=== PATIENT | male | born 1950 | race Caucasian/White ===

== ENCOUNTER 2016-12-11 20:23 | Inpatient (IN) | payer MEDICARE, OTHER ==
[~2016-12-11] VITALS: Ht 167.6 cm; Wt 110.7 kg
[~2016-12-11 20:23] MED LIST: ALBU6.7H INH; ASPI325T PO; DIGO.25 PO; DILTCD300 PO; DUONI INH; FURO80TA3 PO; HYDRA25 PO; LORA-392 PO; LOSA25 PO; METO100T PO; NEBUMIS6 INH; OMEP20CA5 PO; OXYC1TAB13 PO; POTA-243 PO; PRAV20TA67 PO; PRED10 PO; SYMB160A INH; TIOT18I INH; Z.0.OXYGENDME NC
[2016-12-11] MEDS ORDERED: SODIUM CHLOR 0.9% 1000 ML INJ 1,000 ML IV ONE ×2 (20:26→20:45)
[2016-12-11 20:29] VITALS: BP 199/81; PULSE 136; RESP 33; TEMP 100.1; O2SAT 99
[2016-12-11] MEDS ORDERED: SODIUM CHLORIDE 0.9% FLUSH 10 ML FLUSH IVF PRN (20:30)
--- NOTE | 2016-12-11 20:36 | PD ---
HPI Chief Complaint: seizure Time Seen by Provider: 20:36 Travel History International Travel<30 days: No Contact w/Intl Traveler<30days: No Traveled to known affect area: No History of Present Illness HPI 66-year-old male with history of CAD, [place] 2, hypertension, COPD, A. fib on digoxin, alcoholism per record, presents to the emergency department for evaluation. Patient allegedly contacted a friend feeling is that he is having anxiety attack. Patient then had a witnessed seizure and another one in route witnessed by [facility]. Abrasion was given 4 mg of Ativan. While postictal, he was combative with [facility] staff. Patient is a poor historian, answers yes when asked if he drinks alcohol regularly and answered no when asked if he has been drinking today. Patient says no when asked if he is having any pain. Patient has obvious bite to the tongue. No apparent stool or bladder incontinence. PFSH Past Medical History Arthritis: Yes Asthma: Yes Blood Disorders: No Anxiety: Yes Depression: No Heart Rhythm Problems: Yes ( ) Cancer: No Cardiac Catheterization: Yes (X2) Cardiovascular Problems: Yes High Cholesterol: Yes Chemotherapy: No Chest Pain: Yes Congestive Heart Failure: Yes COPD: Yes Coronary Artery Disease: Yes (STATES PARTIAL BLOCKAGES) Diabetes: No Diminished Hearing: No Endocrine: No Gastrointestinal Disorders: Yes GERD: Yes Genitourinary: No Headaches: Yes Hypertension: Yes Immune Disorder: No Kidney Stones: Yes Musculoskeletal: Yes Neurologic: Yes Psychiatric: Yes Reproductive: No Respiratory: Yes (CHRONIC BRONCHITIS) Immunizations Current: Yes Myocardial Infarction: Yes (STATES SMALL ONES TIMES TWO) Radiation Therapy: No Ulcer: Yes Past Surgical History AICD: No Arteriovenous Shunt: No Body Medical Devices: IMPLANTED TITANIUM DEVICES [RODS & SCREWS] IN BACK Coronary Artery Bypass Graft: Yes Insulin Pump: No Joint Replacement: No Oral Surgery: Yes (CYST REMOVED THROAT 70'S) Pacemaker: No Other Surgery: Yes (CARPAL TUNNEL) Social History Alcohol Use: Yes (FEW/WEEK) Tobacco Use: Yes (QUIT 19 DAYS AGO) Substance Use: No Allergies-Medications (Allergen,Severity, Reaction): Coded Allergies: Lisinopril (Verified Allergy, Severe, Edema, 12/11/16) Simvastatin (Verified Allergy, Severe, 12/11/16) Reported Meds & Prescriptions Reported Meds & Active Scripts Active Review of Systems Except as stated in HPI: all other systems reviewed are Neg Physical Exam Narrative GENERAL: Well nourished male patient, obtunded; arousable with garbled speech and snoring respirations SKIN: Focused skin assessment warm/dry. 3cm, approximated Skin tear to left hand. multiple ecchymotic markings on Bilateral upper extremities. HEAD: Atraumatic. Normocephalic. EYES: Pupils equal and round. No scleral icterus. No injection or drainage. ENT: No nasal bleeding or discharge. Mucous membranes pink and moist. Poor dentition; bite to right side of tongue NECK: Trachea midline. No JVD. CARDIOVASCULAR: Tachycardic rate and irregular rhythm. No murmur appreciated. RESPIRATORY: No accessory muscle use. Clear to auscultation. Breath sounds equal bilaterally. GASTROINTESTINAL: Abdomen soft, rotund hepatic and splenic margins not palpable. MUSCULOSKELETAL: No obvious deformities. No clubbing. No cyanosis. No edema. NEUROLOGICAL: Obtunded.Unable to assess cranial nerves. Moves all extremities Garbled speech. Data Data Last Documented VS Vital Signs Date Time Temp Pulse Resp B/P Pulse Ox O2 Delivery O2 Flow Rate FiO2 12/11/16 21:15 114 25 145/80 99 Nasal Cannula 2 12/11/16 20:29 100.1 Orders Complete Blood Count With Diff (12/11/16 20:26) Alcohol (Ethanol) (12/11/16 20:26) Electrocardiogram (12/11/16 ) Ct Brain W/O Iv Contrast(Rout) (12/11/16 ) Blood Glucose (12/11/16 20:26) Ecg Monitoring (12/11/16 20:26) Iv Access Insert/Monitor (12/11/16 20:26) Oximetry (12/11/16 20:26) Comprehensive Metabolic Panel (12/11/16 20:26) Sodium Chlor 0.9% 1000 Ml Inj (Ns 1000 M (12/11/16 20:26) Sodium Chloride 0.9% Flush (Ns Flush) (12/11/16 20:30) Ua Includes Microscopic (12/11/16 20:26) Ct Facial Bones W/O Iv Cont (12/11/16 ) Magnesium (Mg) (12/11/16 20:26) Sodium Chlor 0.9% 1000 Ml Inj (Ns 1000 M (12/11/16 20:45) Lorazepam Inj (Ativan Inj) (12/11/16 20:45) Lactic Acid Sepsis Protocol (12/11/16 20:39) Blood Culture (12/11/16 20:39) Chest, Single Ap (12/11/16 20:39) Oxygen Administration (12/11/16 20:39) Vancomycin Inj (Vancomycin Inj) (12/11/16 20:39) Cefepime Inj (Maxipime Inj) (12/11/16 20:39) Digoxin (12/11/16 20:57) 3% Saline Inj (Sodium Chloride 3% Inj) (12/11/16 22:00) Admit Order (Ed Use Only) (12/11/16 21:49) Labs Laboratory Tests Test 12/11/16 20:30 White Blood Count 20.5 TH/MM3 Red Blood Count 3.84 MIL/MM3 Hemoglobin 11.5 GM/DL Hematocrit 33.4 % Mean Corpuscular Volume 87.0 FL Mean Corpuscular Hemoglobin 30.1 PG Mean Corpuscular Hemoglobin 34.5 % Concent Red Cell Distribution Width 14.4 % Platelet Count 324 TH/MM3 Mean Platelet Volume 8.7 FL Neutrophils (%) (Auto) 84.1 % Lymphocytes (%) (Auto) 7.0 % Monocytes (%) (Auto) 8.7 % Eosinophils (%) (Auto) 0.1 % Basophils (%) (Auto) 0.1 % Neutrophils # (Auto) 17.2 TH/MM3 Lymphocytes # (Auto) 1.4 TH/MM3 Monocytes # (Auto) 1.8 TH/MM3 Eosinophils # (Auto) 0.0 TH/MM3 Basophils # (Auto) 0.0 TH/MM3 CBC Comment AUTO DIFF Sodium Level 112 MEQ/L Potassium Level 4.5 MEQ/L Chloride Level 76 MEQ/L Carbon Dioxide Level 18.7 MEQ/L Anion Gap 17 MEQ/L Blood Urea Nitrogen 12 MG/DL Creatinine 1.06 MG/DL Estimat Glomerular Filtration 70 ML/MIN Rate Random Glucose 99 MG/DL Calcium Level 8.2 MG/DL Magnesium Level 1.9 MG/DL Total Bilirubin 1.4 MG/DL Aspartate Amino Transf 31 U/L (AST/SGOT) Alanine Aminotransferase 31 U/L (ALT/SGPT) Alkaline Phosphatase 179 U/L Total Protein 6.9 GM/DL Albumin 3.8 GM/DL Ethyl Alcohol Level LESS THAN 3 MG/DL MDM Medical Decision Making Medical Screen Exam Complete: Yes Emergency Medical Condition: Yes Medical Record Reviewed: Yes Differential Diagnosis Alcohol withdrawal seizure versus electrolyte abnormality versus abscess versus cardiac etiology versus ich Narrative Course 56-year-old male presents to the emergency department for evaluation following a seizure patient was given 4 mg of Ativan in route. He is assessed by myself and my attending physician Dr. Ring. Patient is given additional Ativan. No seizure activity here. Patient appears to be postictal, attentive, arousable. He is poor historian . He has obvious bite to his tongue. Poor dentition. Sepsis workup was initiated. Pt is given IV Cefepime and Vancomycin Laboratory Tests Test 12/11/16 20:30 White Blood Count 20.5 TH/MM3 Red Blood Count 3.84 MIL/MM3 Hemoglobin 11.5 GM/DL Hematocrit 33.4 % Mean Corpuscular Volume 87.0 FL Mean Corpuscular Hemoglobin 30.1 PG Mean Corpuscular Hemoglobin 34.5 % Concent Red Cell Distribution Width 14.4 % Platelet Count 324 TH/MM3 Mean Platelet Volume 8.7 FL Neutrophils (%) (Auto) 84.1 % Lymphocytes (%) (Auto) 7.0 % Monocytes (%) (Auto) 8.7 % Eosinophils (%) (Auto) 0.1 % Basophils (%) (Auto) 0.1 % Neutrophils # (Auto) 17.2 TH/MM3 Lymphocytes # (Auto) 1.4 TH/MM3 Monocytes # (Auto) 1.8 TH/MM3 Eosinophils # (Auto) 0.0 TH/MM3 Basophils # (Auto) 0.0 TH/MM3 CBC Comment AUTO DIFF Sodium Level 112 MEQ/L Potassium Level 4.5 MEQ/L Chloride Level 76 MEQ/L Carbon Dioxide Level 18.7 MEQ/L Anion Gap 17 MEQ/L Blood Urea Nitrogen 12 MG/DL Creatinine 1.06 MG/DL Estimat Glomerular Filtration 70 ML/MIN Rate Random Glucose 99 MG/DL Calcium Level 8.2 MG/DL Magnesium Level 1.9 MG/DL Total Bilirubin 1.4 MG/DL Aspartate Amino Transf 31 U/L (AST/SGOT) Alanine Aminotransferase 31 U/L (ALT/SGPT) Alkaline Phosphatase 179 U/L Total Protein 6.9 GM/DL Albumin 3.8 GM/DL Ethyl Alcohol Level LESS THAN 3 MG/DL Dr. Ring contacted Dr. De Dios, bender helper inspector structural bonding. Patient be admitted to the intensive care unit. He remains obtunded, arousable, with garbled speech, following simple commands. CT imaging has been ordered however this is Dr. completed due to patient's constant moving. CT has been contacted and to reattempt this. Diagnosis Primary Impression: Seizure Additional Impressions: Hyponatremia Alcoholism Admitting Information Admitting Physician Requests: Admit Condition: Stable Keisha Rodrigues Dec 11, 2016 20:36
[2016-12-11] MEDS ORDERED: CEFEPIME INJ 2,000 MG in SODIUM CHLORIDE 0.9% INJ 100 ML IV STA (20:39)
[2016-12-11] MEDS ORDERED: VANCOMYCIN INJ 1,000 MG in SODIUM CHLOR 0.9% 250 ML INJ 250 ML IV STA (20:39)
[2016-12-11 20:45] VITALS: BP 168/77; PULSE 120; RESP 25; O2SAT 99
[2016-12-11] MEDS ORDERED: LORazepam 2 MG/ML VIAL IV PUSH ONE (20:45)
[2016-12-11 21:08] LABS: AUTOMATED NEUTROPHIL # 17.2 TH/MM3 (1.8-7.7); BASOPHIL % 0.1 % (0.0-2.0); EOSINOPHIL % 0.1 % (0.0-4.0); HEMATOCRIT 33.4 % (39.0-51.0); LYMPHOCYTE # 1.4 TH/MM3 (1.0-4.8); MEAN CORPUSCULAR HEMOGLOBIN 30.1 PG (27.0-34.0); MEAN CORPUSCULAR HGB CONC 34.5 % (32.0-36.0); MONO % 8.7 % (0.0-8.0); NEUT % 84.1 % (16.0-70.0); PLATELET COUNT 324 TH/MM3 (150-450); RED BLOOD COUNT 3.84 MIL/MM3 (4.50-5.90); RED CELL DISTRIBUTION WIDTH 14.4 % (11.6-17.2); WHITE BLOOD COUNT 20.5 TH/MM3 (4.0-11.0)
[2016-12-11 21:15] VITALS: BP 145/80; PULSE 114; RESP 25; O2SAT 99
[2016-12-11 21:22] LABS: HEMO FLAGS AUTO DIFF
--- NOTE | 2016-12-11 21:33 | RADRPT ---
EXAM DATE/TIME: 12/11/2016 20:53 [facility] COMPARISON: CHEST PA & LAT, September 05, 2014, 9:43. CHEST SINGLE AP, August 24, 2014, 16:36. INDICATIONS : Sycopal episode. MEDICAL HISTORY : Unobtainable. SURGICAL HISTORY : Unobtainable. ENCOUNTER: Initial ACUITY: 1 day PAIN SCORE: Non-responsive. LOCATION: chest FINDINGS: Single AP view of the chest. Mild cardiac silhouette enlargement of central pulmonary vasculature pro minence and mild indistinctness. No evidence of pleural effusion or pneumothorax. CONCLUSION: Mild cardiac silhouette enlargement and mild pulmonary vascular congestion. Morteza Zamora MD on December 11, 2016 at 21:29 Board Certified Radiologist. This report was verified electronically.
[2016-12-11 21:39] LABS: ALKALINE PHOSPHATASE 179 U/L (45-117); ALT (GPT) 31 U/L (12-78); ANION GAP 17 MEQ/L (5-15); AST (GOT) 31 U/L (15-37); BICARBONATE 18.7 MEQ/L (21.0-32.0); BLOOD UREA NITROGEN 12 MG/DL (7-18); CHLORIDE 76 MEQ/L (98-107); GLOMERULAR FILTRATION RATE 70 ML/MIN (>89); MAGNESIUM 1.9 MG/DL (1.5-2.5); POTASSIUM 4.5 MEQ/L (3.5-5.1); TOTAL BILIRUBIN ADULT 1.4 MG/DL (0.2-1.0)
[2016-12-11 21:42] LABS: SODIUM (NA) 112 MEQ/L (136-145)
--- NOTE | 2016-12-11 21:58 | PD ---
Data Data Last Documented VS Vital Signs Date Time Temp Pulse Resp B/P Pulse Ox O2 Delivery O2 Flow Rate FiO2 12/11/16 21:15 114 25 145/80 99 Nasal Cannula 2 12/11/16 20:29 100.1 Orders Complete Blood Count With Diff (12/11/16 20:26) Alcohol (Ethanol) (12/11/16 20:26) Electrocardiogram (12/11/16 ) Ct Brain W/O Iv Contrast(Rout) (12/11/16 ) Blood Glucose (12/11/16 20:26) Ecg Monitoring (12/11/16 20:26) Iv Access Insert/Monitor (12/11/16 20:26) Oximetry (12/11/16 20:26) Comprehensive Metabolic Panel (12/11/16 20:26) Sodium Chlor 0.9% 1000 Ml Inj (Ns 1000 M (12/11/16 20:26) Sodium Chloride 0.9% Flush (Ns Flush) (12/11/16 20:30) Ua Includes Microscopic (12/11/16 20:26) Ct Facial Bones W/O Iv Cont (12/11/16 ) Magnesium (Mg) (12/11/16 20:26) Sodium Chlor 0.9% 1000 Ml Inj (Ns 1000 M (12/11/16 20:45) Lorazepam Inj (Ativan Inj) (12/11/16 20:45) Lactic Acid Sepsis Protocol (12/11/16 20:39) Blood Culture (12/11/16 20:39) Chest, Single Ap (12/11/16 20:39) Oxygen Administration (12/11/16 20:39) Vancomycin Inj (Vancomycin Inj) (12/11/16 20:39) Cefepime Inj (Maxipime Inj) (12/11/16 20:39) Digoxin (12/11/16 20:57) 3% Saline Inj (Sodium Chloride 3% Inj) (12/11/16 22:00) Admit Order (Ed Use Only) (12/11/16 21:49) Labs Laboratory Tests Test 12/11/16 20:30 White Blood Count 20.5 TH/MM3 Red Blood Count 3.84 MIL/MM3 Hemoglobin 11.5 GM/DL Hematocrit 33.4 % Mean Corpuscular Volume 87.0 FL Mean Corpuscular Hemoglobin 30.1 PG Mean Corpuscular Hemoglobin 34.5 % Concent Red Cell Distribution Width 14.4 % Platelet Count 324 TH/MM3 Mean Platelet Volume 8.7 FL Neutrophils (%) (Auto) 84.1 % Lymphocytes (%) (Auto) 7.0 % Monocytes (%) (Auto) 8.7 % Eosinophils (%) (Auto) 0.1 % Basophils (%) (Auto) 0.1 % Neutrophils # (Auto) 17.2 TH/MM3 Lymphocytes # (Auto) 1.4 TH/MM3 Monocytes # (Auto) 1.8 TH/MM3 Eosinophils # (Auto) 0.0 TH/MM3 Basophils # (Auto) 0.0 TH/MM3 CBC Comment AUTO DIFF Sodium Level 112 MEQ/L Potassium Level 4.5 MEQ/L Chloride Level 76 MEQ/L Carbon Dioxide Level 18.7 MEQ/L Anion Gap 17 MEQ/L Blood Urea Nitrogen 12 MG/DL Creatinine 1.06 MG/DL Estimat Glomerular Filtration 70 ML/MIN Rate Random Glucose 99 MG/DL Calcium Level 8.2 MG/DL Magnesium Level 1.9 MG/DL Total Bilirubin 1.4 MG/DL Aspartate Amino Transf 31 U/L (AST/SGOT) Alanine Aminotransferase 31 U/L (ALT/SGPT) Alkaline Phosphatase 179 U/L Total Protein 6.9 GM/DL Albumin 3.8 GM/DL Ethyl Alcohol Level LESS THAN 3 MG/DL MDM Supervised Visit with VERENA: Yes Narrative Course The history, exam, and medical decision-making in the associated mid-level provider note were completed with my assistance. I reviewed and agree with the findings presented. I attest that I had a [id number] encounter with the patient on the same day, and personally performed and documented my assessment and findings in the medical record. *My assessment and Findings: 66-year-old man with seizures, tachycardic and tremulous history of occult was him. Concern for alcohol withdrawal or sepsis. Sodium is at 112. Likely some component of chronic disease. Was given antibiotics, benzodiazepines, IV fluids. Patient was admitted to the ICU. We'll give hypertonic saline, and reassess. Condition: Stable Abdon Ring MD Dec 11, 2016 21:58
[2016-12-11] MEDS ORDERED: 3% SALINE INJ 250 ML IV ONE (22:00)
[2016-12-11 22:04] LABS: BLOOD, URINE NEG (NEG); GLUCOSE,URINE NEG (NEG); HYALINE CAST, URINE 3 /lpf (RARE); KETONE, URINE 10 mg/dL (NEG); NITRITE,URINE NEG (NEG); PH, URINE 6.5 (5.0-8.5); SQUAMOUS EPITHELIAL CELL URINE <1 /hpf (0-5); URINE COLOR YELLOW (YELLW/STRAW)
[2016-12-11] MEDS ORDERED: SODIUM CHLOR 0.9% 1000 ML INJ 1,000 ML IV SCH (22:04)
--- NOTE | 2016-12-11 22:12 | HHI.HP ---
[facility] Service Critical Care Medicine Primary Care Physician [facility] Admission Diagnosis SEIZURES; HYPONATREMIA; SUSPECTED ALCOHOL WITHDRAWAL Diagnosis: Travel History International Travel<30 Days: No Contact w/Intl Traveler <30 Da: No Traveled to Known Affected Are: No History of Present Illness 66-year-old male with history of CAD, [place] 2, hypertension, COPD, A. fib on digoxin, alcoholism per record, presents to the emergency department for evaluation. Patient allegedly contacted a friend feeling is that he is having anxiety attack. Patient then had a witnessed seizure and another one in route witnessed by [facility]. Abrasion was given 4 mg of Ativan. While postictal, he was combative with [facility] staff. Patient is a poor historian, answers yes when asked if he drinks alcohol regularly and answered no when asked if he has been drinking today. Patient says no when asked if he is having any pain. Patient has obvious bite to the tongue. No apparent stool or bladder incontinence. Review of Systems ROS Unable to obtain patient is too lethargic and confused Past Family Social History Allergies: Coded Allergies: Lisinopril (Verified Allergy, Severe, Edema, 12/11/16) Simvastatin (Verified Allergy, Severe, 12/11/16) Past Medical History COPD Chronic back pain Alcohol abuse Tobacco abuse Coronary artery disease CHF with EF 50-55% Atrial fibrillation Hypertension Past Surgical History Carpal tunnel surgery CABG Reported Medications Reported Meds & Active Scripts Active Active Prescriptions or Reported Medications Unobtainable Active Ordered Medications Current Medications Medications (Trade) Dose Ordered Sig/Theron Route PRN Reason Start Time Stop Time Status Last Admin Dose Admin Sodium Chloride 250 ml @ 10 mls/hr ONCE ONCE IV 12/11/16 22:00 12/12/16 22:59 12/11/16 22:43 Sodium Chloride (NS 1000 ml Inj) 1,000 ml @ 84 mls/hr [id number] IV 12/11/16 22:04 12/11/16 22:24 Sodium Chloride (NS Flush) 2 ml UNSCH PRN .XX FLUSH AFTER USING IV ACCESS 12/11/16 22:15 Sodium Chloride (NS Flush) 2 ml BID .XX 12/12/16 09:00 Acetaminophen (Tylenol) 650 mg Q6H PRN PO PAIN 1-10 AND/OR FEVER >101F 12/11/16 22:15 Morphine Sulfate (Morphine Inj) 2 mg Q2H PRN IV PAIN SCALE 6 TO 10 12/11/16 22:15 Pantoprazole Sodium (Protonix Inj) 40 mg DAILY IV 12/12/16 09:00 Ondansetron HCl (Zofran Inj) 4 mg Q6H PRN IV MILD NAUSEA OR VOMITING 12/11/16 22:15 Metoclopramide HCl (Reglan Inj) 10 mg Q6H PRN IV MODERATE NAUSEA OR VOMITING 12/11/16 22:15 Prochlorperazine (Compazine Supp) 25 mg Q12H PRN RECTAL NAUSEA OR VOMITING 12/11/16 22:15 Zolpidem Tartrate (Ambien) 5 mg HS PRN PO INSOMNIA 12/11/16 22:15 Miscellaneous Information 1 [id number] XX 12/11/16 22:15 12/12/16 00:30 Chlorhexidine Gluconate (Chlorhexidine 2% Cloth) 3 pack Taper DAILY@04 TOP 12/12/16 04:00 12/08/17 03:59 12/12/16 01:00 Chlorhexidine Gluconate (Chlorhexidine 2% Cloth) 3 pack UNSCH PRN TOP HYGIENIC CARE 12/11/16 22:15 Senna/Docusate Sodium (Lisa-Colace) 1 tab BID PO 12/12/16 09:00 Magnesium Hydroxide (Milk Of Magnesia Liq) 30 ml Q12H PRN PO MILD - MODERATE CONSTIPATION 12/11/16 22:15 Sennosides (Senokot) 17.2 mg Q12H PRN PO MODERATE - SEVERE CONSTIPATION 12/11/16 22:15 Bisacodyl (Dulcolax Supp) 10 mg DAILY PRN RECTAL SEVERE CONSITIPATION 12/11/16 22:15 Lactulose (Lactulose Liq) 30 ml DAILY PRN PO SEVERE CONSITIPATION 12/11/16 22:15 Flumazenil (Romazicon Inj) 0.2 mg Q1M PRN IV PUSH SEE LABEL COMMENTS 12/11/16 22:45 Lorazepam (Ativan) 1 mg Q4H PRN PO CIWA 8 - 10 12/11/16 22:45 Lorazepam (Ativan Inj) 1 mg Q4H PRN IV PUSH CIWA 8 - 10 12/11/16 22:45 Lorazepam (Ativan) 2 mg Q2H PRN PO CIWA 11-14 12/11/16 22:45 Lorazepam (Ativan Inj) 2 mg Q2H PRN IV PUSH CIWA 11-14 12/11/16 22:45 Lorazepam (Ativan Inj) 2 mg Q1H PRN IV PUSH CIWA 15-20 12/11/16 22:45 Lorazepam (Ativan Inj) 2 mg Q15M PRN IV PUSH CIWA > 20 12/11/16 22:45 Family History Noncontributory Social History Tobacco and alcohol abuse No illicit drug abuse Physical Exam Vital Signs Vital Signs Date Time Temp Pulse Resp B/P Pulse Ox O2 Delivery O2 Flow Rate FiO2 12/11/16 21:15 114 25 145/80 99 Nasal Cannula 2 12/11/16 20:45 99 Nasal Cannula 2 12/11/16 20:45 120 25 168/77 99 Nasal Cannula 2 12/11/16 20:29 100.1 136 33 199/81 99 Physical Exam GENERAL: Obese male confused and lethargic however in no acute distress SKIN: Warm and dry. HEAD: Normocephalic. EYES: No scleral icterus. No injection or drainage. NECK: Supple, trachea midline. No JVD or lymphadenopathy. CARDIOVASCULAR: Regular rate and rhythm without murmurs, gallops, or rubs. RESPIRATORY: Breath sounds equal bilaterally. No accessory muscle use. GASTROINTESTINAL: Abdomen soft, non-tender, nondistended. MUSCULOSKELETAL: No cyanosis, or edema. BACK: Nontender without obvious deformity. No CVA tenderness. EXTREMITIES: No clubbing cyanosis or edema Laboratory Laboratory Tests Test 12/11/16 12/11/16 20:30 21:30 White Blood Count 20.5 Red Blood Count 3.84 Hemoglobin 11.5 Hematocrit 33.4 Mean Corpuscular Volume 87.0 Mean Corpuscular Hemoglobin 30.1 Mean Corpuscular Hemoglobin 34.5 Concent Red Cell Distribution Width 14.4 Platelet Count 324 Mean Platelet Volume 8.7 Neutrophils (%) (Auto) 84.1 Lymphocytes (%) (Auto) 7.0 Monocytes (%) (Auto) 8.7 Eosinophils (%) (Auto) 0.1 Basophils (%) (Auto) 0.1 Neutrophils # (Auto) 17.2 Lymphocytes # (Auto) 1.4 Monocytes # (Auto) 1.8 Eosinophils # (Auto) 0.0 Basophils # (Auto) 0.0 CBC Comment AUTO DIFF Sodium Level 112 Potassium Level 4.5 Chloride Level 76 Carbon Dioxide Level 18.7 Anion Gap 17 Blood Urea Nitrogen 12 Creatinine 1.06 Estimat Glomerular Filtration 70 Rate Random Glucose 99 Calcium Level 8.2 Magnesium Level 1.9 Total Bilirubin 1.4 Aspartate Amino Transf 31 (AST/SGOT) Alanine Aminotransferase 31 (ALT/SGPT) Alkaline Phosphatase 179 Total Protein 6.9 Albumin 3.8 Ethyl Alcohol Level LESS THAN 3 Urine Color YELLOW Urine Turbidity CLEAR Urine pH 6.5 Urine Specific [place] 1.008 Urine Protein 30 Urine Glucose (UA) NEG Urine Ketones 10 Urine Occult Blood NEG Urine Nitrite NEG Urine Bilirubin NEG Urine Urobilinogen LESS THAN 2.0 Urine Leukocyte Esterase NEG Urine WBC LESS THAN 1 Urine Squamous Epithelial <1 Cells Urine Hyaline Casts 3 Microscopic Urinalysis Comment Date/Time Procedure Status Source Growth 12/11/16 20:45 Aerobic Blood Culture Received Blood Peripheral Pending 12/11/16 20:45 Anaerobic Blood Culture Received Blood Peripheral Pending Result Diagram: 12/11/16202912/11/162029 Imaging Last 24 hours Impressions Chest X-Ray 12/11/162038 Signed Impressions: Service Date/Time: Sunday, December 11, 2016 20:53 - CONCLUSION: Mild cardiac silhouette enlargement and mild pulmonary vascular congestion. Morteza Zamora MD Assessment and Plan Assessment and Plan Seizure - Underlying severe hyponatremia - Possible alcohol withdrawal - Ativan when necessary - Monitor for withdrawal - CIWA protocol Hyponatremia - Most likely chronic due to alcohol abuse - 3% sodium chloride initiated in the ED due to neurological symptomatology - Sodium level every 4 hours Alcohol abuse - Monitor for withdrawal - CIWA protocol and medications Lactic acidosis - Due to seizure - Aggressive IV fluid hydration - Monitor trend DVT GI prophylaxis - Teds SCDs subcutaneous heparin - IV Protonix Critical Care: The total critical care time was 35 minutes. Time to perform other separately billable procedures was not included in the critical care time. Raheem De Dios MD Dec 11, 2016 22:12
[2016-12-11] MEDS ORDERED: METOCLOPRAMIDE HCL 10 MG/2 ML VIAL IV PRN (22:15)
[2016-12-11] MEDS ORDERED: SENNOSIDES 8.6 MG TAB PO PRN (22:15)
[2016-12-11] MEDS ORDERED: BISACODYL 10 MG SUPP RECTAL PRN (22:15)
[2016-12-11] MEDS ORDERED: MORPHINE SULFATE 4 MG/ML INJ IV PRN (22:15)
[2016-12-11] MEDS ORDERED: MISCELLANEOUS NURSING INFORMATION XX SCH (22:15)
[2016-12-11] MEDS ORDERED: PROCHLORPERAZINE 25 MG SUPP RECTAL PRN (22:15)
[2016-12-11] MEDS ORDERED: SODIUM CHLORIDE 0.9% FLUSH 10 ML FLUSH PRN (22:15)
[2016-12-11] MEDS ORDERED: ONDANSETRON HCL 4 MG/2 ML VIAL IV PRN (22:15)
[2016-12-11] MEDS ORDERED: LACTULOSE SYRUP 20 GM/30 ML CUP PO PRN (22:15)
[2016-12-11] MEDS ORDERED: ZOLPIDEM TARTRATE 5 MG TAB PO PRN (22:15)
[2016-12-11] MEDS ORDERED: CHLORHEXIDINE GLUCONATE 2 % 1 PACK (2 CLOTHS) TOP PRN (22:15)
[2016-12-11] MEDS ORDERED: MAGNESIUM HYDROXIDE SUSP 30 ML CUP PO PRN (22:15)
[2016-12-11] MEDS ORDERED: ACETAMINOPHEN 325 MG TAB PO PRN (22:15)
[2016-12-11 22:23] VITALS: BP 174/67; PULSE 105; RESP 22; O2SAT 100
[2016-12-11] MEDS ORDERED: FLUMAZENIL 0.5 MG/5 ML VIAL IV PUSH PRN (22:45)
[2016-12-11] MEDS ORDERED: LORazepam 2 MG/ML VIAL IV PUSH PRN (22:45)
[2016-12-11] MEDS ORDERED: LORazepam 2 MG TAB PO PRN (22:45)
[2016-12-11] MEDS ORDERED: LORazepam 1 MG TAB PO PRN (22:45)
[2016-12-11 22:49] LABS: AMPHETAMINE, URINE NEG (NEG); BARBITURATES, URINE NEG (NEG); COCAINE, URINE NEG (NEG)
[2016-12-11 22:57] VITALS: BP 166/77; PULSE 98; RESP 23; TEMP 100.5; O2SAT 100
[2016-12-11 22:57] LABS: DIGOXIN LESS THAN 0.1 NG/ML (0.8-2.0)
[2016-12-11 22:58] LABS: LACTIC ACID GHOST NOT REPORTABLE
[2016-12-11 23:38] LABS: PLATELET ESTIMATE SMEAR NORMAL (NORMAL); PLATELET MORPHOLOGY NORMAL (NORMAL); SCAN/DIFF AUTO DIFF CONFIRMED
[2016-12-12] VITALS (15 sets, daily range): BP systolic 108–173; BP diastolic 61–104; PULSE 92–130; RESP 17–30; TEMP 97.2–98.9; O2SAT 92–97
--- NOTE | 2016-12-12 00:39 | RADRPT ---
EXAM DATE/TIME: 12/12/2016 00:11 [facility] COMPARISON: No previous studies available for comparison. INDICATIONS : Trauma, fall. Altered mental status. RADIATION DOSE: 56.35 CTDIvol (mGy) MEDICAL HISTORY : Non-responsive. SURGICAL HISTORY : Non-responsive. ENCOUNTER: Initial ACUITY: 1 day PAIN SCALE: Non-responsive LOCATION: cranial TECHNIQUE: Multiple contiguous axial images were obtained of the head. Using automated exposure control and adj ustment of the mA and/or kV according to patient size, radiation dose was kept as low as reasonably a chievable to obtain optimal diagnostic quality images. FINDINGS: CEREBRUM: The ventricles are normal for age. No evidence of midline shift, mass lesion, hemorrhage or acute in farction. No extra-axial fluid collections are seen. POSTERIOR FOSSA: The cerebellum and brainstem are intact. The 4th ventricle is midline. The cerebellopontine angle i s unremarkable. EXTRACRANIAL: The visualized portion of the orbits is intact. SKULL: The calvaria is intact. No evidence of skull fracture. CONCLUSION: Normal examination for a patient of this age. Robe Lester MD on December 12, 2016 at 0:35 Board Certified Radiologist. This report was verified electronically.
--- NOTE | 2016-12-12 00:43 | RADRPT ---
EXAM DATE/TIME: 12/12/2016 00:13 [facility] COMPARISON: No previous studies available for comparison. INDICATIONS : Trauma, fall. Altered mental status / sepsis. RADIATION DOSE: 21.96 CTDIvol (mGy) MEDICAL HISTORY : Non-responsive. SURGICAL HISTORY : Non-responsive. ENCOUNTER: Initial ACUITY: 1 day PAIN SCORE: Non-responsive LOCATION: facial TECHNIQUE: Volumetric scanning of the facial bones was performed. Using automated exposure control and adjustme nt of the mA and/or kV according to patient size, radiation dose was kept as low as reasonably achiev able to obtain optimal diagnostic quality images. FINDINGS: ORBITS: The orbital and infraorbital osseous structures are intact. The retroconal structures have a normal configuration. No radiopaque foreign bodies are seen. NASAL BONE: The nasal bone and maxillary spine are intact ZYGOMATIC ARCHES: Symmetric without evidence of fracture. SINUSES: The maxillary, ethmoid and frontal sinuses are intact. No air-fluid levels seen. NASAL CAVITY: The nasal septum is intact and midline. The lacrimal ducts are intact. SOFT TISSUES: No radiopaque foreign bodies seen. No soft-tissue swelling is seen. INTRACRANIAL: No intracranial air seen. CRIBIFORM PLATE: Grossly intact. CONCLUSION: 1. No acute findings. Exam degraded by some motion artifact. Robe Lester MD on December 12, 2016 at 0:38 Board Certified Radiologist. This report was verified electronically.
[2016-12-12] MEDS: CHLORHEXIDINE GLUCONATE 2 % 1 PACK (2 CLOTHS) TOP SCH (01:00)
[2016-12-12 03:47] LABS: BASOPHIL % 0.3 % (0.0-2.0); EOSINOPHIL % 0.3 % (0.0-4.0); HEMATOCRIT 29.9 % (39.0-51.0); HEMO FLAGS DIFF FINAL; LYMPH % 9.1 % (9.0-44.0); LYMPHOCYTE # 1.1 TH/MM3 (1.0-4.8); MEAN CELL VOLUME 87.5 FL (80.0-100.0); MEAN CORPUSCULAR HGB CONC 35.4 % (32.0-36.0); MONO % 10.4 % (0.0-8.0); NEUT % 79.9 % (16.0-70.0); PLATELET COUNT 164 TH/MM3 (150-450); RED BLOOD COUNT 3.42 MIL/MM3 (4.50-5.90); RED CELL DISTRIBUTION WIDTH 14.2 % (11.6-17.2); WHITE BLOOD COUNT 12.5 TH/MM3 (4.0-11.0)
[2016-12-12 04:10] LABS: PROTHROMBIN TIME - PATIENT 11.5 SEC (9.8-11.6)
[2016-12-12 04:21] LABS: ALT (GPT) 27 U/L (12-78); ANION GAP 11 MEQ/L (5-15); AST (GOT) 48 U/L (15-37); BICARBONATE 25.4 MEQ/L (21.0-32.0); BLOOD UREA NITROGEN 11 MG/DL (7-18); CHLORIDE 91 MEQ/L (98-107); GLOMERULAR FILTRATION RATE 107 ML/MIN (>89); MAGNESIUM 2.1 MG/DL (1.5-2.5); POTASSIUM 3.6 MEQ/L (3.5-5.1); SODIUM (NA) 127 MEQ/L (136-145)
[2016-12-12 04:25] LABS: ALKALINE PHOSPHATASE 139 U/L (45-117); CREATINE KINASE 1587 U/L (39-308); TOTAL BILIRUBIN ADULT 0.9 MG/DL (0.2-1.0)
[2016-12-12 04:49] LABS: CKMB 10.1 NG/ML (0.5-3.6)
[2016-12-12] MEDS: DEXT 5%-NACL 0.45% 1000 ML INJ 1,000 ML IV SCH ×2 (05:48→17:16)
[2016-12-12] MEDS: SODIUM CHLORIDE 0.9% FLUSH 10 ML FLUSH SCH ×2 (08:27→20:05)
[2016-12-12] MEDS: PANTOPRAZOLE SODIUM 40 MG VIAL IV SCH (08:27)
[2016-12-12] MEDS: DOCUSATE SODIUM 50 MG/SENNA 8.6 MG TAB PO SCH ×2 (08:27→20:05)
--- NOTE | 2016-12-12 12:01 | HHI.CCPN ---
Subjective Remarks/Hospital Course 66-year-old male with history of CAD, [place] 2, hypertension, COPD, A. fib on digoxin, alcoholism per record, presents to the emergency department for evaluation. Patient allegedly contacted a friend feeling is that he is having anxiety attack. Patient then had a witnessed seizure and another one in route witnessed by [facility]. Abrasion was given 4 mg of Ativan. While postictal, he was combative with [facility] staff. Patient is a poor historian, answers yes when asked if he drinks alcohol regularly and answered no when asked if he has been drinking today. Patient says no when asked if he is having any pain. Patient has obvious bite to the tongue. No apparent stool or bladder incontinence. Subjective: 12/12: Patient has been lethargic all morning, polyuria. Approximately 1 L/hour over the last 4 hours diuresis. Hyponatremia lab workup initiated. This likely due to 3% normal saline instillation in the ED, an osmotic diuresis. Neurological monitoring, hourly. Concern for cerebral edema secondary to rapid correction of sodium level. The patient received 3 L normal saline and 3% saline in the ED. Sodium level increased from 112 to 132 in less than 12 hours. Morphine, Ambien discontinued. The patient remains on CIWA protocol. Objective Vital Signs Date Time Temp Pulse Resp B/P Pulse Ox O2 Delivery O2 Flow Rate FiO2 12/12/16 10:00 100 12/12/16 08:00 98.9 22 149/74 96 12/12/16 00:16 Nasal Cannula 3.00 Result Diagram: 12/12/16 0336 12/12/16 1043 Imaging Last 24 hours Impressions Chest X-Ray 12/11/162038 Signed Impressions: Service Date/Time: Sunday, December 11, 2016 20:53 - CONCLUSION: Mild cardiac silhouette enlargement and mild pulmonary vascular congestion. Morteza Zamora MD Objective Remarks GENERAL: Obese male , lethargic responding appropriately to questions. SKIN: Warm and dry. Ecchymotic bruising bilateral forearms notice secondary to fall. HEAD: Normocephalic. EYES: No scleral icterus. No injection or drainage. NECK: Supple, trachea midline. No JVD or lymphadenopathy. CARDIOVASCULAR: Regular rate and rhythm without murmurs, gallops, or rubs. RESPIRATORY: Breath sounds equal bilaterally. No accessory muscle use. Nasal cannula 3 L/m GASTROINTESTINAL: Abdomen soft, protuberant non-tender, nondistended. MUSCULOSKELETAL: No cyanosis, or edema. BACK: Nontender without obvious deformity. No CVA tenderness. EXTREMITIES: No clubbing cyanosis or edema, multiple bruises. Urinary Catheter: Yes Castillo insert reason: Measure Accurate Output Date of Insertion: Dec 11, 2016 A/P Assessment and Plan Seizure - Underlying severe hyponatremia - Possible alcohol withdrawal - Ativan when necessary - Monitor for withdrawal - [facility] protocol - 12/11 CT brain normal exam, no skull fracture Hyponatremia - Most likely chronic due to alcohol abuse - 3% sodium chloride initiated in the ED due to neurological symptomatology -Rapid correction of sodium, currently 132. Change IV fluids LR - Sodium level every 4 hours -Monitor for change in neurological status, and for cerebral edema -discontinue morphine, and Ambien Polyuria -Currently 1 L/hour urinary output the last 4 hours, is likely secondary to osmotic diuretic, will closely monitor -Maintain urine sodium, urine osmole, TSH, ACTH, lipid panel and cortisol levels -Range IV fluids to LR 84 cc/hour Alcohol abuse Anxiety disorder - Monitor for withdrawal - CIWA protocol and medications - Seizure precautions Lactic acidosis - Due to seizure - Aggressive IV fluid hydration - Monitor trend Rhabdomyolysis -Secondary to seizure, creatinine kinase 1587 -Continue hydration with LR -Monitor serial creatinine kinase levels Tobacco abuse -Smoking cessation counseling -Nicotine patch 7 days DVT GI prophylaxis - Teds SCDs subcutaneous heparin - IV Protonix Discussed with patient and SWATCH CHECKER at bedside. Critical Care: Level 3 Physician Kelsie Mixon MD Dec 12, 2016 12:01
[2016-12-12] MEDS: LORazepam 2 MG/ML VIAL IV PUSH PRN ×3 (13:41→21:25)
[2016-12-12 14:15] LABS: HDL CHOLESTEROL 88.1 MG/DL (40.0-60.0)
[2016-12-12 14:28] LABS: CKMB 6.3 NG/ML (0.5-3.6)
[2016-12-12] MEDS: chlordiazePOXIDE 25 MG CAP PO SCH ×2 (15:22→17:16)
[2016-12-12] MEDS ORDERED: MIDAZOLAM HCL 2 MG/2 ML VIAL IV PUSH ONE (15:30)
--- NOTE | 2016-12-12 18:37 | MG ---
cc: AALIYAH LOUIS M.D. Lab No: [id number] Date: Age: 66 Sex: M Race: REFERRING PHYSICIAN: [place]. ROOM: [id number]. With photic stimulation. Awake, drowsy asleep study. CT is normal. He is a 66-year-old male with anxiety, had a witnessed seizure x2 and 4 mg of Ativan was given. Postictal combative. Also history of heart disease, COPD, atrial fibrillation, alcoholism, cardiac catheterization, anxiety. He has an implantable device in his back. He also has rods and screws. Bypass surgery. Medicines are Protonix. DESCRIPTION OF RECORD: Quite a bit of muscle movement artifact but overall the patient has 5 to 5.5 hertz with 20 to 40 microvolts. Background noted to be snoring. The patient continues to wake up, fall asleep, start snoring again. There is a lot of artifact. Photic stimulation - there is a posterior driving response. IMPRESSION: Mild distal background may be due to somnolence, medicine effect or encephalopathy but there is no evidence of epileptiform features. Clinical correlation. MD SPARKLE Ashby/KONRAD /3:58 PM /6:34 PM
[2016-12-12] MEDS ORDERED: PILL SPLITTER OTHER PRN (23:00)
[2016-12-12] MEDS: METOPROLOL TARTRATE 25 MG TAB PO SCH (23:13)
[2016-12-13] VITALS (12 sets, daily range): BP systolic 114–157; BP diastolic 66–94; PULSE 80–109; RESP 17–30; TEMP 98–98.7; O2SAT 88–97
[2016-12-13] MEDS: CHLORHEXIDINE GLUCONATE 2 % 1 PACK (2 CLOTHS) TOP SCH (04:00)
[2016-12-13] MEDS: DEXT 5%-NACL 0.45% 1000 ML INJ 1,000 ML IV SCH (05:20)
[2016-12-13 05:40] LABS: HEMATOCRIT 30.8 % (39.0-51.0); MEAN CELL VOLUME 89.6 FL (80.0-100.0); MEAN CORPUSCULAR HEMOGLOBIN 30.3 PG (27.0-34.0); MEAN CORPUSCULAR HGB CONC 33.8 % (32.0-36.0); PLATELET COUNT 160 TH/MM3 (150-450); RED BLOOD COUNT 3.44 MIL/MM3 (4.50-5.90); RED CELL DISTRIBUTION WIDTH 14.4 % (11.6-17.2); REVIEW FLAG FINAL; WHITE BLOOD COUNT 8.6 TH/MM3 (4.0-11.0)
[2016-12-13 06:21] LABS: MAGNESIUM 2.3 MG/DL (1.5-2.5); POTASSIUM 3.5 MEQ/L (3.5-5.1)
[2016-12-13] MEDS: PANTOPRAZOLE SODIUM 40 MG VIAL IV SCH (07:44)
[2016-12-13] MEDS: METOPROLOL TARTRATE 25 MG TAB PO SCH ×2 (07:45→20:58)
[2016-12-13] MEDS: SODIUM CHLORIDE 0.9% FLUSH 10 ML FLUSH SCH ×2 (07:45→20:58)
[2016-12-13] MEDS: DILTIAZEM HCL 30 MG TAB PO SCH ×4 (07:46→20:58)
[2016-12-13] MEDS: DOCUSATE SODIUM 50 MG/SENNA 8.6 MG TAB PO SCH ×2 (07:46→20:58)
[2016-12-13] MEDS: chlordiazePOXIDE 25 MG CAP PO SCH ×3 (07:46→17:04)
[2016-12-13] MEDS: LORazepam 2 MG/ML VIAL IV PUSH PRN ×7 (07:59→22:50)
--- NOTE | 2016-12-13 09:38 | HHI.CCPN ---
Subjective Remarks/Hospital Course 66-year-old male with history of CAD, [place] 2, hypertension, COPD, A. fib on digoxin, alcoholism per record, presents to the emergency department for evaluation. Patient allegedly contacted a friend feeling is that he is having anxiety attack. Patient then had a witnessed seizure and another one in route witnessed by [facility]. Abrasion was given 4 mg of Ativan. While postictal, he was combative with [facility] staff. Patient is a poor historian, answers yes when asked if he drinks alcohol regularly and answered no when asked if he has been drinking today. Patient says no when asked if he is having any pain. Patient has obvious bite to the tongue. No apparent stool or bladder incontinence. Subjective: 12/12: Patient has been lethargic all morning, polyuria. Approximately 1 L/hour over the last 4 hours diuresis. Hyponatremia lab workup initiated. This likely due to 3% normal saline instillation in the ED, an osmotic diuresis. Neurological monitoring, hourly. Concern for cerebral edema secondary to rapid correction of sodium level. The patient received 3 L normal saline and 3% saline in the ED. Sodium level increased from 112 to 132 in less than 12 hours. Morphine, Ambien discontinued. The patient remains on CIWA protocol. 12/13: Mobilization of fluid urine output decrease to 50-60 cc/hour. Patient with repeated episodes of agitation, Librium was added scheduled dosing TID. Overnight the patient continued to have elevation in heart rate continues to be in A. fib, Cardizem and metoprolol was added. 12-lead EKG to be obtained today. The patient is alert and oriented appropriately responsive required 2 mg of Ativan over the last 12 hours. EEG revealed no seizure activity. Objective Vital Signs Date Time Temp Pulse Resp B/P Pulse Ox O2 Delivery O2 Flow Rate FiO2 12/13/16 06:00 92 12/13/16 04:00 98.6 30 157/91 97 12/12/16 00:16 Nasal Cannula 3.00 Intake and Output 12/12/16 12/12/16 12/13/16 08:00 16:00 00:00 Intake Total 2582 ml 1016 ml 1191 ml Output Total 3750 ml 2650 ml 1150 ml Balance -1168 ml -1634 ml 41 ml Result Diagram: 12/13/16 0457 12/13/16 0457 Imaging Last 24 hours Impressions Chest X-Ray 12/11/162038 Signed Impressions: Service Date/Time: Sunday, December 11, 2016 20:53 - CONCLUSION: Mild cardiac silhouette enlargement and mild pulmonary vascular congestion. Morteza Zamora MD Objective Remarks GENERAL: Obese male , awake, alert and responsive SKIN: Warm and dry. Ecchymotic bruising bilateral forearms notice secondary to fall. HEAD: Normocephalic. EYES: No scleral icterus. No injection or drainage. NECK: Supple, trachea midline. No JVD or lymphadenopathy. CARDIOVASCULAR: Regular rate and irregular rhythm without murmurs, gallops, or rubs. RESPIRATORY: Breath sounds equal bilaterally. No accessory muscle use. Nasal cannula 3 L/m GASTROINTESTINAL: Abdomen soft, protuberant non-tender, nondistended. MUSCULOSKELETAL: No cyanosis, or edema. BACK: Nontender without obvious deformity. No CVA tenderness. EXTREMITIES: No clubbing cyanosis or edema, multiple bruises. Date of Insertion: Dec 11, 2016 A/P Assessment and Plan Seizure - Underlying severe hyponatremia - Possible alcohol withdrawal - Ativan when necessary - Monitor for withdrawal - [facility] protocol - 12/11 CT brain normal exam, no skull fracture Hyponatremia-resolved - Most likely chronic due to alcohol abuse - 3% sodium chloride initiated in the ED due to neurological symptomatology -Rapid correction of sodium, currently 132. Continue IV fluids LR at 84 cc an hour - Sodium level every 4 hours-this a.m. 136 -Monitor for change in neurological status, and for cerebral edema -discontinue morphine, and Ambien Polyuria -Currently 1 L/hour urinary output the last 4 hours, is likely secondary to osmotic diuretic, will closely monitor -Random cortisol within normal limits 7.4 -Continue IV fluids to LR 84 cc/hour Alcohol abuse Anxiety disorder - Monitor for withdrawal -Librium 25 mg 3 times a day - [facility] protocol and medications - Seizure precautions Lactic acidosis-resolved - Due to seizure - Monitor trend Rhabdomyolysis -Secondary to seizure, creatinine kinase 1587 -Continue hydration with LR -Monitor serial creatinine kinase levels Tobacco abuse -Smoking cessation counseling -Nicotine patch 7 days DVT GI prophylaxis - Teds SCDs subcutaneous heparin - IV Protonix Discussed with patient and SOFTWARE BUILD ENGINEER at bedside. Critical Care: Level 2. And [address] [facility] in a.m. Physician Kelsie Mixon MD Dec 13, 2016 09:38
[2016-12-13] MEDS: NICOTINE 7 MG/24 HR PATCH T-DERMAL SCH (10:14)
[2016-12-13] MEDS: LACTATED RINGER'S 1000 ML INJ 1,000 ML IV SCH ×2 (11:08→20:58)
--- NOTE | 2016-12-13 12:07 | EKG ---
Date Performed: 12/13/2016 Time Performed: 10:23:14 PTAGE: 66 years EKG: ATRIAL FIBRILLATION ABNORMAL RHYTHM ECG PREVIOUS TRACING : 08/25/2014 19.51 Compared to the previous EKG T-wave abnormalities are less prominent DOCTOR: Jose G Jensen Interpretating Date/Time 12/13/2016 12:06:11
[2016-12-14] VITALS (14 sets, daily range): BP systolic 131–185; BP diastolic 71–100; PULSE 83–103; RESP 18–27; TEMP 98.4–99.1; O2SAT 93–96
[2016-12-14] MEDS: LORazepam 2 MG/ML VIAL IV PUSH PRN ×4 (02:11→23:20)
[2016-12-14] MEDS: CHLORHEXIDINE GLUCONATE 2 % 1 PACK (2 CLOTHS) TOP SCH (04:00)
[2016-12-14] MEDS ORDERED: LABETALOL HCL 100 MG/20 ML VIAL IV PUSH PRN (04:15)
[2016-12-14] MEDS: hydrALAZINE HCL 20 MG/ML VIAL IV PUSH PRN ×3 (04:26→17:33)
[2016-12-14 06:25] LABS: HEMATOCRIT 31.5 % (39.0-51.0); MEAN CELL VOLUME 91.4 FL (80.0-100.0); MEAN CORPUSCULAR HEMOGLOBIN 29.5 PG (27.0-34.0); MEAN CORPUSCULAR HGB CONC 32.3 % (32.0-36.0); PLATELET COUNT 156 TH/MM3 (150-450); RED BLOOD COUNT 3.44 MIL/MM3 (4.50-5.90); RED CELL DISTRIBUTION WIDTH 14.7 % (11.6-17.2); REVIEW FLAG FINAL; WHITE BLOOD COUNT 9.2 TH/MM3 (4.0-11.0)
[2016-12-14 06:54] LABS: BICARBONATE 27.7 MEQ/L (21.0-32.0); POTASSIUM 3.7 MEQ/L (3.5-5.1)
[2016-12-14] MEDS: PANTOPRAZOLE SODIUM 40 MG VIAL IV SCH (07:30)
[2016-12-14] MEDS: METOPROLOL TARTRATE 25 MG TAB PO SCH ×2 (07:30→20:26)
[2016-12-14] MEDS: chlordiazePOXIDE 25 MG CAP PO SCH ×3 (07:31→17:30)
[2016-12-14] MEDS: DOCUSATE SODIUM 50 MG/SENNA 8.6 MG TAB PO SCH ×2 (07:31→20:26)
[2016-12-14] MEDS: DILTIAZEM HCL 30 MG TAB PO SCH ×4 (07:35→20:26)
[2016-12-14] MEDS: NICOTINE 7 MG/24 HR PATCH T-DERMAL SCH (07:35)
[2016-12-14] MEDS: SODIUM CHLORIDE 0.9% FLUSH 10 ML FLUSH SCH ×2 (07:36→21:06)
[2016-12-14] MEDS: REMOVE OLD PATCH T-DERMAL SCH (07:46)
[2016-12-14] MEDS: LACTATED RINGER'S 1000 ML INJ 1,000 ML IV SCH (07:47)
[2016-12-14] MEDS: RESP: ALBUTEROL 2.5 MG/IPRATROPIUM 0.5 MG NEB (PRN) INH ×2 (08:44→20:38)
--- NOTE | 2016-12-14 13:50 | HHI.PR ---
Subjective Remarks Consulted by critical care medicine for transfer care and medical management. Chart reviewed. Discussed with RN. Patient lethargic easily arousable. Patient received a total of 20 mg of Ativan yesterday secondary to agitation currently on soft restraints of the upper extremities. Objective Vitals Vital Signs Date Time Temp Pulse Resp B/P Pulse Ox O2 Delivery O2 Flow Rate FiO2 12/14/16 12:00 100 12/14/16 12:00 98.6 100 22 160/93 93 12/14/16 10:00 91 12/14/16 08:45 93 Nasal Cannula 4.00 12/14/16 08:00 83 12/14/16 08:00 98.8 83 22 151/78 95 12/14/16 06:00 103 12/14/16 04:00 89 12/14/16 04:00 98.4 89 26 185/100 96 12/14/16 02:00 83 12/14/16 00:00 98.5 83 20 131/72 94 12/14/16 00:00 83 12/13/16 22:00 80 12/13/16 20:00 86 12/13/16 20:00 98.7 86 20 114/68 88 12/13/16 18:00 86 12/13/16 16:00 87 12/13/16 16:00 98.6 87 17 133/69 97 12/13/16 14:00 91 I/O 12/13/16 12/13/16 12/13/16 12/14/16 12/14/16 12/14/16 07:00 15:00 23:00 07:00 15:00 23:00 Intake Total 612 ml 1094 ml 480 ml 1369 ml Output Total 675 ml 500 ml 150 ml 600 ml Balance -63 ml 594 ml 330 ml 769 ml Intake Oral 480 ml 480 ml IV Total 612 ml 614 ml 1369 ml Output Urine Total 675 ml 500 ml 150 ml 600 ml # Bowel Movements 0 0 Result Diagram: 12/14/1652912/14/16529 Imaging Last Impressions Chest X-Ray 12/11/162038 Signed Impressions: Service Date/Time: Sunday, December 11, 2016 20:53 - CONCLUSION: Mild cardiac silhouette enlargement and mild pulmonary vascular congestion. Morteza Zamora MD Maxillofacial CT 12/11/16 0000 Signed Impressions: Service Date/Time: Monday, December 12, 2016 00:13 - CONCLUSION: 1. No acute findings. Exam degraded by some motion artifact. Robe Lester MD Head CT 12/11/16 0000 Signed Impressions: Service Date/Time: Monday, December 12, 2016 00:11 - CONCLUSION: Normal examination for a patient of this age. Robe Lester MD Objective Remarks GENERAL: Obese male , well-nourished in no distress. SKIN: Warm and dry. Ecchymotic bruising bilateral forearms secondary to fall. HEAD: Normocephalic. EYES: No scleral icterus. No injection or drainage. NECK: Supple, trachea midline. No JVD or lymphadenopathy. CARDIOVASCULAR: Regular rate and irregular rhythm without murmurs, gallops, or rubs. RESPIRATORY: Breath sounds equal bilaterally. No accessory muscle use. Nasal cannula 3 L/m GASTROINTESTINAL: Abdomen soft, protuberant non-tender, nondistended. MUSCULOSKELETAL: No cyanosis, or edema. BACK: Nontender without obvious deformity. No CVA tenderness. EXTREMITIES: No clubbing cyanosis or edema, multiple bruises. Neuro: Lethargic but easily arousable. Moving all extremities Procedures none Date of Insertion: Dec 11, 2016 A/P Problem List: (1) Alcoholism ICD Code: F10.20 Status: Acute Assessment and Plan Seizure. No recurrence - Underlying severe hyponatremia - Possible alcohol withdrawal - Ativan when necessary - Monitor for withdrawal - [facility] protocol - 12/11 CT brain normal exam, no skull fracture Hyponatremia-resolved - Most likely chronic due to alcohol abuse - 3% sodium chloride initiated in the ED due to neurological symptomatology - Rapid correction of sodium, currently 138. Continue IV fluids LR at 84 cc an hour - Monitor for change in neurological status, and for cerebral edema - discontinue morphine, and Ambien Polyuria -likely secondary to osmotic diuretic. Improved will closely monitor -Random cortisol within normal limits 7.4 -Continue IV fluids to LR 84 cc/hour Alcohol abuse Anxiety disorder - Monitor for withdrawal - Librium 25 mg 3 times a day old for sedation - CIKY protocol and medications - Seizure precautions Lactic acidosis-resolved - Due to seizure - Monitor trend Rhabdomyolysis -Secondary to seizure, creatinine kinase 177 -Continue hydration with LR Tobacco abuse -Smoking cessation counseling -Nicotine patch 7 days Gram-positive cocci in 1 out of 4 bottles likely contamination. Repeat blood cultures in the morning. Monitor Chronic medical conditions coronary artery disease, hypertension, COPD, A. fib and congestive heart failure. Continue outpatient medications as appropriate. DVT GI prophylaxis - Teds SCDs subcutaneous heparin - Protonix Discontinue Castillo catheter. Condom catheter as needed Discharge Planning Keep patient in the ICU for close monitoring Martin Davis MD Dec 14, 2016 13:50
[2016-12-15] VITALS (20 sets, daily range): BP systolic 119–173; BP diastolic 59–95; PULSE 80–109; RESP 0–30; TEMP 98.6–99.1; O2SAT 82–97
[2016-12-15] MEDS: LACTATED RINGER'S 1000 ML INJ 1,000 ML IV SCH (02:10)
[2016-12-15] MEDS: LORazepam 2 MG/ML VIAL IV PUSH PRN ×3 (02:32→21:19)
[2016-12-15] MEDS: CHLORHEXIDINE GLUCONATE 2 % 1 PACK (2 CLOTHS) TOP SCH (04:00)
[2016-12-15 04:31] LABS: MAGNESIUM 1.9 MG/DL (1.5-2.5); POTASSIUM 4.1 MEQ/L (3.5-5.1)
[2016-12-15] MEDS: REMOVE OLD PATCH T-DERMAL SCH (08:13)
[2016-12-15] MEDS: DOCUSATE SODIUM 50 MG/SENNA 8.6 MG TAB PO SCH ×2 (08:13→20:45)
[2016-12-15] MEDS: chlordiazePOXIDE 25 MG CAP PO SCH (08:13)
[2016-12-15] MEDS: PANTOPRAZOLE SOD 40 MG DELAYED RELEASE TAB PO SCH (08:13)
[2016-12-15] MEDS: SODIUM CHLORIDE 0.9% FLUSH 10 ML FLUSH SCH ×2 (08:13→20:45)
[2016-12-15] MEDS: NICOTINE 7 MG/24 HR PATCH T-DERMAL SCH (08:13)
[2016-12-15] MEDS: DILTIAZEM HCL 30 MG TAB PO SCH ×4 (08:13→20:45)
[2016-12-15] MEDS: METOPROLOL TARTRATE 25 MG TAB PO SCH ×2 (08:13→20:45)
--- NOTE | 2016-12-15 12:50 | MB ---
cc: SALLY NAGEL MD DATE OF CONSULTATION 12/15/[address] Davis REASON FOR CONSULTATION Positive blood cultures, Strep viridans bacteremia. HISTORY OF PRESENT ILLNESS This is a 66-year-old white male who presented to the emergency department with seizures. The patient was brought to the emergency department by [facility]. He was noted to be a heavy user of alcohol and seizures were felt to be alcohol-related. In the emergency department, his heart rate was 101.4 and temperature was 100.1 and the white count was 20.5. The patient was admitted to the hospital and managed in the intensive care unit. He no longer has seizure activity. The white blood cell count improved to 12.5 the day after admission on 12/12. The patient had temperature of 100.1 degrees in the emergency department and after admission his temperature improved. Blood cultures were taken on admission on 12/11 and one sets of the blood culture has two different bacteria in the anaerobic bottle including viridans Strep group and Staph species coagulase negative. The other three bottles have no growth. The white blood cell count normalized on 12/13 and remained normal. The patient is in restraints. He has been noted to be agitated. He was somewhat lethargic this morning and remains lethargic. When asked questions, he answers in a whisper and I am unable to get any meaningful information from him. He asked the questions why he is in the hospital. Urinalysis on admission was unremarkable. Chest x-ray showed mild cardiac silhouette enlargement and mild pulmonary vascular congestion. The patient also had markedly elevated CPK on admission. PAST MEDICAL HISTORY 1. COPD 2. Alcohol abuse 3. Coronary artery disease 4. History of congestive heart failure 5. Atrial fibrillation 6. Hypertension 7. History of coronary bypass graft surgery 8. Carpal tunnel surgery ALLERGIES LISINOPRIL, SIMVASTATIN MEDICATIONS 1. Librium 2. Lopressor 3. Cardizem 4. Nicotine patch 5. Protonix 6. Ativan p.r.n. SOCIAL HISTORY Tobacco use in the past, patient uses a nicotine patch. Daily alcohol use. No illicit drugs. FAMILY HISTORY Unable to obtain. REVIEW OF SYSTEMS Unable to obtain because of the patient's lethargy and difficulty responding to questions. PHYSICAL EXAMINATION This is a well-developed male who is lethargic. He is in no acute distress. VITAL SIGNS: Include temperature 98.7, blood pressure 160/82, heart rate 85. HEENT: The head is atraumatic. Extraocular movements appear grossly intact. No icterus. Oropharynx, dry oral mucosa. No thrush. NECK: Supple without adenopathy. LUNGS: Decreased breath sounds throughout. The patient is using accessory muscles for breathing. HEART: Irregular rate and rhythm. Distant S1 and S2. ABDOMEN: Diminished bowel sounds, distended, soft, no tenderness appreciated. RECTAL: Not performed. EXTREMITIES: No clubbing or cyanosis. The patient has ecchymosis below the left knee and on the left calf. He has no edema. SKIN: No diffuse rash. NEUROLOGIC: Unable to fully assess. The patient is lethargic. PSYCH: Unable to assess. LABORATORY DATA WBC 9.2, platelet count 156, hemoglobin 10.2. Creatinine 0.61, BUN 8, sodium 137. IMPRESSION Bacteremia due to Strep viridans and Staph coag negative in 1/4 bottles of blood cultures from 12/11/2016. The patient at the time of the blood draw had a low grade fever and the white count was elevated. However, temperature quickly responded and the white blood cell count normalized and he has not been on any antibiotics since 12/12/2015. I think the positive blood culture is very likely pseudo-bacteriemia. The patient does not appear to be septic. I recommend that we continue to monitor the new blood cultures which have been obtained today and not treat the patient with antibiotics, but monitor clinical status and lab data and follow the blood cultures to determine if he has persistence of strep viridans that would necessitate antibiotic treatment. Thank you for this consultation. I will follow the patient's progress and cultures and make further recommendations on followup if necessary. Sally Nagel MD FD/JESIKA /12:15 PM /12:40 PM GINA
[2016-12-15] MEDS ORDERED: RESP: ALBUTEROL 2.5 MG/3 ML NEB (PRN) NEB (13:00)
--- NOTE | 2016-12-15 13:08 | HHI.PR ---
Subjective Remarks Follow-up alcohol withdrawal. He required Ativan overnight and this morning in addition to Librium. He is still lethargic speech clear. Breathing seems to be slightly labored tachypneic on nasal cannula. Discussed with RN Objective Vitals Vital Signs Date Time Temp Pulse Resp B/P Pulse Ox O2 Delivery O2 Flow Rate FiO2 12/15/16 12:00 98.7 90 29 160/82 95 12/15/16 12:00 90 12/15/16 11:00 81 21 148/69 95 12/15/16 10:45 95 Nasal Cannula 3.00 12/15/16 10:00 80 20 146/76 95 12/15/16 10:00 80 12/15/16 09:00 87 26 147/88 86 12/15/16 08:00 86 12/15/16 08:00 99.0 94 30 173/95 94 12/15/16 07:00 90 21 127/78 97 12/15/16 06:00 109 12/15/16 04:00 99.1 97 23 127/78 92 12/15/16 04:00 97 12/15/16 02:00 80 12/15/16 00:00 98.6 90 29 150/72 94 12/15/16 00:00 90 12/14/16 22:00 84 12/14/16 20:41 96 Nasal Cannula 4.00 12/14/16 20:00 100 12/14/16 20:00 99.1 96 27 151/71 94 12/14/16 18:00 98 12/14/16 16:00 98.4 102 18 155/74 94 12/14/16 16:00 102 12/14/16 14:00 98 I/O 12/14/16 12/14/16 12/14/16 12/15/16 12/15/16 12/15/16 07:00 15:00 23:00 07:00 15:00 23:00 Intake Total 1369 ml 917 ml 480 ml 580 ml Output Total 600 ml 550 ml 230 ml 200 ml Balance 769 ml 367 ml 250 ml 380 ml Intake Oral 240 ml IV Total 1369 ml 677 ml 480 ml 580 ml Output Urine Total 600 ml 550 ml 230 ml 200 ml # Voids 2 # Bowel Movements 0 1 0 0 Result Diagram: 12/14/16 0530 12/15/16 0330 Imaging Last Impressions Chest X-Ray 12/11/162038 Signed Impressions: Service Date/Time: Sunday, December 11, 2016 20:53 - CONCLUSION: Mild cardiac silhouette enlargement and mild pulmonary vascular congestion. Morteza Zamora MD Maxillofacial CT 12/11/16 0000 Signed Impressions: Service Date/Time: Monday, December 12, 2016 00:13 - CONCLUSION: 1. No acute findings. Exam degraded by some motion artifact. Robe Lester MD Head CT 12/11/16 0000 Signed Impressions: Service Date/Time: Monday, December 12, 2016 00:11 - CONCLUSION: Normal examination for a patient of this age. Robe Lester MD Objective Remarks GENERAL: Obese male , well-nourished in mild respiratory distress. SKIN: Warm and dry. Ecchymotic bruising bilateral forearms secondary to fall. HEAD: Normocephalic. EYES: No scleral icterus. No injection or drainage. NECK: Supple, trachea midline. No JVD or lymphadenopathy. CARDIOVASCULAR: Regular rate and irregular rhythm without murmurs, gallops, or rubs. RESPIRATORY: Breath sounds equal bilaterally. No accessory muscle use. Nasal cannula 3 L/m. Tachypneic with expiratory wheezes and rhonchi GASTROINTESTINAL: Abdomen soft, protuberant non-tender, nondistended. MUSCULOSKELETAL: No cyanosis, or edema. BACK: Nontender without obvious deformity. No CVA tenderness. EXTREMITIES: No clubbing cyanosis or edema, multiple bruises. Neuro: Lethargic but easily arousable. Moving all extremities Procedures none Date of Insertion: Dec 11, 2016 A/P Problem List: (1) Alcoholism ICD Code: F10.20 Status: Acute Assessment and Plan Seizure. No recurrence - Underlying severe hyponatremia - Possible alcohol withdrawal - Ativan when necessary - Monitor for withdrawal - [facility] protocol - 12/11 CT brain normal exam, no skull fracture Hyponatremia-resolved - Most likely chronic due to alcohol abuse - 3% sodium chloride initiated in the ED due to neurological symptomatology - Rapid correction of sodium, currently 138. Continue IV fluids LR at 60 cc an hour - Monitor for change in neurological status, and for cerebral edema - discontinue morphine, and Ambien Polyuria -likely secondary to osmotic diuretic. Resolved -Random cortisol within normal limits 7.4 -Continue IV fluids to LR 60 cc/hour Alcohol abuse Anxiety disorder - Monitor for withdrawal - Discontinue Librium 25 mg secondary to sedation - CIWA protocol and medications - Seizure precautions Lactic acidosis-resolved - Due to seizure - Monitor trend Rhabdomyolysis -Secondary to seizure, creatinine kinase 177 -Continue hydration with LR Tobacco abuse -Smoking cessation counseling -Nicotine patch 7 days Viridans and coag-negative in 1 out of 4 bottles likely contamination. Repeat blood cultures drawn this morning. Monitor COPD exacerbation suspect aspiration. Follow-up speech therapy. Aspiration precautions. Start scheduled nebulizations and IV steroids. Obtain repeat chest x-ray Chronic medical conditions coronary artery disease, hypertension, A. fib and congestive heart failure. Continue outpatient medications as appropriate. DVT GI prophylaxis - Teds SCDs subcutaneous heparin - Protonix Discontinue Castillo catheter. Condom catheter as needed Discharge Planning Keep patient in the ICU for close monitoring high likelihood of respiratory failure Martin Davis MD Dec 15, 2016 13:08
[2016-12-15] MEDS: RESP: ALBUTEROL 2.5 MG/IPRATROPIUM 0.5 MG NEB (PRN) INH ×2 (13:37→21:34)
[2016-12-15] MEDS: methylPREDNISolone SOD SUCC 40 MG/1 ML VIAL IV PUSH SCH ×3 (13:39→23:07)
--- NOTE | 2016-12-15 14:03 | RADRPT ---
EXAM DATE/TIME: 12/15/2016 13:18 [place] COMPARISON: CHEST SINGLE AP, December 11, 2016, 20:53. INDICATIONS : Cough and short of breath. MEDICAL HISTORY : Myocardial infarction. Cardiovascular disease. Chronic obstructive pulmonary disease. SURGICAL HISTORY : CABG. ENCOUNTER: Subsequent ACUITY: 2 days PAIN SCORE: Non-responsive. LOCATION: Bilateral chest FINDINGS: The cardiac silhouette is enlarged with indistinct central pulmonary vessels. Continued interstitial prominence bilaterally with subtle patchy airspace disease in the lower lobes bilaterally. Mild eleva tion of the left hemidiaphragm, unchanged from prior. Remainder of the exam is unchanged. CONCLUSION: 1. Cardiomegaly with mild pulmonary vascular congestion. Rudi Boyce MD on December 15, 2016 at 13:59 Board Certified Radiologist. This report was verified electronically.
[2016-12-15] MEDS ORDERED: FUROSEMIDE 20 MG/2 ML VIAL IV PUSH ONE (16:45)
[2016-12-15] MEDS ORDERED: LACTATED RINGER'S 1000 ML INJ 1,000 ML IV SCH (17:00)
[2016-12-16] VITALS (21 sets, daily range): BP systolic 109–185; BP diastolic 60–93; PULSE 82–143; RESP 20–33; TEMP 97.9–98.7; O2SAT 91–96
[2016-12-16] MEDS: CHLORHEXIDINE GLUCONATE 2 % 1 PACK (2 CLOTHS) TOP SCH (04:19)
[2016-12-16] MEDS: methylPREDNISolone SOD SUCC 40 MG/1 ML VIAL IV PUSH SCH ×2 (04:19→13:24)
[2016-12-16] MEDS: LORazepam 2 MG/ML VIAL IV PUSH PRN ×2 (04:20→06:21)
[2016-12-16 04:28] LABS: BICARBONATE 32.3 MEQ/L (21.0-32.0); POTASSIUM 3.7 MEQ/L (3.5-5.1)
--- NOTE | 2016-12-16 08:16 | HHI.PR ---
Subjective Remarks Follow-up COPD exacerbation and fluid overload. Today he is awake and oriented 3. Complaining of chronic lower back pain states she is on narcotics. Discussed with RN to UPDATE medication reconciliation form. He denies shortness of breath but has positive fluid balance. Tolerating by mouth. Objective Vitals Vital Signs Date Time Temp Pulse Resp B/P Pulse Ox O2 Delivery O2 Flow Rate FiO2 12/16/16 06:00 92 12/16/16 04:00 97.9 91 25 168/93 93 12/16/16 04:00 91 12/16/16 02:00 93 12/16/16 00:00 82 12/16/16 00:00 98.7 82 20 128/68 91 12/15/16 22:00 88 12/15/16 21:03 96 Nasal Cannula 4.00 12/15/16 20:00 98.9 92 21 144/66 90 12/15/16 20:00 92 12/15/16 19:00 97 Nasal Cannula 4.00 12/15/16 18:00 83 0 141/75 93 12/15/16 18:00 83 12/15/16 17:00 84 21 143/74 93 12/15/16 16:00 82 12/15/16 16:00 98.8 82 21 142/72 93 12/15/16 15:24 90 Nasal Cannula 4.00 12/15/16 15:00 84 22 119/59 90 12/15/16 14:00 88 26 145/85 82 12/15/16 14:00 88 12/15/16 13:00 90 28 157/73 95 12/15/16 12:00 98.7 90 29 160/82 95 12/15/16 12:00 90 12/15/16 11:00 81 21 148/69 95 12/15/16 10:45 95 Nasal Cannula 3.00 12/15/16 10:00 80 20 146/76 95 12/15/16 10:00 80 12/15/16 09:00 87 26 147/88 86 I/O 12/15/16 12/15/16 12/15/16 12/16/16 12/16/16 12/16/16 07:00 15:00 23:00 07:00 15:00 23:00 Intake Total 580 ml 548 ml 829 ml 618 ml Output Total 200 ml 30 ml 375 ml 500 ml Balance 380 ml 518 ml 454 ml 118 ml Intake Oral 50 ml 480 ml 240 ml IV Total 580 ml 498 ml 349 ml 378 ml Output Urine Total 200 ml 30 ml 375 ml 500 ml Stool Total 0 ml # Voids 2 # Bowel Movements 0 0 0 0 Result Diagram: 12/14/16 0530 12/16/16 0346 Imaging Last Impressions Chest X-Ray 12/15/16 0000 Signed Impressions: Service Date/Time: Thursday, December 15, 2016 13:18 - CONCLUSION: 1. Cardiomegaly with mild pulmonary vascular congestion. Rudi Boyce MD Maxillofacial CT 12/11/16 0000 Signed Impressions: Service Date/Time: Monday, December 12, 2016 00:13 - CONCLUSION: 1. No acute findings. Exam degraded by some motion artifact. Robe Lester MD Head CT 12/11/16 0000 Signed Impressions: Service Date/Time: Monday, December 12, 2016 00:11 - CONCLUSION: Normal examination for a patient of this age. Robe Lester MD Objective Remarks GENERAL: Obese male , well-nourished in no distress SKIN: Warm and dry. Ecchymotic bruising bilateral forearms secondary to fall. HEAD: Normocephalic. EYES: No scleral icterus. No injection or drainage. NECK: Supple, trachea midline. No JVD or lymphadenopathy. CARDIOVASCULAR: Regular rate and irregular rhythm without murmurs, gallops, or rubs. RESPIRATORY: Decreased Breath sounds equal bilaterally. No accessory muscle use. Nasal cannula 3 L/m. GASTROINTESTINAL: Abdomen soft, protuberant non-tender, nondistended. MUSCULOSKELETAL: No cyanosis, or edema. BACK: Nontender without obvious deformity. No CVA tenderness. EXTREMITIES: No clubbing cyanosis or edema, multiple bruises. Neuro: Alert and oriented 3. Moving all extremities Procedures none Date of Insertion: Dec 11, 2016 A/P Problem List: (1) Alcoholism ICD Code: F10.20 Status: Acute Assessment and Plan Seizure. No recurrence - Underlying severe hyponatremia - Possible alcohol withdrawal - Ativan when necessary - Monitor for withdrawal - [facility] protocol - 12/11 CT brain normal exam, no skull fracture Hyponatremia-resolved - Most likely chronic due to alcohol abuse - 3% sodium chloride initiated in the ED due to neurological symptomatology - Discontinue LR - Monitor for change in neurological status, and for cerebral edema - discontinue morphine, and Ambien Polyuria -likely secondary to osmotic diuretic. Resolved -Random cortisol within normal limits 7.4 Alcohol abuse Anxiety disorder - Monitor for withdrawal - Discontinue Librium 25 mg secondary to sedation - CIWA protocol and medications - Seizure precautions Lactic acidosis-resolved - Due to seizure - Monitor trend Rhabdomyolysis -Secondary to seizure, creatinine kinase 177 -Continue hydration with LR Tobacco abuse -Smoking cessation counseling -Nicotine patch 7 days Viridans and coag-negative in 1 out of 4 bottles likely contamination. Repeat blood cultures negative to date. Monitor COPD exacerbation suspect aspiration. Improved speech therapy recommended mechanical soft with honey thickened liquid. Aspiration precautions. Continue nebulizations and switch IV steroids to by mouth. Chest x-ray shows edema Acute on chronic heart failure with preserved systolic function. Positive fluid balance. Discontinue IV fluid with improved oral intake. We will give another dose of IV Lasix 20 mg with potassium supplementation. Repeat BMP and magnesium in the morning. CHF education, I/O and monitor weight. Chronic medical conditions coronary artery disease, hypertension and A. fib Continue outpatient medications as appropriate, RN to update. DVT GI prophylaxis - Teds SCDs subcutaneous heparin - Protonix Discontinue Castillo catheter. Condom catheter as needed Discharge Planning May transfer to floor Martin Davis MD Dec 16, 2016 08:16
[2016-12-16] MEDS: RESP: ALBUTEROL 2.5 MG/IPRATROPIUM 0.5 MG NEB (SCH) INH ×4 (08:41→20:08)
[2016-12-16] MEDS: REMOVE OLD PATCH T-DERMAL SCH (09:00)
[2016-12-16] MEDS: DILTIAZEM HCL 30 MG TAB PO SCH ×4 (09:51→20:25)
[2016-12-16] MEDS: DOCUSATE SODIUM 50 MG/SENNA 8.6 MG TAB PO SCH ×2 (09:51→20:25)
[2016-12-16] MEDS: METOPROLOL TARTRATE 25 MG TAB PO SCH ×2 (09:51→20:24)
[2016-12-16] MEDS: PANTOPRAZOLE SOD 40 MG DELAYED RELEASE TAB PO SCH (09:51)
[2016-12-16] MEDS: NICOTINE 7 MG/24 HR PATCH T-DERMAL SCH (09:51)
[2016-12-16] MEDS: SODIUM CHLORIDE 0.9% FLUSH 10 ML FLUSH SCH ×2 (09:52→20:28)
--- NOTE | 2016-12-16 12:03 | HHI.IDPN ---
Note Infectious Disease Note Patient is more awake and lucid. Feels extremely weak. Afebrile. Presented to the emergency department with seizures. PAST MEDICAL HISTORY 1. COPD 2. Alcohol abuse 3. Coronary artery disease 4. History of congestive heart failure 5. Atrial fibrillation 6. Hypertension 7. History of coronary bypass graft surgery 8. Carpal tunnel surgery ALLERGIES LISINOPRIL, SIMVASTATIN MEDICATIONS Current Medications Medications (Trade) Dose Ordered Sig/Theron Route PRN Reason Start Time Stop Time Status Last Admin Dose Admin Sodium Chloride (NS Flush) 2 ml UNSCH PRN .XX FLUSH AFTER USING IV ACCESS 12/11/16 22:15 Sodium Chloride (NS Flush) 2 ml BID .XX 12/12/16 09:00 12/16/16 09:52 Acetaminophen (Tylenol) 650 mg Q6H PRN PO PAIN 1-10 AND/OR FEVER >101F 12/11/16 22:15 Ondansetron HCl (Zofran Inj) 4 mg Q6H PRN IV MILD NAUSEA OR VOMITING 12/11/16 22:15 Metoclopramide HCl (Reglan Inj) 10 mg Q6H PRN IV MODERATE NAUSEA OR VOMITING 12/11/16 22:15 Prochlorperazine (Compazine Supp) 25 mg Q12H PRN RECTAL NAUSEA OR VOMITING 12/11/16 22:15 Miscellaneous Information 1 Q361D XX 12/11/16 22:15 12/12/16 00:30 Chlorhexidine Gluconate (Chlorhexidine 2% Cloth) 3 pack Taper DAILY@04 TOP 12/12/16 04:00 12/08/17 03:59 12/16/16 04:19 Chlorhexidine Gluconate (Chlorhexidine 2% Cloth) 3 pack UNSCH PRN [facility] 12/11/16 22:15 Senna/Docusate Sodium (Lisa-Colace) 1 tab BID PO 12/12/16 09:00 12/16/16 09:51 Magnesium Hydroxide (Milk Of Magnesia Liq) 30 ml Q12H PRN PO MILD - MODERATE CONSTIPATION 12/11/16 22:15 Sennosides (Senokot) 17.2 mg Q12H PRN PO MODERATE - SEVERE CONSTIPATION 12/11/16 22:15 Bisacodyl (Dulcolax Supp) 10 mg DAILY PRN RECTAL SEVERE CONSITIPATION 12/11/16 22:15 Lactulose (Lactulose Liq) 30 ml DAILY PRN PO SEVERE CONSITIPATION 12/11/16 22:15 Flumazenil (Romazicon Inj) 0.2 mg Q1M PRN IV PUSH SEE LABEL COMMENTS 12/11/16 22:45 Lorazepam (Ativan) 1 mg Q4H PRN PO CIWA 8 - 10 12/11/16 22:45 Lorazepam (Ativan Inj) 1 mg Q4H PRN IV PUSH CIWA 8 - 10 12/11/16 22:45 12/14/16 21:07 Lorazepam (Ativan) 2 mg Q2H PRN PO CIWA 11-14 12/11/16 22:45 Lorazepam (Ativan Inj) 2 mg Q2H PRN IV PUSH CIWA 11-14 12/11/16 22:45 12/16/16 04:20 Lorazepam (Ativan Inj) 2 mg Q1H PRN IV PUSH CIWA 15-20 12/11/16 22:45 12/16/16 06:21 Lorazepam (Ativan Inj) 2 mg Q15M PRN IV PUSH CIWA > 20 12/11/16 22:45 Metoprolol Tartrate (Lopressor) 12.5 mg Q12HR PO 12/12/16 23:00 12/16/16 09:51 Diltiazem HCl (Cardizem) 30 mg QID PO 12/13/16 09:00 12/16/16 09:51 Miscellaneous (Pill Splitter) 1 ea UNSCH PRN OTHER SEE LABEL COMMENTS 12/12/16 23:00 Nicotine (Habitrol 7 Mg Patch.24 Hr) 1 patch DAILY T-DERMAL 12/13/16 09:45 12/21/16 09:00 12/16/16 09:51 Miscellaneous Information 1 DAILY T-DERMAL 12/14/16 09:00 12/16/16 09:00 Labetalol HCl (Trandate Inj) 10 mg Q4H PRN IV PUSH SBP>160, DBP>90 12/14/16 04:15 12/16/16 05:27 Hydralazine HCl (Apresoline Inj) 20 mg Q4H PRN IV PUSH SBP>160, DBP>90 12/14/16 04:15 12/14/16 17:33 Pantoprazole Sodium (Protonix) 40 mg DAILY PO 12/15/16 09:00 12/16/16 09:51 Methylprednisolone Sodium Succinate 40 mg 40 mg Q6HR IV PUSH 12/15/16 13:00 12/16/16 04:19 Lactated Ringer's (Lr 1000 ml Inj) 1,000 ml @ 42 mls/hr [id number] IV 12/15/16 17:00 12/15/16 16:59 IMAGING: Chest X-Ray 12/15/16 0000 Signed Impressions: Service Date/Time: Thursday, December 15, 2016 13:18 - CONCLUSION: 1. Cardiomegaly with mild pulmonary vascular congestion. Rudi Boyce MD Maxillofacial CT 12/11/16 0000 Signed Impressions: Service Date/Time: Monday, December 12, 2016 00:13 - CONCLUSION: 1. No acute findings. Exam degraded by some motion artifact. Robe Lester MD Head CT 12/11/16 0000 Signed Impressions: Service Date/Time: Monday, December 12, 2016 00:11 - CONCLUSION: Normal examination for a patient of this age. Robe Lester MD SOCIAL HISTORY Tobacco use in the past, patient uses a nicotine patch. Daily alcohol use. No illicit drugs. PHYSICAL EXAMINATION GENERAL: No acute distress. HEENT: The head is atraumatic. Extraocular movements appear grossly intact. No icterus. Oropharynx, dry oral mucosa. No thrush. NECK: Supple without adenopathy. LUNGS: She Decreased breath sounds throughout. The patient is using accessory muscles for breathing. HEART: Irregular rate and rhythm. Distant S1 and S2. ABDOMEN: Diminished bowel sounds, distended, soft, no tenderness appreciated. EXTREMITIES: No clubbing or cyanosis. No edema. SKIN: No diffuse rash. NEUROLOGIC: Non focal. PSYCH: Calm. Cooperative. IMPRESSION Bacteremia due to Strep viridans and Staph coag negative in 1/4 bottles of blood cultures from 12/11/2016. Suspect Contamination. RECOMMEND: Follow the repeat blood cultures until completion. No antibiotic treatment for previous blood culture. Patient is stable. I will sign off now. Please call if blood culture is positive. Juaquin Matson MD Dec 16, 2016 12:02
[2016-12-16] MEDS ORDERED: POTASSIUM CHLORIDE 20 MEQ CONTROLLED RELEASE TAB PO ONE (14:15)
[2016-12-16] MEDS ORDERED: FUROSEMIDE 20 MG/2 ML VIAL IV PUSH ONE (14:15)
[2016-12-16] MEDS ORDERED: GLUCAGON 1 MG/ML VIAL OTHER PRN (15:30)
[2016-12-16] MEDS ORDERED: DEXTROSE 50% IN WATER 50 ML VIAL(D50) IV PRN (15:30)
[2016-12-16] MEDS: INSULIN ASPART SUPPLEMENTAL SCALE SQ SCH ×2 (17:05→20:32)
[2016-12-16] MEDS: HEPARIN SODIUM - SQ 10,000 UNITS/ML VIAL SQ SCH (20:25)
[2016-12-16] MEDS: predniSONE 20 MG TAB PO SCH (20:27)
[2016-12-17] VITALS (9 sets, daily range): BP systolic 141–177; BP diastolic 67–84; PULSE 82–100; RESP 20–24; TEMP 98.4–98.9; O2SAT 91–95
[2016-12-17] MEDS: CHLORHEXIDINE GLUCONATE 2 % 1 PACK (2 CLOTHS) TOP SCH (03:11)
[2016-12-17] MEDS: INSULIN ASPART SUPPLEMENTAL SCALE SQ SCH ×2 (06:22→11:53)
[2016-12-17] MEDS: hydrALAZINE HCL 20 MG/ML VIAL IV PUSH PRN (06:22)
[2016-12-17] MEDS: DILTIAZEM HCL 30 MG TAB PO SCH ×2 (08:00→11:50)
[2016-12-17] MEDS: METOPROLOL TARTRATE 25 MG TAB PO SCH (08:00)
[2016-12-17] MEDS: predniSONE 20 MG TAB PO SCH (08:00)
[2016-12-17] MEDS: PANTOPRAZOLE SOD 40 MG DELAYED RELEASE TAB PO SCH (08:00)
[2016-12-17] MEDS: HEPARIN SODIUM - SQ 10,000 UNITS/ML VIAL SQ SCH (08:01)
[2016-12-17] MEDS: REMOVE OLD PATCH T-DERMAL SCH (08:01)
[2016-12-17] MEDS: NICOTINE 7 MG/24 HR PATCH T-DERMAL SCH (08:01)
--- NOTE | 2016-12-17 08:01 | HHI.DCPOC ---
Discharge Care Plan Diagnosis: (1) Alcoholism Your Health Problems Are: Difficulty with ADL Exercise Tolerance Goals to Promote Your Health * To prevent worsening of your condition and complications * To maintain your health at the optimal level Directions to Meet Your Goals Take your medications as prescribed Follow your dietary instruction Follow activity as directed Keep your appointments as scheduled Take your immunizations and boosters as scheduled If your symptoms worsen call your PCP, if no PCP go to Urgent Care Center or Emergency Room Smoking is Dangerous to Your Health. Avoid second hand smoke Call the 24-hour hour crisis hotline for domestic abuse at Martin Davis MD Dec 17, 2016 08:01
[2016-12-17] MEDS: SODIUM CHLORIDE 0.9% FLUSH 10 ML FLUSH SCH (08:02)
[2016-12-17] MEDS: DOCUSATE SODIUM 50 MG/SENNA 8.6 MG TAB PO SCH (08:02)
[2016-12-17] MEDS: RESP: ALBUTEROL 2.5 MG/IPRATROPIUM 0.5 MG NEB (SCH) INH ×2 (08:03→11:27)
--- NOTE | 2016-12-17 08:03 | HHI.PR ---
Subjective Remarks Follow-up hypoxia. Has chronic dyspnea oxygen down to 2.5 L negative fluid balance of 1300 mL. States he has quit drinking years ago but takes Ativan though UDS is negative. I think patient went into benzo withdrawal. Discussed with product management analyst Objective Vitals Vital Signs Date Time Temp Pulse Resp B/P Pulse Ox O2 Delivery O2 Flow Rate FiO2 12/17/16 06:00 84 12/17/16 04:00 98.6 84 22 177/84 95 12/17/16 04:00 95 Nasal Cannula 2.50 12/17/16 04:00 84 12/17/16 02:00 82 12/17/16 00:00 91 Nasal Cannula 2.50 12/17/16 00:00 94 12/17/16 00:00 98.5 94 23 141/67 91 12/16/16 22:00 93 12/16/16 20:08 93 Nasal Cannula 3.00 12/16/16 20:00 98.3 86 27 134/68 91 12/16/16 20:00 91 Nasal Cannula 2.50 12/16/16 20:00 86 12/16/16 18:00 91 12/16/16 16:00 94 12/16/16 16:00 98.6 98 30 109/64 92 12/16/16 16:00 92 Nasal Cannula 3.00 12/16/16 15:00 94 25 129/60 92 12/16/16 14:00 98 12/16/16 14:00 99 26 157/90 95 12/16/16 13:01 90 24 146/68 93 12/16/16 12:00 93 12/16/16 12:00 95 Nasal Cannula 3.00 12/16/16 12:00 98.7 93 27 138/86 95 12/16/16 11:01 94 32 135/75 94 12/16/16 10:04 105 30 149/74 95 12/16/16 10:00 110 12/16/16 10:00 143 33 91 12/16/16 09:00 86 24 185/87 94 12/16/16 08:43 96 Nasal Cannula 4.00 12/16/16 08:37 96 29 181/86 96 12/16/16 08:20 89 27 184/86 94 I/O 12/16/16 12/16/16 12/16/16 12/17/16 12/17/16 6/22/17 07:00 15:00 23:00 07:00 15:00 23:00 Intake Total 618 ml 737 ml 100 ml 50 ml Output Total 500 ml 325 ml 1150 ml 725 ml Balance 118 ml 412 ml -1050 ml -675 ml Intake Oral 240 ml 600 ml 100 ml 50 ml IV Total 378 ml 137 ml Output Urine Total 500 ml 325 ml 1150 ml 725 ml # Bowel Movements 0 1 Result Diagram: 12/14/16 0530 12/16/16 0346 Objective Remarks GENERAL: Obese male , well-nourished in no distress SKIN: Warm and dry. Ecchymotic bruising bilateral forearms secondary to fall. HEAD: Normocephalic. EYES: No scleral icterus. No injection or drainage. NECK: Supple, trachea midline. No JVD or lymphadenopathy. CARDIOVASCULAR: Regular rate and irregular rhythm without murmurs, gallops, or rubs. RESPIRATORY: Decreased Breath sounds equal bilaterally. No accessory muscle use. Nasal cannula 2.5 L/m. GASTROINTESTINAL: Abdomen soft, protuberant non-tender, nondistended. MUSCULOSKELETAL: No cyanosis, or edema. BACK: Nontender without obvious deformity. No CVA tenderness. EXTREMITIES: No clubbing cyanosis or edema, multiple bruises. Neuro: Alert and oriented 3. Moving all extremities Procedures none Date of Insertion: Dec 11, 2016 A/P Problem List: (1) Alcoholism ICD Code: F10.20 Status: Acute Assessment and Plan Seizure. No recurrence - Underlying severe hyponatremia - Possible benzo withdrawal - Ativan when necessary - Monitor for withdrawal - Status post CIWA protocol - 12/11 CT brain normal exam, no skull fracture Hyponatremia-resolved - Most likely chronic due to alcohol abuse - 3% sodium chloride initiated in the ED due to neurological symptomatology - Discontinue LR - Monitor for change in neurological status, and for cerebral edema - discontinue morphine, and Ambien Polyuria -likely secondary to osmotic diuretic. Resolved -Random cortisol within normal limits 7.4 Alcohol abuse. Patient states he has not had alcohol for years Anxiety disorder - Monitor for withdrawal - Discontinue Librium 25 mg secondary to sedation - CIWA protocol and medications - Seizure precautions Lactic acidosis-resolved - Due to seizure - Monitor trend Rhabdomyolysis -Secondary to seizure, creatinine kinase 177 -Continue hydration with LR Tobacco abuse -Smoking cessation counseling -Nicotine patch 7 days Viridans and coag-negative in 1 out of 4 bottles likely contamination. Repeat blood cultures negative to date. Monitor COPD exacerbation suspect aspiration. Improved speech therapy recommended mechanical soft with honey thickened liquid. Aspiration precautions. Continue nebulizations and switch IV steroids to by mouth. Chest x-ray shows edema Acute on chronic heart failure with preserved systolic function. Improved status post pulse doses of Lasix. IV fluid discontinued. CHF education, I/O and monitor weight. Hyperglycemia. Monitor fingersticks. Follow-up A1c Chronic medical conditions coronary artery disease, hypertension and A. fib. Continue outpatient medications as appropriate including aspirin. Consider anticoagulation DVT GI prophylaxis - Teds SCDs subcutaneous heparin - Protonix Discontinue Castillo catheter. Condom catheter as needed Discharge Planning Stable for discharge Martin Davis MD Dec 17, 2016 08:03
[2016-12-17] MEDS ORDERED: METO100T PO (09:59)
[2016-12-17 11:32] LABS: ANION GAP 7 MEQ/L (5-15); BICARBONATE 30.6 MEQ/L (21.0-32.0); BLOOD UREA NITROGEN 18 MG/DL (7-18); CHLORIDE 103 MEQ/L (98-107); GLOMERULAR FILTRATION RATE 80 ML/MIN (>89); POTASSIUM 3.5 MEQ/L (3.5-5.1); SODIUM (NA) 141 MEQ/L (136-145)
[2016-12-17] MEDS ORDERED: ATOR40TA16 PO (12:46)
[2016-12-17] MEDS ORDERED: HYDR-3801 PO (12:46)
[2016-12-17] MEDS ORDERED: LORA-373 PO (12:46)
[2016-12-17] MEDS ORDERED: POTA-243 PO (12:46)
[2016-12-17] MEDS ORDERED: FLUT1INH INH (12:46)
[2016-12-17] MEDS ORDERED: DILT-47 PO (12:46)
[2016-12-17] MEDS ORDERED: FURO1TAB62 PO (12:46)
[2016-12-17] MEDS ORDERED: ISOS20TA PO (12:46)
[2016-12-17] MEDS ORDERED: LOSA25TA PO (12:46)
[2016-12-17] MEDS ORDERED: TEMA15CA PO (12:46)
[2016-12-17] MEDS ORDERED: IPRA0.02 NEB (12:46)
[2016-12-17] MEDS ORDERED: NORC5TAB PO (12:46)
[2016-12-17] MEDS ORDERED: BUSP1TAB PO (12:46)
[2016-12-17] MEDS ORDERED: METO25TA3 PO ×2 (12:46→13:33)
[2016-12-17] MEDS ORDERED: ASPI-110 PO (12:46)
[2016-12-17] MEDS ORDERED: GABA300C5 PO (12:46)
[2016-12-17] MEDS ORDERED: NOVOLOGSS SQ (13:33)
[2016-12-17] MEDS ORDERED: ALBU0.08 NEB (13:33)
[2016-12-17] MEDS ORDERED: PRED20 PO (13:33)
[2016-12-17] MEDS ORDERED: DILT31TA PO (13:33)
[2016-12-17] MEDS ORDERED: HEPA10003 SQ (13:33)
--- NOTE | 2016-12-17 13:35 | HHI.DS ---
Discharge Summary Admission Date Dec 11, 2016 at 21:51 Discharge Date: Dec 17, 2016 Admitting Diagnosis SEIZURES; HYPONATREMIA; SUSPECTED ALCOHOL WITHDRAWAL (1) Alcoholism ICD Code: F10.20 Diagnosis: Principal Procedures none Brief History - From Admission 66-year-old male with history of CAD, VT 2, hypertension, COPD, A. fib on digoxin, alcoholism per record, presents to the emergency department for evaluation. Patient allegedly contacted a friend feeling is that he is having anxiety attack. Patient then had a witnessed seizure and another one in route witnessed by [facility]. Abrasion was given 4 mg of Ativan. While postictal, he was combative with [facility] staff. Patient is a poor historian, answers yes when asked if he drinks alcohol regularly and answered no when asked if he has been drinking today. Patient says no when asked if he is having any pain. Patient has obvious bite to the tongue. No apparent stool or bladder incontinence. CBC/BMP: 12/14/16 0530 12/17/16 1016 Significant Findings Laboratory Tests Test 12/15/16 12/16/16 12/17/16 20:35 03:46 10:16 B-Type Natriuretic Peptide 216 PG/ML (0-100) Carbon Dioxide Level 32.3 MEQ/L (21.0-32.0) Random Glucose 157 MG/DL 206 MG/DL (74-106) (74-106) Estimat Glomerular Filtration 80 ML/MIN (>89) Rate Imaging Last Impressions Chest X-Ray 12/15/16 0000 Signed Impressions: Service Date/Time: Thursday, December 15, 2016 13:18 - CONCLUSION: 1. Cardiomegaly with mild pulmonary vascular congestion. Rudi Boyce MD Maxillofacial CT 12/11/16 0000 Signed Impressions: Service Date/Time: Monday, December 12, 2016 00:13 - CONCLUSION: 1. No acute findings. Exam degraded by some motion artifact. Robe Lester MD Head CT 12/11/16 0000 Signed Impressions: Service Date/Time: Monday, December 12, 2016 00:11 - CONCLUSION: Normal examination for a patient of this age. Robe Lester MD PE at Discharge GENERAL: Obese male , well-nourished in no distress SKIN: Warm and dry. Ecchymotic bruising bilateral forearms secondary to fall. HEAD: Normocephalic. EYES: No scleral icterus. No injection or drainage. NECK: Supple, trachea midline. No JVD or lymphadenopathy. CARDIOVASCULAR: Regular rate and irregular rhythm without murmurs, gallops, or rubs. RESPIRATORY: Decreased Breath sounds equal bilaterally. No accessory muscle use. Nasal cannula 2.5 L/m. GASTROINTESTINAL: Abdomen soft, protuberant non-tender, nondistended. MUSCULOSKELETAL: No cyanosis, or edema. BACK: Nontender without obvious deformity. No CVA tenderness. EXTREMITIES: No clubbing cyanosis or edema, multiple bruises. Neuro: Alert and oriented 3. Moving all extremities Hospital Course Seizure. No recurrence - Underlying severe hyponatremia - Possible benzo withdrawal - Ativan when necessary - Monitor for withdrawal - Status post [facility] protocol - 12/11 CT brain normal exam, no skull fracture Hyponatremia-resolved - Most likely chronic due to alcohol abuse - 3% sodium chloride initiated in the ED due to neurological symptomatology - Discontinue LR - Monitor for change in neurological status, and for cerebral edema - discontinue morphine, and Ambien Polyuria -likely secondary to osmotic diuretic. Resolved -Random cortisol within normal limits 7.4 Alcohol abuse. Patient states he has not had alcohol for years Anxiety disorder - Monitor for withdrawal - Discontinue Librium 25 mg secondary to sedation - CIWA protocol and medications - Seizure precautions Lactic acidosis-resolved - Due to seizure - Monitor trend Rhabdomyolysis -Secondary to seizure, creatinine kinase 177 -Continue hydration with LR Tobacco abuse -Smoking cessation counseling -Nicotine patch 7 days Viridans and coag-negative in 1 out of 4 bottles likely contamination. Repeat blood cultures negative to date. Monitor COPD exacerbation suspect aspiration. Improved speech therapy recommended mechanical soft with honey thickened liquid. Aspiration precautions. Continue nebulizations and switch IV steroids to by mouth. Chest x-ray shows edema Acute on chronic heart failure with preserved systolic function. Improved status post pulse doses of Lasix. IV fluid discontinued. CHF education, I/O and monitor weight. Hyperglycemia. Monitor fingersticks. Follow-up A1c Chronic medical conditions coronary artery disease, hypertension and A. fib. Continue outpatient medications as appropriate including aspirin. Consider anticoagulation outpatient when he is more steady with his gait decrease risk of falls DVT GI prophylaxis - Teds SCDs subcutaneous heparin - Protonix Discontinue Castillo catheter. Condom catheter as needed Pt Condition on Discharge: Stable Discharge Disposition: Discharge to SNF Discharge Time: > 30 minutes Discharge Instructions DIET: Follow Instructions for: Heart Healthy Diet, Diabetic Diet Speech Therapy-Diet Recommends: Mechanical Soft, [place] Thickened Liquids Activities you can perform: Regular-No Restrictions Activities to Avoid: Driving Follow up Referrals: PCP Follow-up - 1 Week New Medications: Albuterol Neb (Albuterol Neb) 2.5 Mg/3 Ml Neb 2.5 MG NEB Q2HR NEB PRN sob #30 NEBULE Diltiazem (Cardizem) 30 Mg Tab 30 MG PO QID Regulate Heart Beat #120 TAB Heparin Sodium (Porcine) (Heparin Sodium) 10,000 Unit/Ml Inj 5000 UNITS SQ Q12HR Prevent Blood Clot #30 INJECTION Insulin Aspart Inj (Novolog Inj) 100 Unit/Ml Inj 1 UNITS SQ ACHS SLIDING SCALE Blood Sugar Management #30 INJECTION Metoprolol Tartrate (Metoprolol Tartrate) 25 Mg Tab 12.5 MG PO Q12HR Regulate Heart Beat #60 TAB Prednisone (Prednisone) 20 Mg Tab 40 MG PO DAILY Control Inflammation #6 TAB Continued Medications: Aspirin DR (Aspirin 81) 81 Mg Tabdr 81 MG PO DAILY Ref 0 TAB Atorvastatin (Atorvastatin) 40 Mg Tab 40 MG PO QID Cholesterol Management #30 Ref 0 TAB Fluticasone-Vilanterol Inh (Breo Ellipta Inh) 100-25 Mcg/Act Inh 1 PUFF INH DAILY Use daily at the same time. #1 Ref 0 INHALER Furosemide (Lasix) 20 Mg Tab 20 MG PO BID #60 Ref 0 TAB Gabapentin (Gabapentin) 300 Mg Cap 300 MG PO HS #30 Ref 0 CAP Ipratropium Neb (Ipratropium Neb) 0.5 Mg/2.5 Ml Amp 0.5 MG NEB Q4HR NEB Ref 0 NEBULE Isosorbide Mononitrate (Isosorbide Mononitrate) 20 Mg Tab 60 MG PO DAILY Take 2 doses 7 hours apart. Prevent Chest Pain #60 Ref 0 TAB Potassium Chloride ER (Klor-Con 10) 10 Meq Tab 10 MEQ PO BID Electrolyte Replacement #60 Ref 0 TAB Additional Information I spent 35 minutes [id number] with the patient or on the diaz discussing the patient's disposition, prognosis, and plan of care with patient's caregivers. Over half the time spent was devoted to counseling the patient regarding placement in coordinating care with caregivers and case management. Martin Davis MD Dec 17, 2016 13:35
[2016-12-17 16:23] LABS: HEMOGLOBIN A1a 0.8 %; HEMOGLOBIN Ao 83.2 %; HEMOGLOBIN LA1C 2.7 %; HEMOGLOBIN P3 4.3 %
== END 2016-12-17 15:30 | DRG 100 ==
LOC: NEPC 20:23 → NEDA 21:51 → HIME 12-12 00:20
PROVIDERS: ADMIT Internal Medicine; ATTEND Internal Medicine
DX: G40.89 Other seizures (principal); I50.33 Acute on chronic diastolic (congestive) heart failure; E87.2 Acidosis; M62.82 Rhabdomyolysis; E87.1 Hypo-osmolality and hyponatremia; J44.1 Chronic obstructive pulmonary disease with (acute) exacerbation; F10.230 Alcohol dependence with withdrawal, uncomplicated; F13.239 Sedative, hypnotic or anxiolytic dependence with withdrawal, unspecified; I11.0 Hypertensive heart disease with heart failure; I48.91 Unspecified atrial fibrillation; F41.9 Anxiety disorder, unspecified; G89.29 Other chronic pain; I25.10 Atherosclerotic heart disease of native coronary artery without angina pectoris; R73.9 Hyperglycemia, unspecified; E87.70 Fluid overload, unspecified; M54.5 Low back pain; M19.90 Unspecified osteoarthritis, unspecified site; R09.02 Hypoxemia; J45.909 Unspecified asthma, uncomplicated; K21.9 Gastro-esophageal reflux disease without esophagitis; I25.2 Old myocardial infarction; Z95.1 Presence of aortocoronary bypass graft; Z87.891 Personal history of nicotine dependence; Z78.1 Physical restraint status; R35.8 Other polyuria
CPT/HCPCS: 70450; 70486; 71010; 80048; 80053; 80061; 80162; 80307; 81001; 82024; 82533; 82550; 82552; 82948; 83036; 83605; 83735; 83880; 83935; 84100; 84295; 84300; 84443; 85025; 85027; 85610; 87040; 87186; 87205; 87641; 93005; 94640; 94664; 95819; 96361; 96365; 96375; C9113; J0360; J0692; J1644; J1815; J1940; J2060; J2250; J2270; J2920; J3370; J7030; J7050; J7120; J7512

== ENCOUNTER 2017-01-18 12:01 | Inpatient (IN) | payer OTHER, MEDICARE ==
[~2017-01-18] VITALS: Ht 167.6 cm; Wt 111.5 kg
[2017-01-18] VITALS (13 sets, daily range): BP systolic 143–173; BP diastolic 83–102; PULSE 82–115; RESP 13–28; TEMP 97.5–97.7; O2SAT 92–97
[~2017-01-18 12:01] MED LIST changes: +ALBU0.08 NEB; -ALBU6.7H INH; +ASPI-110 PO; -ASPI325T PO; +ATOR40TA16 PO; +BUSP1TAB PO; -DIGO.25 PO; +DILT-47 PO; +DILT31TA PO; -DILTCD300 PO; -DUONI INH; +FLUT1INH INH; +FURO1TAB62 PO; -FURO80TA3 PO; +GABA300C5 PO; +HEPA10003 SQ; +HYDR-3801 PO; -HYDRA25 PO; +IPRA0.02 NEB; +ISOS20TA PO; +LORA-373 PO; -LORA-392 PO; -LOSA25 PO; +LOSA25TA PO; +METO25TA3 PO; -NEBUMIS6 INH; +NORC5TAB PO; +NOVOLOGSS SQ; -OMEP20CA5 PO; -OXYC1TAB13 PO; -PRAV20TA67 PO; -PRED10 PO; +PRED20 PO; -SYMB160A INH; +TEMA15CA PO; -TIOT18I INH; -Z.0.OXYGENDME NC
--- NOTE | 2017-01-18 12:10 | PD ---
HPI Chief Complaint: shortness of breath Time Seen by Provider: 12:08 Travel History International Travel<30 days: No Contact w/Intl Traveler<30days: No History of Present Illness HPI 66-year-old male arrives to the ER with shortness of breath. This was called by the patient's home health special education educational assistant. He was struggling to breathe at home. On their arrival his oxygen saturation was in the low 80s. He is on oxygen 24 7 due to COPD and CHF. EMS gave the patient 100 mg Lasix and started CPAP. O2 sat is prior to ER arrival 94%. In the ER the patient is complaining of low back pain thereby limiting the initial historical data. Upon reassessing the patient he denies the presence of chest pain. 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 PFSH Past Medical History Arthritis: Yes Asthma: Yes Blood Disorders: No Anxiety: Yes Depression: No Heart Rhythm Problems: Yes ( ) Cancer: No Cardiac Catheterization: Yes (X2) Cardiovascular Problems: Yes High Cholesterol: Yes Chemotherapy: No Chest Pain: Yes Congestive Heart Failure: Yes COPD: Yes Coronary Artery Disease: Yes (STATES PARTIAL BLOCKAGES) Diabetes: No Diminished Hearing: No Endocrine: No Gastrointestinal Disorders: Yes GERD: Yes Genitourinary: No Headaches: Yes Hypertension: Yes Immune Disorder: No Kidney Stones: Yes Musculoskeletal: Yes Neurologic: Yes Psychiatric: Yes Reproductive: No Respiratory: Yes (CHRONIC BRONCHITIS) Immunizations Current: Yes Myocardial Infarction: Yes (STATES SMALL ONES TIMES TWO) Radiation Therapy: No Ulcer: Yes Past Surgical History AICD: No Arteriovenous Shunt: No Body Medical Devices: IMPLANTED TITANIUM DEVICES [RODS & SCREWS] IN BACK Coronary Artery Bypass Graft: Yes Insulin Pump: No Joint Replacement: No Oral Surgery: Yes (CYST REMOVED THROAT 'S) Pacemaker: No Other Surgery: Yes (CARPAL TUNNEL) Social History Alcohol Use: Yes (DAILY) Tobacco Use: Yes (USES NICOTINE PATCH) Substance Use: No Allergies-Medications (Allergen,Severity, Reaction): Coded Allergies: Lisinopril (Verified Allergy, Severe, Edema, 01/18/17) Simvastatin (Verified Allergy, Unknown, Unknown, 01/18/17) Reported Meds & Prescriptions Reported Meds & Active Scripts Active Cardizem (Diltiazem HCl) 30 Mg Tab 30 Mg PO QID Albuterol Neb (Albuterol Sulfate) 2.5 Mg/3 Ml Neb 2.5 Mg NEB Q2HR NEB PRN Reported Lasix (Furosemide) 20 Mg Tab 20 Mg PO BID Prednisone 10 Mg Tab 10 Mg PO DAILY Lidocaine Patch 12 HR (Lidocaine) 5 % Patch 1 Patch TOPICAL DAILY Remove patch after 12 hours Flexeril (Cyclobenzaprine HCl) 5 Mg Tab 5 Mg PO TID PRN Humalog Cartridge Inj (Insulin Lispro (Human) Inj) 300 Unit/3 Ml Soln 2-10 Units SQ TIDAC PRN Symbicort Inh (Budesonide/Formoterol Fumarate) 160-4.5 Mcg/Act Aero 2 Puff INH Q12HR Duoneb (Ipratropium-Albuterol Neb) 0.5-2.5 Mg/3 Ml Neb 1 Nebule INH TID Ferrous Sulfate 325 Mg (65 Mg Iron) Tablet 325 Mg PO TIDPC Daily [place] (Multiple Vitamin) 1 Tab Tab 1 Tab PO DAILY Guaifenesin ER (Guaifenesin) 600 Mg Tab.er.12h 1 Tab PO BID Metoprolol Tartrate 25 Mg Tab 12.5 Mg PO BID [place] (Hydrocodone-Acetaminophen) 5-325 mg Tab 1 Tab PO Q6HR PRN Aspirin 81 (Aspirin) 81 Mg Tabdr 81 Mg PO DAILY Atorvastatin (Atorvastatin Calcium) 40 Mg Tab 40 Mg PO HS Isosorbide Mononitrate 20 Mg Tab 60 Mg PO DAILY Take 2 doses 7 hours apart. Klor-Con 10 (Potassium Chloride) 10 Meq Tab 10 Meq PO BID Gabapentin 300 Mg Cap 300 Mg PO HS Temazepam 15 Mg Cap 15 Mg PO HS Physical Exam Narrative GENERAL: 66 yo, WNWD, moderate distress 2/2 dyspnea and back pain SKIN: Warm and dry. HEAD: Atraumatic. Normocephalic. EYES: Pupils equal and round. No scleral icterus. No injection or drainage. ENT: No nasal bleeding or discharge. Mucous membranes pink and moist. NECK: Trachea midline. No JVD. CARDIOVASCULAR: Irregular rhythm. Tachycardia to about 100. RESPIRATORY: Rales are present at both bases. Tachypnea present. The patient has BiPAP applied. GASTROINTESTINAL: Abdomen soft, non-tender, nondistended. Hepatic and splenic margins not palpable. MUSCULOSKELETAL: Extremities without clubbing, cyanosis, or edema. No obvious deformities. NEUROLOGICAL: Awake and alert. No obvious cranial nerve deficits. Motor grossly within normal limits. Five out of 5 muscle strength in the arms and legs. Normal speech. PSYCHIATRIC: Appropriate mood and affect; insight and judgment normal. Data Data Last Documented VS Vital Signs Date Time Temp Pulse Resp B/P Pulse Ox O2 Delivery O2 Flow Rate FiO2 01/18/17 13:00 97.7 105 16 143/85 95 BiPAP 40 Orders Complete Blood Count With Diff (01/18/17 12:04) Basic Metabolic Panel (Bmp) (01/18/17 12:04) B-Type Natriuretic Peptide (01/18/17 12:04) Ckmb (Isoenzyme) Profile (01/18/17 12:04) Troponin I (01/18/17 12:04) Iv Access Insert/Monitor (01/18/17 12:04) Electrocardiogram (01/18/17 12:04) Ecg Monitoring (01/18/17 12:04) Oximetry (01/18/17 12:04) Oxygen Administration (01/18/17 12:04) Chest, Single Ap (01/18/17 12:04) Sodium Chloride 0.9% Flush (Ns Flush) (01/18/17 12:15) Methylprednisolone So Succ Inj (Solumedr (01/18/17 12:15) Albuterol-Ipratropium Neb (Duoneb Neb) (01/18/17 12:15) Resp Bipap / Cpap Non Invas Vt (01/18/17 12:04) Morphine Inj (Morphine Inj) (01/18/17 12:15) Blood Culture (01/18/17 12:54) Ceftriaxone Inj (Rocephin Inj) (01/18/17 13:00) Azithromycin Inj (Zithromax Inj) (01/18/17 13:00) Arterial Blood Gas (Abg) (01/18/17 13:10) Admit Order (Ed Use Only) (01/18/17 13:50) Labs Laboratory Tests Test 01/18/17 01/18/17 12:20 13:10 White Blood Count 21.4 TH/MM3 Red Blood Count 4.01 MIL/MM3 Hemoglobin 11.6 GM/DL Hematocrit 35.6 % Mean Corpuscular Volume 88.6 FL Mean Corpuscular Hemoglobin 29.0 PG Mean Corpuscular Hemoglobin 32.8 % Concent Red Cell Distribution Width 16.1 % Platelet Count 245 TH/MM3 Mean Platelet Volume 8.1 FL Neutrophils (%) (Auto) 72.8 % Lymphocytes (%) (Auto) 12.2 % Monocytes (%) (Auto) 9.6 % Eosinophils (%) (Auto) 0.6 % Basophils (%) (Auto) 4.8 % Neutrophils # (Auto) 15.6 TH/MM3 Lymphocytes # (Auto) 2.6 TH/MM3 Monocytes # (Auto) 2.1 TH/MM3 Eosinophils # (Auto) 0.1 TH/MM3 Basophils # (Auto) 1.0 TH/MM3 CBC Comment AUTO DIFF Differential Comment AUTO DIFF CONFIRMED Sodium Level 142 MEQ/L Potassium Level 4.7 MEQ/L Chloride Level 102 MEQ/L Carbon Dioxide Level 31.4 MEQ/L Anion Gap 9 MEQ/L Blood Urea Nitrogen 41 MG/DL Creatinine 1.70 MG/DL Estimat Glomerular Filtration 41 ML/MIN Rate Random Glucose 105 MG/DL Calcium Level 9.4 MG/DL Total Creatine Kinase 34 U/L Troponin I 0.07 NG/ML B-Type Natriuretic Peptide 253 PG/ML Blood Gas Puncture Site LT RADIAL Blood Gas Patient Temperature 98.6 Blood Gas HCO3 33 mmol/L Blood Gas Base Excess 7.2 mmol/L Blood Gas Oxygen Saturation 90 % Arterial Blood pH 7.32 Arterial Blood Partial 67 mmHG Pressure CO2 Arterial Blood Partial 88 mmHG Pressure O2 Arterial Blood Oxygen Content 14.7 Vol % Arterial Blood 4.7 % Carboxyhemoglobin Arterial Blood Methemoglobin 1.1 % Blood Gas Hemoglobin 11.6 G/DL Oxygen Delivery Device BIPAP Blood Gas Ventilator Setting IPAP15/ EPAP5 Blood Gas Inspired Oxygen 40 % [facility] Medical Decision Making Medical Screen Exam Complete: Yes Emergency Medical Condition: Yes Medical Record Reviewed: Yes Differential Diagnosis CHF exacerbation, COPD exacerbation, renal failure, pneumonia, sepsis, arrhythmia Narrative Course CBC & BMP Diagram 01/18/17 12:20 Tn 0.07 BNP 253 AB.32/67/33 pO2 87 on BIPAP 15/5/40% EKG reveals A. fib with a rate of 105 similar to priors Chest x-ray shows CHF with possible right basal pneumonia EMS gave 100 mg of Lasix. Here the patient received 2 nebs and Solu-Medrol. Rocephin and azithromycin started. The patient produced about 500 cc of urine. The case was discussed with cardiology, Dr. Wakefield, who agrees that admission to the [facility] is not required. Case discussed with Dr. Barnes for [facility] service. Diagnosis Primary Impression: CHF (congestive heart failure) Qualified Code: I50.9 - Congestive heart failure, unspecified congestive heart failure chronicity, unspecified congestive heart failure type Additional Impressions: COPD (chronic obstructive pulmonary disease) Qualified Code: J44.9 - Chronic obstructive pulmonary disease, unspecified COPD type A-fib Qualified Code: I48.2 - Chronic atrial fibrillation Admitting Information Admitting Physician Requests: Observation Chalino Leggett MD Jan 18, 2017 12:10
[2017-01-18] MEDS ORDERED: MORPHINE SULFATE 8 MG/ML INJ IV PUSH ONE (12:15)
[2017-01-18] MEDS: RESP: ALBUTEROL 2.5 MG/IPRATROPIUM 0.5 MG NEB (SCH) INH ×2 (12:15→12:16)
[2017-01-18] MEDS ORDERED: SODIUM CHLORIDE 0.9% FLUSH 10 ML FLUSH IVF PRN (12:15)
[2017-01-18] MEDS ORDERED: methylPREDNISolone SOD SUCC 125 MG/2 ML VIAL IVP ONE (12:15)
[2017-01-18 12:33] LABS: AUTOMATED NEUTROPHIL # 15.6 TH/MM3 (1.8-7.7); BASOPHIL % 4.8 % (0.0-2.0); EOSINOPHIL # 0.1 TH/MM3 (0-0.4); EOSINOPHIL % 0.6 % (0.0-4.0); HEMATOCRIT 35.6 % (39.0-51.0); LYMPH % 12.2 % (9.0-44.0); LYMPHOCYTE # 2.6 TH/MM3 (1.0-4.8); MEAN CELL VOLUME 88.6 FL (80.0-100.0); MEAN CORPUSCULAR HGB CONC 32.8 % (32.0-36.0); MONO % 9.6 % (0.0-8.0); NEUT % 72.8 % (16.0-70.0); PLATELET COUNT 245 TH/MM3 (150-450); RED BLOOD COUNT 4.01 MIL/MM3 (4.50-5.90); RED CELL DISTRIBUTION WIDTH 16.1 % (11.6-17.2); WHITE BLOOD COUNT 21.4 TH/MM3 (4.0-11.0)
[2017-01-18 12:39] LABS: HEMO FLAGS AUTO DIFF
[2017-01-18 12:43] LABS: POTASSIUM 4.7 MEQ/L (3.5-5.1)
[2017-01-18] MEDS ORDERED: SYMB160A INH (12:45)
[2017-01-18] MEDS ORDERED: FURO1TAB62 PO (12:45)
[2017-01-18] MEDS ORDERED: HUMA100I2 SQ (12:45)
[2017-01-18] MEDS ORDERED: GUAI600T34 PO (12:45)
[2017-01-18] MEDS ORDERED: PRED10 PO (12:45)
[2017-01-18] MEDS ORDERED: IPRASOL INH (12:45)
[2017-01-18] MEDS ORDERED: FERR325T8 PO (12:45)
[2017-01-18] MEDS ORDERED: CYCL5TAB PO (12:45)
[2017-01-18] MEDS ORDERED: LIDO1PAD52 TOPICAL (12:45)
[2017-01-18] MEDS ORDERED: DAILTAB39 PO (12:45)
[2017-01-18 12:49] LABS: BICARBONATE 31.4 MEQ/L (21.0-32.0)
--- NOTE | 2017-01-18 12:58 | RADRPT ---
EXAM DATE/TIME: 01/18/2017 12:33 [place] COMPARISON: CHEST SINGLE AP, December 15, 2016, 13:18. INDICATIONS : Short of breath MEDICAL HISTORY : Myocardial infarction. Hypercholesterolemia. Hypertension. CHF,A Fib, Asthma SURGICAL HISTORY : Cardiac catherization ENCOUNTER: Initial ACUITY: 1 day PAIN SCORE: 1/10 LOCATION: Bilateral chest FINDINGS: There is cardiomegaly with moderate congestive failure without pneumothorax or pleural effusion. CONCLUSION: Moderate congestive failure. Elvin Ba MD FACR on January 18, 2017 at 12:56 Board Certified Radiologist. This report was verified electronically.
[2017-01-18] MEDS ORDERED: AZITHROMYCIN INJ 500 MG in SODIUM CHLOR 0.9% 250 ML INJ 250 ML IV ONE (13:00)
[2017-01-18] MEDS ORDERED: cefTRIAXone INJ 1,000 MG in SODIUM CHLORIDE 0.9% INJ 100 ML IV ONE (13:00)
[2017-01-18 13:09] LABS: SCAN/DIFF AUTO DIFF CONFIRMED
[2017-01-18 13:18] LABS: BLOOD GAS BASE EXCESS 7.2 mmol/L (-2-2); BLOOD GAS CARBOXYHEMOGLOBIN 4.7 % (0-4); BLOOD GAS HCO3 33 mmol/L (22-26); BLOOD GAS METHEMOGLOBIN 1.1 % (0-2); BLOOD GAS O2 HGB SATURATION 90 % (90-100); BLOOD GAS OXYGEN CONTENT 14.7 Vol % (12.0-20.0); BLOOD GAS PCO2 67 mmHG (38-42); BLOOD GAS PO2 88 mmHG (61-120); BLOOD GAS TOTAL HGB 11.6 G/DL (12.0-16.0); CRITICAL VALUE YES; DRAW SITE LT RADIAL; FIO2 40 %; NUMBER OF ARTERIAL PUNCTURES 1; OXYGEN DEVICE BIPAP; TEMP CORR TO 98.6; ULNAR PULSE PRESENT; VENT SETTINGS IPAP15/ EPAP5
[2017-01-18 13:19] LABS: STAT NO
[2017-01-18] MEDS ORDERED: VANCOMYCIN INJ 1,000 MG in SODIUM CHLOR 0.9% 250 ML INJ 250 ML IV SCH (14:15)
[2017-01-18] MEDS ORDERED: DEXTROSE 50% IN WATER 50 ML VIAL(D50) IV PRN (14:15)
[2017-01-18] MEDS ORDERED: RESP: ALBUTEROL 1.25 MG/3 ML NEB (PRN) NEB (14:15)
[2017-01-18] MEDS ORDERED: GLUCAGON 1 MG/ML VIAL OTHER PRN (14:15)
[2017-01-18] MEDS ORDERED: Vancomycin Consult Pharmacy 1 EA OTHER SCH (14:15)
--- NOTE | 2017-01-18 14:33 | HHI.HP ---
[facility] Service [facility] Primary Care Physician [facility] Admission Diagnosis CHF Exacerbation; Poss PNA Diagnoses: (1) CHF (congestive heart failure) Diagnosis: Principal (2) COPD (chronic obstructive pulmonary disease) Diagnosis: Principal (3) Hypercapnic respiratory failure Diagnosis: Principal Chief Complaint: shortness of breath Travel History International Travel<30 Days: No Contact w/Intl Traveler <30 Da: No Traveled to Known Affected Are: No History of Present Illness patient is a 66 y/o male with history of CAD, CHF,hypertension and COPD- on home oxygen, chronic smoker, who presented to ER with worsening shortness of breath. he says that his sob started yesterday and gradually got worse. he denies any fever, chills, or productive cough. but he mentions that his legs are more swollen despite taking his lasix. he was placed on BiPaP at the time of arrival to ER. at the time of my evaluation, he was still on BiPaP with some sob. he denies any chest pain. he says that he stopped smoking but he started again. he was discharged from the rehab about three weeks ago. Review of Systems Constitutional: DENIES: Fever, Weight loss, Chills, Night Sweats Eyes: DENIES: Blurred vision, Diplopia, Vision loss, Double Vision Ears, nose, mouth, throat: DENIES: Tinnitus, Vertigo, Throat pain, Epistaxis Respiratory: COMPLAINS OF: Shortness of breath, DENIES: Apneas, Cough, Snoring , Wheezing, Hemoptysis, Sputum production Cardiovascular: COMPLAINS OF: Lower Extremity Edema, DENIES: Chest pain, Palpitations, Syncope, Dyspnea on Exertion, PND, Orthopnea, Claudication Gastrointestinal: DENIES: Abdominal pain, Black stools, Bloody stools, Constipation, Diarrhea, Nausea, Vomiting, Difficulty Swallowing, Anorexia Genitourinary: DENIES: Urinary frequency, Urgency, Hematuria, Dysuria Musculoskeletal: DENIES: Joint pain, Muscle aches, Stiffness, Joint Swelling Integumentary: DENIES: Rash Neurologic: DENIES: Abnormal gait, Headache, Localized weakness, Paresthesias, Seizures, Speech Problems, Tremor, Poor Balance Psychiatric: DENIES: Anxiety, Confusion, Mood changes, Depression, Hallucinations, Agitation, Suicidal Ideation, Homicidal Ideation, Delusions Past Family Social History Past Medical History CAD hypertension COPD dyslipidemia Past Surgical History CABG Reported Medications Prednisone 20 Mg Tab 40 Mg PO DAILY Metoprolol Tartrate 25 Mg Tab 12.5 Mg PO Q12HR Novolog Inj (Insulin Aspart) 100 Unit/Ml Inj 1 Units SQ ACHS SLIDING SCALE Heparin Sodium (Heparin Sodium (Porcine)) 10,000 Unit/Ml Inj 5,000 Units SQ Q12HR Cardizem (Diltiazem HCl) 30 Mg Tab 30 Mg PO QID Albuterol Neb (Albuterol Sulfate) 2.5 Mg/3 Ml Neb 2.5 Mg NEB Q2HR NEB PRN Breo Ellipta Inh (Fluticasone/Vilanterol) 100-25 Mcg/Act Inh 1 Puff INH DAILY Use daily at the same time. Hydralazine (Hydralazine HCl) 100 Mg Tab 100 Mg PO TID Take with meals Buspirone (Buspirone HCl) 7.5 Mg Tab 7.5 Mg PO BID Metoprolol Tartrate 25 Mg Tab 25 Mg PO BID [place] (Hydrocodone-Acetaminophen) 5-325 mg Tab 1 Tab PO DAILY PRN Aspirin 81 (Aspirin) 81 Mg Tabdr 81 Mg PO DAILY Atorvastatin (Atorvastatin Calcium) 40 Mg Tab 40 Mg PO QID Isosorbide Mononitrate 20 Mg Tab 60 Mg PO DAILY Take 2 doses 7 hours apart. Losartan (Losartan Potassium) 25 Mg Tab 25 Mg PO DAILY Diltiazem ER 24 HR 300 Mg Caper 300 Mg PO QID Lasix (Furosemide) 20 Mg Tab 20 Mg PO BID Ipratropium Neb (Ipratropium [place]) 0.5 Mg/2.5 Ml Amp 0.5 Mg NEB Q4HR NEB Klor-Con 10 (Potassium Chloride) 10 Meq Tab 10 Meq PO BID Gabapentin 300 Mg Cap 300 Mg PO HS Lorazepam 0.5 Mg Tab 0.5 Mg PO TID PRN Temazepam 15 Mg Cap 15 Mg PO HS Metoprolol Tartrate 100 mg (Metoprolol Tartrate) 100 Mg Tab 50 Mg PO BID Allergies: Coded Allergies: Lisinopril (Verified Allergy, Severe, Edema, 01/18/17) Simvastatin (Verified Allergy, Unknown, Unknown, 01/18/17) Active Ordered Medications Current Medications Sodium Chloride (NS Flush) 2 ml UNSCH PRN IVF FLUSH AFTER USING IV ACCESS; Start 01/18/17 at 12:15 Methylprednisolone Sodium Succinate (SoluMEDROL INJ) 125 mg ONCE ONCE IVP Last administered on 01/18/17 12:11; Start 01/18/17 at 12:15; Stop 01/18/17 at 12:16; Status DC Albuterol/ Ipratropium (Duoneb Neb) 1 ampule Q15M INH Last administered on 01/18 12:16; Start 01/18/17 at 12:15; Stop 01/18/17 at 12:46; Status DC Morphine Sulfate 5 mg 5 mg ONCE ONCE IV PUSH Last administered on 01/18/17 12 :11; Start 01/18/17 at 12:15; Stop 01/18/17 at 12:16; Status DC Ceftriaxone Sodium 1000 mg/ Sodium Chloride 100 ml @ 200 mls/hr ONCE ONCE IV Last administered on 01/18/17 13:32; Start 01/18/17 at 13:00; Stop 01/18/17 at 13:29; Status DC Azithromycin/ Sodium Chloride (Zithromax Inj/ NS 250 ml Inj) 250 ml @ 250 mls/ hr ONCE ONCE IV ; Start 01/18/17 at 13:00; Stop 01/18/17 at 13:59; Status DC Family History not significant. Social History smokes two packs a day- doesn't drink. Physical Exam Vital Signs Vital Signs Date Time Temp Pulse Resp B/P Pulse Ox O2 Delivery O2 Flow Rate FiO2 01/18/17 13:00 97.7 105 16 143/85 95 BiPAP 40 01/18/17 12:20 14 01/18/17 12:05 115 28 97 BiPAP 40 01/18/17 12:05 97 BiPAP 40 01/18/17 12:05 97.6 115 28 173/98 97 01/18/17 12:05 BiPAP 40 01/18/17 12:00 97 40 Physical Exam GENERAL: obese with some sob-on BiPaP SKIN: No rashes, ecchymoses or lesions. Cool and dry. HEAD: Atraumatic. Normocephalic. No temporal or scalp tenderness. EYES: Pupils equal round and reactive. Extraocular motions intact. No scleral icterus. No injection or drainage. ENT: Nose without bleeding, purulent drainage or septal hematoma. Throat without erythema, tonsillar hypertrophy or exudate. Uvula midline. Airway patent. NECK: Trachea midline. No JVD or lymphadenopathy. Supple, nontender, no meningeal signs. CARDIOVASCULAR: Regular rate and rhythm without murmurs, gallops, or rubs. RESPIRATORY: Clear to auscultation. Breath sounds equal bilaterally. No wheezes , rales, or rhonchi. GASTROINTESTINAL: Abdomen soft, non-tender, nondistended. No hepato-splenomegaly , or palpable masses. No guarding. MUSCULOSKELETAL: Extremities with bilateral pedal edema. NEUROLOGICAL: Awake and alert. Cranial nerves II through XII intact. Motor and sensory grossly within normal limits. Five out of 5 muscle strength in all muscle groups. Normal speech. Laboratory Laboratory Tests Test 01/18/17 01/18/17 12:20 13:10 White Blood Count 21.4 Red Blood Count 4.01 Hemoglobin 11.6 Hematocrit 35.6 Mean Corpuscular Volume 88.6 Mean Corpuscular Hemoglobin 29.0 Mean Corpuscular Hemoglobin 32.8 Concent Red Cell Distribution Width 16.1 Platelet Count 245 Mean Platelet Volume 8.1 Neutrophils (%) (Auto) 72.8 Lymphocytes (%) (Auto) 12.2 Monocytes (%) (Auto) 9.6 Eosinophils (%) (Auto) 0.6 Basophils (%) (Auto) 4.8 Neutrophils # (Auto) 15.6 Lymphocytes # (Auto) 2.6 Monocytes # (Auto) 2.1 Eosinophils # (Auto) 0.1 Basophils # (Auto) 1.0 CBC Comment AUTO DIFF Differential Comment AUTO DIFF CONFIRMED Sodium Level 142 Potassium Level 4.7 Chloride Level 102 Carbon Dioxide Level 31.4 Anion Gap 9 Blood Urea Nitrogen 41 Creatinine 1.70 Estimat Glomerular Filtration 41 Rate Random Glucose 105 Calcium Level 9.4 Total Creatine Kinase 34 Troponin I 0.07 B-Type Natriuretic Peptide 253 Blood Gas Puncture Site LT RADIAL Blood Gas Patient Temperature 98.6 Blood Gas HCO3 33 Blood Gas Base Excess 7.2 Blood Gas Oxygen Saturation 90 Arterial Blood pH 7.32 Arterial Blood Partial 67 Pressure CO2 Arterial Blood Partial 88 Pressure O2 Arterial Blood Oxygen Content 14.7 Arterial Blood 4.7 Carboxyhemoglobin Arterial Blood Methemoglobin 1.1 Blood Gas Hemoglobin 11.6 Oxygen Delivery Device BIPAP Blood Gas Ventilator Setting IPAP15/ EPAP5 Blood Gas Inspired Oxygen 40 Date/Time Procedure Status Source Growth 01/18/17 13:25 Aerobic Blood Culture Received Blood Peripheral Pending 01/18/17 13:25 Anaerobic Blood Culture Received Blood Peripheral Pending Result Diagram: 01/18/17 1220 01/18/17 1220 Imaging Last Impressions Chest X-Ray 01/18/17 1204 Signed Impressions: Service Date/Time: Wednesday, January 18, 2017 12:33 - CONCLUSION: Moderate congestive failure. Elvin Ba MD FACR EKG; atrial fibrillation with rapid ventricular rate. Assessment and Plan Assessment and Plan A/P - acute on chronic hypercapnic respiratory failure due to COPD exacerbation and acute on chronic diastolic CHF will repeat the ABG on BiPaP and will try to switch to oxygen via N/C as he tolerates. continue with scheduled and PRN neb treatment. continue with IV steroid and IV diuretic. will check echo- will consult cardiology and pulmonary -sepsis due to possible pneumonia start broad spectrum IV antibiotics and follow the cultures- pulmonary consult as noted above. -atrial fibrillation with rapid ventricular response resume metoprolol and cardizem- continue to monitor- will consider cardizem drip if HR not controlled on PO meds. -acute kidney injury will monitor renal function closely while on IV diuretic- will consider nephrology evaluation if renal function gets worse. -CAD- s/p CABG with mild elevation of troponin continue aspirin, metoprolol,imdur and statin- repeat the cardiac enzymes- cardiology evaluation as noted above. -hypertension; resume home meds- will monitor and adjust the regimen as needed. -DVT prophylaxis with subq Lovenox. will monitor in ICU closely. critical care time 40 min. Discussed Condition With ER physician and the patient. Physician Certification 2 Midnight Certification Type: Admission for Inpatient Services Order for Inpatient Services The services are ordered in accordance with Medicare regulations or non- Medicare payer requirements, as applicable. In the case of services not specified as inpatient-only, they are appropriately provided as inpatient services in accordance with the 2-midnight benchmark. Estimated LOS (days): 3 days is the estimated time the patient will need to remain in the hospital, assuming treatment plan goals are met and no additional complications. Post-Hospital Plan: Not yet determined Problem Qualifiers (1) CHF (congestive heart failure): Qualified Code: I50.9 - Congestive heart failure, unspecified congestive heart failure chronicity, unspecified congestive heart failure type (2) COPD (chronic obstructive pulmonary disease): Qualified Code: J44.9 - Chronic obstructive pulmonary disease, unspecified COPD type (3) Hypercapnic respiratory failure: Qualified Code: J96.22 - Acute on chronic respiratory failure with hypercapnia Tez Barnes MD Jan 18, 2017 14:33
[2017-01-18] MEDS: RESP: ALBUTEROL 2.5 MG/IPRATROPIUM 0.5 MG NEB (SCH) NEB ×2 (15:10→20:00)
[2017-01-18] MEDS: ENOXAPARIN SODIUM 40 MG/0.4 ML SYRINGE SQ SCH (15:35)
[2017-01-18] MEDS: CEFEPIME INJ 2,000 MG in SODIUM CHLORIDE 0.9% INJ 100 ML IV SCH ×2 (15:35→23:32)
[2017-01-18] MEDS: FUROSEMIDE 40 MG/4 ML VIAL IV PUSH SCH (15:35)
[2017-01-18] MEDS: INSULIN ASPART SUPPLEMENTAL SCALE SQ SCH ×2 (16:00→20:17)
[2017-01-18 16:03] LABS: BLOOD GAS BASE EXCESS 10.5 mmol/L (-2-2); BLOOD GAS CARBOXYHEMOGLOBIN 3.5 % (0-4); BLOOD GAS HCO3 37 mmol/L (22-26); BLOOD GAS METHEMOGLOBIN 1.2 % (0-2); BLOOD GAS O2 HGB SATURATION 92 % (90-100); BLOOD GAS OXYGEN CONTENT 15.3 Vol % (12.0-20.0); BLOOD GAS PCO2 77 mmHg (38-42); BLOOD GAS PO2 96 mmHg (61-120); BLOOD GAS TOTAL HGB 11.7 G/DL (12.0-16.0); CRITICAL VALUE YES; DRAW SITE RT RADIAL; FIO2 40 %; NUMBER OF ARTERIAL PUNCTURES 1; OXYGEN DEVICE BIPAP; STAT NO; ULNAR PULSE PRESENT; VENT SETTINGS EPAP 5/IPAP 15
[2017-01-18] MEDS: VANCOMYCIN INJ 1,900 MG in SODIUM CHLORID 0.9% 500 ML INJ 500 ML IV SCH (17:00)
[2017-01-18] MEDS: DILTIAZEM HCL 30 MG TAB PO SCH ×3 (17:17→20:10)
[2017-01-18] MEDS: POTASSIUM CHLORIDE 10 MEQ CONTROLLED RELEASE TAB PO SCH (20:10)
[2017-01-18] MEDS: METOPROLOL TARTRATE 25 MG TAB PO SCH (20:10)
[2017-01-18] MEDS: BUDESONIDE-FORMOTEROL 160/4.5 MCG INHALER INH SCH (20:10)
[2017-01-18] MEDS: GABAPENTIN 300 MG CAP PO SCH (20:10)
[2017-01-18] MEDS: ATORVASTATIN 40 MG TAB PO SCH (20:10)
[2017-01-18] MEDS: methylPREDNISolone SOD SUCC 40 MG/1 ML VIAL IV PUSH SCH (20:11)
[2017-01-18] MEDS ORDERED: ACETAMINOPHEN/HYDROcodone 325 MG/5 MG TAB PO ONE (22:15)
[2017-01-19] VITALS (33 sets, daily range): BP systolic 137–174; BP diastolic 70–92; PULSE 86–154; RESP 11–32; TEMP 97.8–99.1; O2SAT 85–95
[2017-01-19] MEDS: RESP: ALBUTEROL 2.5 MG/IPRATROPIUM 0.5 MG NEB (SCH) NEB ×8 (00:30→23:45)
[2017-01-19] MEDS: methylPREDNISolone SOD SUCC 40 MG/1 ML VIAL IV PUSH SCH ×3 (03:51→20:23)
[2017-01-19 04:31] LABS: AUTOMATED NEUTROPHIL # 7.5 TH/MM3 (1.8-7.7); BASOPHIL # 0.1 TH/MM3 (0-0.2); BASOPHIL % 1.5 % (0.0-2.0); EOSINOPHIL # 0.1 TH/MM3 (0-0.4); EOSINOPHIL % 0.6 % (0.0-4.0); HEMATOCRIT 36.3 % (39.0-51.0); LYMPH % 8.4 % (9.0-44.0); LYMPHOCYTE # 0.7 TH/MM3 (1.0-4.8); MEAN CELL VOLUME 90.1 FL (80.0-100.0); MEAN CORPUSCULAR HEMOGLOBIN 28.9 PG (27.0-34.0); MONO % 2.1 % (0.0-8.0); NEUT % 87.4 % (16.0-70.0); PLATELET COUNT 191 TH/MM3 (150-450); RED BLOOD COUNT 4.03 MIL/MM3 (4.50-5.90); RED CELL DISTRIBUTION WIDTH 16.9 % (11.6-17.2); WHITE BLOOD COUNT 8.6 TH/MM3 (4.0-11.0)
[2017-01-19 04:42] LABS: HEMO FLAGS DIFF FINAL; POTASSIUM 4.5 MEQ/L (3.5-5.1)
[2017-01-19 04:45] LABS: BICARBONATE 37.4 MEQ/L (21.0-32.0)
[2017-01-19] MEDS: ISOSORBIDE MONONITRATE 60 MG TAB PO SCH (06:26)
[2017-01-19] MEDS: INSULIN ASPART SUPPLEMENTAL SCALE SQ SCH ×4 (06:31→20:36)
--- NOTE | 2017-01-19 08:14 | HHI.PR ---
Subjective Remarks looks somewhat better today. now on oxygen via N/C. afebrile. denies any chest pain. d/w the RN. Objective Vitals Vital Signs Date Time Temp Pulse Resp B/P Pulse Ox O2 Delivery O2 Flow Rate FiO2 01/19/17 06:00 123 01/19/17 05:00 90 01/19/17 04:00 87 01/19/17 04:00 98.4 93 11 148/86 94 01/19/17 03:00 86 01/19/17 02:00 96 01/19/17 01:00 96 01/19/17 00:00 97.9 87 28 174/92 95 01/19/17 00:00 87 01/18/17 23:00 99 01/18/17 22:00 95 01/18/17 21:00 92 Nasal Cannula 4.00 01/18/17 21:00 99 01/18/17 20:30 94 Nasal Cannula 4.00 01/18/17 20:00 110 01/18/17 20:00 97.5 110 18 163/102 95 01/18/17 19:00 92 Bi-Pap 30 01/18/17 18:17 115 01/18/17 17:01 112 01/18/17 16:11 90 Bi-Pap 30 01/18/17 15:35 96 Bi-Pap 40 01/18/17 15:01 94 13 166/83 94 01/18/17 14:48 95 40 01/18/17 14:30 108 01/18/17 13:25 82 16 161/90 95 BiPAP 40 01/18/17 13:00 97.7 105 16 143/85 95 BiPAP 40 01/18/17 12:20 14 01/18/17 12:05 115 28 97 BiPAP 40 01/18/17 12:05 97 BiPAP 40 01/18/17 12:05 97.6 115 28 173/98 97 01/18/17 12:05 BiPAP 40 01/18/17 12:00 97 40 I/O 01/18/17 01/18/17 01/18/17 01/19/17 01/19/17 01/19/17 07:00 15:00 23:00 07:00 15:00 23:00 Intake Total 100 ml 1230 ml 580 ml Output Total 1500 ml 3075 ml 450 ml Balance -1400 ml -1845 ml 130 ml Intake Oral 360 ml 480 ml IV Total 100 ml 870 ml 100 ml Output Urine Total 1500 ml 3075 ml 450 ml # Bowel Movements 0 0 Result Diagram: 01/19/17 0359 01/19/17 0359 Imaging Last Impressions Chest X-Ray 01/18/17 1204 Signed Impressions: Service Date/Time: Wednesday, January 18, 2017 12:33 - CONCLUSION: Moderate congestive failure. Elvin Ba MD FACR Objective Remarks GENERAL: This is a well-nourished, well-developed patient, in no apparent distress. CARDIOVASCULAR: Regular rate and regular rhythm without murmurs, gallops, or rubs. RESPIRATORY: diminished air entry in bases GASTROINTESTINAL: Abdomen soft, non-tender, nondistended. Normal, active bowel sounds MUSCULOSKELETAL: Extremities without clubbing, cyanosis, or edema. NEURO: Alert & Oriented x4 to person, place, time, situation. Moves all ext x4 Medications and IVs Current Medications Sodium Chloride (NS Flush) 2 ml UNSCH PRN IVF FLUSH AFTER USING IV ACCESS; Start 01/18/17 at 12:15 Methylprednisolone Sodium Succinate (SoluMEDROL INJ) 125 mg ONCE ONCE IVP Last administered on 01/18/17 12:11; Start 01/18/17 at 12:15; Stop 01/18/17 at 12:16; Status DC Albuterol/ Ipratropium (Duoneb Neb) 1 ampule Q15M INH Last administered on 01/18 12:16; Start 01/18/17 at 12:15; Stop 01/18/17 at 12:46; Status DC Morphine Sulfate 5 mg 5 mg ONCE ONCE IV PUSH Last administered on 01/18/17 12 :11; Start 01/18/17 at 12:15; Stop 01/18/17 at 12:16; Status DC Ceftriaxone Sodium 1000 mg/ Sodium Chloride 100 ml @ 200 mls/hr ONCE ONCE IV Last administered on 01/18/17 13:32; Start 01/18/17 at 13:00; Stop 01/18/17 at 13:29; Status DC Azithromycin 500 mg/Sodium Chloride 250 ml @ 250 mls/hr ONCE ONCE IV Last administered on 01/18/17 14:19; Start 01/18/17 at 13:00; Stop 01/18/17 at 13:59 ; Status DC Vancomycin HCl 1000 mg/Sodium Chloride 250 ml @ 250 mls/hr Q24H IV ; Start at 14:15; Status UNV Pharmacy Profile Note 0 ml @ 0 mls/hr UNSCH OTHER ; Start 01/18/17 at 14:15 Cefepime HCl/ Sodium Chloride (Maxipime Inj/NS Inj) 100 ml @ 200 mls/hr Q8H IV Last administered on 01/18/17 23:32; Start 01/18/17 at 16:00 Albuterol/ Ipratropium (Duoneb Neb) 1 ampule Q4HR NEB NEB Last administered on 01/19/17 04:31; Start 01/18/17 at 16:00 Albuterol Sulfate (Albuterol Neb) 1.25 mg Q2HR NEB PRN NEB SHORTNESS OF BREATH ; Start 01/18/17 at 14:15 Furosemide (Lasix Inj) 40 mg DAILY IV PUSH Last administered on 01/18/17 15:35 ; Start 01/18/17 at 14:15 Methylprednisolone Sodium Succinate (SoluMEDROL INJ) 60 mg Q8H IV PUSH Last administered on 01/19/17 03:51; Start 01/18/17 at 20:00 Aspirin (Ecotrin Ec) 81 mg DAILY PO ; Start 01/19/17 at 09:00 Atorvastatin Calcium (Lipitor) 40 mg HS PO Last administered on 01/18/17 20:10 ; Start 01/18/17 at 21:00 Budesonide/ Formoterol Fumarate (Symbicort 160-4.5 Inh) 2 puff Q12HR INH Last administered on 01/18/17 20:10; Start 01/18/17 at 21:00 Diltiazem HCl (Cardizem) 30 mg QID PO Last administered on 01/18/17 20:10; Start 01/18/17 at 18:00 Gabapentin (Neurontin) 300 mg HS PO Last administered on 01/18/17 20:10; Start 01/18/17 at 21:00 Isosorbide Mononitrate (Imdur) 60 mg DAILY@07 PO Last administered on 06:26; Start 01/19/17 at 07:00 Metoprolol Tartrate (Lopressor) 12.5 mg BID PO Last administered on 01/18/17 20:10; Start 01/18/17 at 21:00 Potassium Chloride (KCl) 10 meq BID PO Last administered on 01/18/17 20:10; Start 01/18/17 at 21:00 Dextrose (D50w (Vial) Inj) 50 ml UNSCH PRN IV HYPOGLYCEMIA-SEE COMMENTS; Start 01/18/17 at 14:15 Glucagon (Glucagon Inj) 1 mg UNSCH PRN OTHER HYPOGLYCEMIA-SEE COMMENTS; Start 01/18/17 at 14:15 Insulin Aspart (NovoLOG SUPPLEMENTAL SCALE) 1 ACHS SLIDING SCALE SQ Last administered on 01/19/17 06:31; Start 01/18/17 at 16:00 Enoxaparin Sodium (Lovenox Inj) 40 mg Q24H SQ Last administered on 01/18/17 15 :35; Start 01/18/17 at 15:00 Pantoprazole Sodium 40 mg 40 mg DAILY PO ; Start 01/19/17 at 09:00 Vancomycin HCl/ Sodium Chloride (Vancomycin Inj/ NS 500 ml Inj) 519 ml @ 250 mls/hr DAILY@17 IV Last administered on 01/18/17 17:00; Start 01/18/17 at 17: 00 Miscellaneous Information SPECIFIC LAB TO BE DRAWN:VANCO TROUGH DATE TO... ONCE ONCE .XX ; Start 01/21/17 at 16:45; Stop 01/21/17 at 16:46 Acetaminophen/ Hydrocodone Bitart (Virgie 5-325 Mg) 1 tab ONCE ONCE PO Last administered on 01/18/17 23:33; Start 01/18/17 at 22:15; Stop 01/18/17 at 22:16 ; Status DC A/P Assessment and Plan A/P - acute on chronic hypercapnic respiratory failure due to COPD exacerbation and acute on chronic diastolic CHF keep on oxygen to keep O2 sat >90%.. continue with scheduled and PRN neb treatment. continue with IV steroid and IV diuretic. will check echo- consulted pulmonary and cardiology patient is oxygen-dependent. -sepsis due to possible pneumonia continue broad spectrum IV antibiotics and follow the cultures- pulmonary consult as noted above. -atrial fibrillation with rapid ventricular response resumed metoprolol and cardizem- continue to monitor- will consider cardizem drip if HR not controlled on PO meds. -acute kidney injury- improved will monitor renal function closely while on IV diuretic- -CAD- with mild elevation of troponin continue aspirin, metoprolol,imdur and statin- cardiac enzymes trend stable- cardiology evaluation as noted above. -hypertension; resumed home meds- will monitor and adjust the regimen as needed. -DVT prophylaxis with subq Lovenox. -DNR status per my d/w the patient. Tez Barnes MD Jan 19, 2017 08:14
[2017-01-19] MEDS: PANTOPRAZOLE SOD 40 MG DELAYED RELEASE TAB PO SCH (08:15)
[2017-01-19] MEDS: CEFEPIME INJ 2,000 MG in SODIUM CHLORIDE 0.9% INJ 100 ML IV SCH ×2 (08:15→15:19)
[2017-01-19] MEDS: DILTIAZEM HCL 30 MG TAB PO SCH (08:16)
[2017-01-19] MEDS: ASPIRIN EC 81 MG TABEC PO SCH (08:16)
[2017-01-19] MEDS: POTASSIUM CHLORIDE 10 MEQ CONTROLLED RELEASE TAB PO SCH ×2 (08:16→20:23)
[2017-01-19] MEDS: METOPROLOL TARTRATE 25 MG TAB PO SCH (08:16)
[2017-01-19] MEDS: FUROSEMIDE 40 MG/4 ML VIAL IV PUSH SCH (08:17)
[2017-01-19] MEDS: BUDESONIDE-FORMOTEROL 160/4.5 MCG INHALER INH SCH ×2 (08:18→20:23)
--- NOTE | 2017-01-19 08:32 | PD.CONS ---
HPI Service cv Consult Requested By Reason for Consult CHF Primary Care Physician [facility] History of Present Illness Here with CAD s/p IL X 2 (2001) coronary angiogram at that time did not show any stenosis amendable to intervention, atrial fibrillation, HTN and hyperlipidemia admitted for shortness of breath. He states yesterday he had increased shortnes of breath and orthopnea. He also complains of insomnia. He denies chest pain or palpitations. He is trying to quit smoking and says he smoked one pack over the last 3 months. He states he had a stress test 2 years ago. (Nilesh Main) Review of Systems Consitutional: DENIES: Fatigue, Fever, Chills, Weight gain, Weight loss Eyes: DENIES: Amaurosis Fugax, Change in vision HEENT: DENIES: Lightheadedness, Change in hearing Respiratory: COMPLAINS OF: Shortness of breath, DENIES: See HPI, Cough, Snoring, Wheezing, Sputum production Cardiovascular: COMPLAINS OF: See HPI Gastrointestinal: DENIES: Nausea, Vomiting, Change in bowel habits, Reflux, Bloody stools, Melena Genitourinary: DENIES: Urinary incontinence, Difficulty voiding Integumentary: DENIES: Rash Neurologic: DENIES: Tingling or numbness, Memory problems, Poor Balance, Stroke symptoms Musculoskeletal: COMPLAINS OF: Back pain, DENIES: Joint pain, Muscle pain, Limited range of motion Psychiatric: DENIES: Anxiety, Depression, Sleep disturbances Hematologic: DENIES: Bruising tendencies, Bleeding tendencies Endocrine: DENIES: Weight gain, Weight loss, Thyroid disease (Nilesh Main ) Past Family Social History Allergies: Coded Allergies: Lisinopril (Verified Allergy, Severe, Edema, 01/18/17) Simvastatin (Verified Allergy, Unknown, Unknown, 01/18/17) Past Medical History see HPI COPD Past Surgical History back surgery Reported Medications Reported Meds & Active Scripts Active Cardizem (Diltiazem HCl) 30 Mg Tab 30 Mg PO QID Albuterol Neb (Albuterol Sulfate) 2.5 Mg/3 Ml Neb 2.5 Mg NEB Q2HR NEB PRN Reported Lasix (Furosemide) 20 Mg Tab 20 Mg PO BID Prednisone 10 Mg Tab 10 Mg PO DAILY Lidocaine Patch 12 HR (Lidocaine) 5 % Patch 1 Patch TOPICAL DAILY Remove patch after 12 hours Flexeril (Cyclobenzaprine HCl) 5 Mg Tab 5 Mg PO TID PRN Humalog Cartridge Inj (Insulin Lispro (Human) Inj) 300 Unit/3 Ml Soln 2-10 Units SQ TIDAC PRN Symbicort Inh (Budesonide/Formoterol Fumarate) 160-4.5 Mcg/Act Aero 2 Puff INH Q12HR Duoneb (Ipratropium-Albuterol Neb) 0.5-2.5 Mg/3 Ml Neb 1 Nebule INH TID Ferrous Sulfate 325 Mg (65 Mg Iron) Tablet 325 Mg PO TIDPC Daily [place] (Multiple Vitamin) 1 Tab Tab 1 Tab PO DAILY Guaifenesin ER (Guaifenesin) 600 Mg Tab.er.12h 1 Tab PO BID Metoprolol Tartrate 25 Mg Tab 12.5 Mg PO BID [place] (Hydrocodone-Acetaminophen) 5-325 mg Tab 1 Tab PO Q6HR PRN Aspirin 81 (Aspirin) 81 Mg Tabdr 81 Mg PO DAILY Atorvastatin (Atorvastatin Calcium) 40 Mg Tab 40 Mg PO HS Isosorbide Mononitrate 20 Mg Tab 60 Mg PO DAILY Take 2 doses 7 hours apart. Klor-Con 10 (Potassium Chloride) 10 Meq Tab 10 Meq PO BID Gabapentin 300 Mg Cap 300 Mg PO HS Temazepam 15 Mg Cap 15 Mg PO HS Active Ordered Medications Current Medications Medications (Trade) Dose Ordered Sig/Theron Route Start Time Stop Time Status Last Admin Sodium Chloride 2 ml 2 ml UNSCH PRN IVF 01/18/17 12:15 Pharmacy Profile Note 0 ml @ 0 mls/hr UNSCH OTHER 01/18/17 14:15 (Maxipime Inj/NS Inj) 100 ml @ 200 mls/hr Q8H IV 01/18/17 16:00 01/18/17 23:32 (Lasix Inj) 40 mg DAILY IV PUSH 01/18/17 14:15 01/18/17 15:35 (SoluMEDROL INJ) 60 mg Q8H IV PUSH 01/18/17 20:00 01/19/17 03:51 (Ecotrin Ec) 81 mg DAILY PO 01/19/17 09:00 (Lipitor) 40 mg HS PO 01/18/17 21:00 01/18/17 20:10 (Symbicort 160-4.5 Inh) 2 puff Q12HR INH 01/18/17 21:00 01/18/17 20:10 (Cardizem) 30 mg QID PO 01/18/17 18:00 01/18/17 20:10 (Neurontin) 300 mg HS PO 01/18/17 21:00 01/18/17 20:10 (Imdur) 60 mg DAILY@07 PO 01/19/17 07:00 01/19/17 06:26 (Lopressor) 12.5 mg BID PO 01/18/17 21:00 01/18/17 20:10 (KCl) 10 meq BID PO 01/18/17 21:00 01/18/17 20:10 (D50w (Vial) Inj) 50 ml UNSCH PRN IV 01/18/17 14:15 (Glucagon Inj) 1 mg UNSCH PRN OTHER 01/18/17 14:15 (Lovenox Inj) 40 mg Q24H SQ 01/18/17 15:00 01/18/17 15:35 Pantoprazole Sodium 40 mg 40 mg DAILY PO 01/19/17 09:00 (Vancomycin Inj/ NS 500 ml Inj) 519 ml @ 250 mls/hr DAILY@17 IV 01/18/17 17:00 01/18/17 17:00 Miscellaneous Information SPECIFIC LAB TO BE DRAWN:VANCO TROUGH DATE TO... ONCE ONCE .XX 01/21/17 16:45 01/21/17 16:46 (Tylenol) 650 mg Q4H PRN PO 01/19/17 08:15 UNV ([place] 5-325 Mg) 1 tab Q4H PRN PO 01/19/17 08:15 UNV (Xanax) 0.25 mg Q8HR PRN PO 01/19/17 08:15 UNV Family History noncontributory Social History see HPI, denies EtOH or substance abuse (Nilesh Main) Physical Exam Vital Signs Vital Signs Date Time Temp Pulse Resp B/P Pulse Ox O2 Delivery O2 Flow Rate FiO2 01/19/17 06:00 123 01/19/17 05:00 90 01/19/17 04:00 87 01/19/17 04:00 98.4 93 11 148/86 94 01/19/17 03:00 86 01/19/17 02:00 96 01/19/17 01:00 96 01/19/17 00:00 97.9 87 28 174/92 95 01/19/17 00:00 87 01/18/17 23:00 99 01/18/17 22:00 95 01/18/17 21:00 92 Nasal Cannula 4.00 01/18/17 21:00 99 01/18/17 20:30 94 Nasal Cannula 4.00 01/18/17 20:00 110 01/18/17 20:00 97.5 110 18 163/102 95 01/18/17 19:00 92 Bi-Pap 30 01/18/17 18:17 115 01/18/17 17:01 112 01/18/17 16:11 90 Bi-Pap 30 01/18/17 15:35 96 Bi-Pap 40 01/18/17 15:01 94 13 166/83 94 01/18/17 14:48 95 40 01/18/17 14:30 108 01/18/17 13:25 82 16 161/90 95 BiPAP 40 01/18/17 13:00 97.7 105 16 143/85 95 BiPAP 40 01/18/17 12:20 14 01/18/17 12:05 115 28 97 BiPAP 40 01/18/17 12:05 97 BiPAP 40 01/18/17 12:05 97.6 115 28 173/98 97 01/18/17 12:05 BiPAP 40 01/18/17 12:00 97 40 Physical Exam GENERAL: Well-nourished, well-developed patient in no apparent distress. NECK: No JVD. No carotid bruit. CARDIOVASCULAR: IR IR S1/S2 no murmur, rub, or gallop. RESPIRATORY: No accessory muscle use. diminished to auscultation. Breath sounds equal bilaterally. GASTROINTESTINAL: Abdomen soft, non-tender, nondistended. MUSCULOSKELETAL: Extremities without clubbing, cyanosis, or edema. Laboratory Laboratory Tests Test 01/18/17 01/18/17 01/18/17 01/18/17 12:20 13:10 15:52 17:58 White Blood Count 21.4 Red Blood Count 4.01 Hemoglobin 11.6 Hematocrit 35.6 Mean Corpuscular Volume 88.6 Mean Corpuscular Hemoglobin 29.0 Mean Corpuscular Hemoglobin 32.8 Concent Red Cell Distribution Width 16.1 Platelet Count 245 Mean Platelet Volume 8.1 Neutrophils (%) (Auto) 72.8 Lymphocytes (%) (Auto) 12.2 Monocytes (%) (Auto) 9.6 Eosinophils (%) (Auto) 0.6 Basophils (%) (Auto) 4.8 Neutrophils # (Auto) 15.6 Lymphocytes # (Auto) 2.6 Monocytes # (Auto) 2.1 Eosinophils # (Auto) 0.1 Basophils # (Auto) 1.0 CBC Comment AUTO DIFF Differential Comment AUTO DIFF CONFIRMED Sodium Level 142 Potassium Level 4.7 Chloride Level 102 Carbon Dioxide Level 31.4 Anion Gap 9 Blood Urea Nitrogen 41 Creatinine 1.70 Estimat Glomerular Filtration 41 Rate Random Glucose 105 Calcium Level 9.4 Total Creatine Kinase 34 Troponin I 0.07 0.04 B-Type Natriuretic Peptide 253 Blood Gas Puncture Site LT RADIAL RT RADIAL Blood Gas Patient Temperature 98.6 37.0 Blood Gas HCO3 33 37 Blood Gas Base Excess 7.2 10.5 Blood Gas Oxygen Saturation 90 92 Arterial Blood pH 7.32 7.30 Arterial Blood Partial 67 77 Pressure CO2 Arterial Blood Partial 88 96 Pressure O2 Arterial Blood Oxygen Content 14.7 15.3 Arterial Blood 4.7 3.5 Carboxyhemoglobin Arterial Blood Methemoglobin 1.1 1.2 Blood Gas Hemoglobin 11.6 11.7 Oxygen Delivery Device BIPAP BIPAP Blood Gas Ventilator Setting IPAP15/ EPAP5 EPAP 5/IPAP 15 Blood Gas Inspired Oxygen 40 40 Test 01/19/17 01/19/17 00:00 03:59 Troponin I 0.04 White Blood Count 8.6 Red Blood Count 4.03 Hemoglobin 11.6 Hematocrit 36.3 Mean Corpuscular Volume 90.1 Mean Corpuscular Hemoglobin 28.9 Mean Corpuscular Hemoglobin 32.0 Concent Red Cell Distribution Width 16.9 Platelet Count 191 Mean Platelet Volume 8.8 Neutrophils (%) (Auto) 87.4 Lymphocytes (%) (Auto) 8.4 Monocytes (%) (Auto) 2.1 Eosinophils (%) (Auto) 0.6 Basophils (%) (Auto) 1.5 Neutrophils # (Auto) 7.5 Lymphocytes # (Auto) 0.7 Monocytes # (Auto) 0.2 Eosinophils # (Auto) 0.1 Basophils # (Auto) 0.1 CBC Comment DIFF FINAL Differential Comment Sodium Level 144 Potassium Level 4.5 Chloride Level 102 Carbon Dioxide Level 37.4 Anion Gap 5 Blood Urea Nitrogen 34 Creatinine 1.10 Estimat Glomerular Filtration 67 Rate Random Glucose 156 Calcium Level 9.1 Date/Time Procedure Status Source Growth 01/18/17 13:25 Aerobic Blood Culture Received Blood Peripheral Pending 01/18/17 13:25 Anaerobic Blood Culture Received Blood Peripheral Pending (Nilesh Main) Result Diagram: 01/19/1735801/19/17358 Assessment and Plan Problem List: (1) Chronic diastolic CHF (congestive heart failure) (2) HTN (hypertension) (3) A-fib Assessment and Plan Cardiac work up here shows CHF, troponin elevation x 1, we will get a Lexiscan SPECT and 2D echo and go from there. A-fib - rate control strategy. Increase metoprolol to 25 mg BID and monitor for wheezing CHF - continue Lasix IV daily (Nilesh Main) Assessment and Plan afib RVR - h/o COPD. DC BB. titrate CCB further. [id number] = 4. should be on anticoagulation. consider digoxin if SBP won't tolerate further titration of BB. SPECT today. if negative, consider starting anticoagulation with newer agent. CHF- multifactorial SOB. convert to PO diuretic tomorrow. await 2d echo. (Abdon Wakefield MD) Problem Qualifiers (1) A-fib: Qualified Code: I48.2 - Chronic atrial fibrillation Nilesh Main Jan 19, 2017 08:32 Abdon Wakefield MD Jan 19, 2017 08:47
[2017-01-19] MEDS ORDERED: ALPRAZolam 0.25 MG TAB PO PRN (09:00)
[2017-01-19] MEDS ORDERED: ACETAMINOPHEN 325 MG TAB PO PRN (09:00)
--- NOTE | 2017-01-19 09:01 | MB ---
cc: CHANTAL NEGRETE MOHAMMADREZA MD DATE OF CONSULTATION: 01/18/[address] Barnes REASON FOR CONSULTATION COPD exacerbation. HISTORY OF PRESENT ILLNESS Mr. Torre is a 66-year-old male with a longstanding history of COPD and chronic respiratory insufficiency. He uses oxygen at 2.5 liters nasal cannula. He has a history of COPD, congestive heart failure and coronary artery disease. He came to the hospital with worsening of his shortness of breath. He can walk a short distance but after that his back starts hurting and he has to stop. He did not have any cough or sputum production. No fever or chills. No night sweats. The patient was evaluated in the hospital. His blood gas shows pH 7.30, PCO2 77, PO2 96, bicarb 37. He used BiPAP briefly but is refusing BiPAP now. He is on nasal cannula maintaining oxygen saturation but sometimes he desaturates. His CBC showed WBC count 21.4, hemoglobin 11.6, hematocrit 35.6, MCV 88, platelet count 245. Sodium 142, potassium 4.7, chloride 102, CO2 31, BUN 41, creatinine 1.70. Troponin 0.07. His chest x-ray shows he has moderate congestive heart failure. PAST MEDICAL HISTORY 1. Congestive heart failure. 2. Coronary artery disease; had two heart attacks. 3. COPD. 4. Chronic back pain. MEDICATIONS He is currently takin. Aspirin 81 mg a day. 2. Protonix 40 mg a day. 3. Imdur 60 mg a day. 4. Lipitor 40 mg a day. 5. Symbicort 160-4.5, two puffs twice a day. 6. Neurontin 300 mg at nighttime. 7. Metoprolol 12.5 mg twice a day. 8. Potassium 10 mEq twice a day. 9. Solu-Medrol 60 mg q.8h. 10.Diltiazem 30 mg q.i.d. 11.Solu-Medrol 60 mg q.8h. 12.Vancomycin IV. 13.Cefepime IV q.8h. 14.Albuterol/Atrovent nebulizer treatment. 15.Lovenox 40 mg q.8h. 16.Lasix 40 mg a day. ALLERGIES 1. LISINOPRIL. 2. SIMVASTATIN. SOCIAL HISTORY He is a . He used to work in [id number]. He has a long history of smoking two packs a day, which he quit 3 months ago. No alcohol abuse. FAMILY HISTORY He is single, is a , lives alone. He has no children. REVIEW OF SYSTEMS He walks only a short distance. No headache or dizziness. No nausea or vomiting. No malignancy. PHYSICAL EXAMINATION GENERAL: A well-built, well-nourished elderly male mildly short of breath. VITAL SIGNS: Blood pressure 166/83, heart rate 112, respirations 18, temperature 98. HEENT: Pupils are equal and reactive. Oral mucosal and nasal mucosa normal. NECK: Supple. JVP not raised. CHEST: He has basilar rales. CV: S1, S2 normal. ABDOMEN: Benign. EXTREMITIES: 1+ pedal edema. IMPRESSION 1. Hypercapnic respiratory insufficiency. 2. COPD with exacerbation. 3. Congestive heart failure. 4. Bronchitis. 5. Chronic back pain. PLAN I discussed with the patient he has not been using CPAP machine and refuses CPAP machine. I advised him that CPAP will prevent him from requiring ventilator He refuses to use CPAP and does not want any intubation. he states "send me home and let me at home." Will supplement his oxygen, continue aerosol treatment, continue antibiotics and Lovenox. Further treatment will depend on the course in the hospital. Thank you Dr. Barnes for this consult. MD RENÉ Pool/NICA /8:00 PM /8:38 AM [facility] CENTERStephon
[2017-01-19] MEDS: ACETAMINOPHEN/HYDROcodone 325 MG/5 MG TAB PO PRN ×2 (09:04→18:35)
[2017-01-19] MEDS: DILTIAZEM HCL 60 MG TAB PO SCH ×3 (12:00→18:35)
--- NOTE | 2017-01-19 12:25 | EKG ---
Date Performed: 01/18/2017 Time Performed: 12:09:18 PTAGE: 66 years EKG: ATRIAL FIBRILLATION WITH increase VENTRICULAR rate Baseline artifact noted making it substa ndard for interpretation Compared to prior tracing no significant change ABNORMAL ECG PREVIOUS TRACING : 12/13/2016 10.23 DOCTOR: Akira Power Interpretating Date/Time 01/19/2017 12:24:12
--- NOTE | 2017-01-19 12:26 | EKG ---
Date Performed: 01/18/2017 Time Performed: 13:34:09 PTAGE: 66 years EKG: ATRIAL FIBRILLATION WITH RAPID VENTRICULAR RESPONSE NONSPECIFIC T-WAVE ABNORMALITY Compared to prior tracing no significant change ABNORMAL RHYTHM ECG PREVIOUS TRACING : 01/18/2017 12.09 DOCTOR: Akira Power Interpretating Date/Time 01/19/2017 12:24:54
--- NOTE | 2017-01-19 13:13 | ECHRPT ---
Indication: HEART FAILURE CONCLUSIONS Normal left ventricular size. Mild concentric left ventricular hypertrophy. The left ventricular systolic function is moderately reduced with an estimated ejection fraction in the range of 40-45%. The left atrial size is moderate dilated. The right atrial size is mildly dilated. BP: / HR: Rhythm: MEASUREMENTS (Male / Female) Normal Values Technical Quality: 2D ECHO LVOT Diameter 2.2 cm Aortic Root Diameter 2.9 cm DOPPLER AV Peak Velocity 125.0 cm/s AV Peak Gradient 6.3 mmHg AV Mean Gradient 4.0 mmHg AV Velocity Time Integral 23.3 cm LVOT Peak Velocity 59.2 cm/s LVOT Peak Gradient 1.4 mmHg LVOT Velocity Time Integral 11.1 cm AV Area Cont Eq vti 1.8 cm AV Area Cont Eq pk 1.8 cm Mitral E Point Velocity 114.5 cm/s LV E' Lateral Velocity 9.1 cm/s Mitral E to LV E' Lateral Ratio 12.6 LV E' Septal Velocity 10.4 cm/s Mitral E to LV E' Septal Ratio 11.0 FINDINGS LEFT VENTRICLE Normal left ventricular size. Mild concentric left ventricular hypertrophy. The left ventricular systolic function is moderately reduced with an estimated ejection fraction in the range of 40-45%. RIGHT VENTRICLE Normal right ventricular size and systolic function. LEFT ATRIUM The left atrial size is moderate dilated. RIGHT ATRIUM The right atrial size is mildly dilated. ATRIAL SEPTUM Normal atrial septal thickness without atrial level shunting by limited color doppler interrogation. AORTA The aortic root and proximal ascending aorta are normal in size on limited imaging. MITRAL VALVE Structurally normal mitral valve. No mitral valve stenosis or regurgitation. AORTIC VALVE Trileaflet aortic valve. No aortic valve stenosis or regurgitation. TRICUSPID VALVE Structurally normal tricuspid valve. No tricuspid valve stenosis or regurgitation. PULMONARY VALVE The pulmonary valve is not well visualized. VESSELS The inferior vena cava is normal in size. There is greater than 50% respiratory change in dimension of the inferior vena cava (normal). PERICARDIUM No pericardial effusion. Abdon Wakefield MD, FACC (Electronically Signed) Final Date:19 January 2017 13:12
[2017-01-19 14:20] LABS: BLOOD GAS BASE EXCESS 13.2 mmol/L (-2-2); BLOOD GAS CARBOXYHEMOGLOBIN 1.8 % (0-4); BLOOD GAS HCO3 38 mmol/L (22-26); BLOOD GAS METHEMOGLOBIN 1.2 % (0-2); BLOOD GAS O2 HGB SATURATION 90 % (90-100); BLOOD GAS OXYGEN CONTENT 13.9 Vol % (12.0-20.0); BLOOD GAS PCO2 51 mmHg (38-42); BLOOD GAS PO2 65 mmHg (61-120)
[2017-01-19 14:22] LABS: CRITICAL VALUE YES; DRAW SITE LT RADIAL; LITER FLOW 3 L/M; NUMBER OF ARTERIAL PUNCTURES 1; OXYGEN DEVICE NASAL CANNULA; STAT NO; ULNAR PULSE PRESENT
[2017-01-19] MEDS: ENOXAPARIN SODIUM 40 MG/0.4 ML SYRINGE SQ SCH (15:19)
[2017-01-19] MEDS: ALPRAZolam 0.5 MG TAB PO PRN ×2 (15:19→20:23)
[2017-01-19] MEDS: VANCOMYCIN INJ 1,900 MG in SODIUM CHLORID 0.9% 500 ML INJ 500 ML IV SCH (18:36)
--- NOTE | 2017-01-19 19:38 | HHI.PR ---
Subjective Remarks 66 YOWM with COPD exac, Hypercapnoic Resp insuff Refuses to Use CPAP On NC Denies CP Objective Vital Signs Vital Signs Date Time Temp Pulse Resp B/P Pulse Ox O2 Delivery O2 Flow Rate FiO2 01/19/17 18:00 117 01/19/17 17:00 104 01/19/17 17:00 104 20 93 01/19/17 16:00 116 26 137/86 92 01/19/17 16:00 108 01/19/17 15:45 100 01/19/17 15:24 116 01/19/17 15:00 96 15 91 01/19/17 14:45 106 01/19/17 14:00 114 32 92 01/19/17 13:45 110 01/19/17 13:15 92 Nasal Cannula 3.00 01/19/17 13:00 108 20 91 01/19/17 12:45 124 01/19/17 12:00 154 26 85 01/19/17 12:00 116 01/19/17 11:44 98.8 110 29 143/82 92 01/19/17 11:00 91 01/19/17 11:00 112 91 01/19/17 11:00 112 01/19/17 10:00 140 88 01/19/17 10:00 140 01/19/17 10:00 88 01/19/17 09:29 93 Nasal Cannula 4.00 01/19/17 09:00 95 01/19/17 09:00 95 01/19/17 08:00 95 01/19/17 08:00 96 16 95 01/19/17 08:00 96 16 95 01/19/17 08:00 96 01/19/17 07:15 95 01/19/17 07:15 102 01/19/17 07:15 98.4 102 20 152/70 95 01/19/17 06:00 123 01/19/17 05:00 90 01/19/17 04:00 87 01/19/17 04:00 98.4 93 11 148/86 94 01/19/17 03:00 86 01/19/17 02:00 96 01/19/17 01:00 96 01/19/17 00:00 97.9 87 28 174/92 95 01/19/17 00:00 87 01/18/17 23:00 99 01/18/17 22:00 95 01/18/17 21:00 92 Nasal Cannula 4.00 01/18/17 21:00 99 01/18/17 20:30 94 Nasal Cannula 4.00 01/18/17 20:00 110 01/18/17 20:00 97.5 110 18 163/102 95 I/O 01/18/17 01/18/17 01/18/17 01/19/17 01/19/17 01/19/17 07:00 15:00 23:00 07:00 15:00 23:00 Intake Total 100 ml 1230 ml 580 ml 1550 ml Output Total 1500 ml 3075 ml 450 ml 1256 ml Balance -1400 ml -1845 ml 130 ml 294 ml Intake Oral 360 ml 480 ml 1440 ml IV Total 100 ml 870 ml 100 ml 110 ml Output Urine Total 1500 ml 3075 ml 450 ml 1256 ml # Bowel Movements 0 0 Result Diagram: 01/19/17 0359 01/19/17 0359 Objective Remarks GENERAL: WBWN WM, mild sob SKIN: Warm and dry. HEAD: Normocephalic. EYES: No scleral icterus. No injection or drainage. NECK: Supple, trachea midline. No JVD or lymphadenopathy. CARDIOVASCULAR: Regular rate and rhythm without murmurs, gallops, or rubs. RESPIRATORY: Breath sounds equal bilaterally. No accessory muscle use. GASTROINTESTINAL: Abdomen soft, non-tender, nondistended. MUSCULOSKELETAL: No cyanosis, or edema. BACK: Nontender without obvious deformity. No CVA tenderness. A/P Assessment and Plan Hypercapnoic Resp insuff COPD exac AF CHF HTN PLAN: IV Solumedrol Aerosol nebs Cont Abx SQ Lovenox Isosorbide Cardiac clement underway. Mariano Cheema MD Jan 19, 2017 19:38
[2017-01-19] MEDS: ATORVASTATIN 40 MG TAB PO SCH (20:23)
[2017-01-19] MEDS: GABAPENTIN 300 MG CAP PO SCH (20:23)
[2017-01-20] VITALS (18 sets, daily range): BP systolic 144–166; BP diastolic 72–98; PULSE 83–126; RESP 12–22; TEMP 97.5–98.2; O2SAT 91–94
[2017-01-20] MEDS: DILTIAZEM HCL 60 MG TAB PO SCH ×3 (00:04→15:02)
[2017-01-20] MEDS: CEFEPIME INJ 2,000 MG in SODIUM CHLORIDE 0.9% INJ 100 ML IV SCH ×2 (00:04→09:30)
[2017-01-20] MEDS: ACETAMINOPHEN/HYDROcodone 325 MG/5 MG TAB PO PRN ×4 (00:05→15:04)
[2017-01-20] MEDS: ALPRAZolam 0.5 MG TAB PO PRN ×3 (04:00→16:02)
[2017-01-20] MEDS: methylPREDNISolone SOD SUCC 40 MG/1 ML VIAL IV PUSH SCH ×2 (04:00→15:03)
[2017-01-20] MEDS: RESP: ALBUTEROL 2.5 MG/IPRATROPIUM 0.5 MG NEB (SCH) NEB ×4 (04:26→15:32)
[2017-01-20 05:12] LABS: BASOPHIL # 0.2 TH/MM3 (0-0.2); BASOPHIL % 1.6 % (0.0-2.0); HEMATOCRIT 37.9 % (39.0-51.0); LYMPH % 5.3 % (9.0-44.0); LYMPHOCYTE # 0.7 TH/MM3 (1.0-4.8); MEAN CORPUSCULAR HEMOGLOBIN 28.4 PG (27.0-34.0); MONO % 1.2 % (0.0-8.0); NEUT % 91.9 % (16.0-70.0); PLATELET COUNT 187 TH/MM3 (150-450); RED BLOOD COUNT 4.26 MIL/MM3 (4.50-5.90); RED CELL DISTRIBUTION WIDTH 16.6 % (11.6-17.2); WHITE BLOOD COUNT 14.1 TH/MM3 (4.0-11.0)
[2017-01-20 05:14] LABS: POTASSIUM 4.6 MEQ/L (3.5-5.1)
[2017-01-20 05:33] LABS: BICARBONATE 35.6 MEQ/L (21.0-32.0)
[2017-01-20 05:37] LABS: HEMO FLAGS DIFF FINAL
[2017-01-20] MEDS: ISOSORBIDE MONONITRATE 60 MG TAB PO SCH (06:22)
[2017-01-20] MEDS: INSULIN ASPART SUPPLEMENTAL SCALE SQ SCH ×3 (06:23→14:19)
--- NOTE | 2017-01-20 07:51 | PD.CARD.PN ---
Subjective Subjective Remarks denies chest pain Objective Vital Signs / I&O Vital Signs Date Time Temp Pulse Resp B/P Pulse Ox O2 Delivery O2 Flow Rate FiO2 01/20/17 07:10 92 Nasal Cannula 2.50 01/20/17 06:00 84 01/20/17 05:00 87 01/20/17 05:00 13 01/20/17 04:00 86 01/20/17 04:00 97.5 92 18 156/89 94 01/20/17 03:00 83 01/20/17 02:00 85 01/20/17 01:00 93 01/20/17 00:00 93 01/19/17 23:00 97.8 93 14 162/80 95 01/19/17 23:00 87 01/19/17 22:00 86 01/19/17 21:00 86 01/19/17 20:05 94 Nasal Cannula 3.00 01/19/17 20:00 99.1 92 27 165/75 92 01/19/17 20:00 86 01/19/17 19:00 92 01/19/17 19:00 92 Nasal Cannula 4.00 01/19/17 18:00 117 01/19/17 17:00 104 01/19/17 17:00 104 20 93 01/19/17 16:00 116 26 137/86 92 01/19/17 16:00 108 01/19/17 15:45 100 01/19/17 15:24 116 01/19/17 15:00 96 15 91 01/19/17 14:45 106 01/19/17 14:00 114 32 92 01/19/17 13:45 110 01/19/17 13:15 92 Nasal Cannula 3.00 01/19/17 13:00 108 20 91 01/19/17 12:45 124 01/19/17 12:00 154 26 85 01/19/17 12:00 116 01/19/17 11:44 98.8 110 29 143/82 92 01/19/17 11:00 91 01/19/17 11:00 112 91 01/19/17 11:00 112 01/19/17 10:00 140 88 01/19/17 10:00 140 01/19/17 10:00 88 01/19/17 09:29 93 Nasal Cannula 4.00 01/19/17 09:00 01/19/17 09:00 95 01/19/17 08:00 95 01/19/17 08:00 96 16 95 01/19/17 08:00 96 16 01/19/17 08:00 96 I/O 01/19/17 01/19/17 01/19/17 01/20/17 01/20/17 01/20/17 07:00 15:00 23:00 07:00 15:00 23:00 Intake Total 580 ml 1550 ml 130 ml Output Total 450 ml 1256 ml 500 ml Balance 130 ml 294 ml -370 ml Intake Oral 480 ml 1440 ml 30 ml IV Total 100 ml 110 ml 100 ml Output Urine Total 450 ml 1256 ml 500 ml # Bowel Movements 0 0 Physical Exam GENERAL: Well-nourished, well-developed patient in no apparent distress. NECK: No JVD. No carotid bruit. CARDIOVASCULAR: IR IR. S1/S2 no murmur, rub, or gallop. RESPIRATORY: No accessory muscle use. Clear to auscultation. Breath sounds equal bilaterally. GASTROINTESTINAL: Abdomen soft, non-tender, nondistended. MUSCULOSKELETAL: Extremities without clubbing, cyanosis, or edema. Laboratory Laboratory Tests Test 01/19/17 01/20/17 14:12 04:15 Blood Gas Puncture Site LT RADIAL Blood Gas Patient Temperature 37.0 Blood Gas HCO3 38 mmol/L Blood Gas Base Excess 13.2 mmol/L Blood Gas Oxygen Saturation 90 % Arterial Blood pH 7.48 Arterial Blood Partial 51 mmHg Pressure CO2 Arterial Blood Partial 65 mmHg Pressure O2 Arterial Blood Oxygen Content 13.9 Vol % Arterial Blood 1.8 % Carboxyhemoglobin Arterial Blood Methemoglobin 1.2 % Blood Gas Hemoglobin 11.0 G/DL Oxygen Delivery Device NASAL CANNULA Blood Gas Liter Flow 3 L/M White Blood Count 14.1 TH/MM3 Red Blood Count 4.26 MIL/MM3 Hemoglobin 12.1 GM/DL Hematocrit 37.9 % Mean Corpuscular Volume 89.0 FL Mean Corpuscular Hemoglobin 28.4 PG Mean Corpuscular Hemoglobin 32.0 % Concent Red Cell Distribution Width 16.6 % Platelet Count 187 TH/MM3 Mean Platelet Volume 9.5 FL Neutrophils (%) (Auto) 91.9 % Lymphocytes (%) (Auto) 5.3 % Monocytes (%) (Auto) 1.2 % Eosinophils (%) (Auto) 0.0 % Basophils (%) (Auto) 1.6 % Neutrophils # (Auto) 13.0 TH/MM3 Lymphocytes # (Auto) 0.7 TH/MM3 Monocytes # (Auto) 0.2 TH/MM3 Eosinophils # (Auto) 0.0 TH/MM3 Basophils # (Auto) 0.2 TH/MM3 CBC Comment DIFF FINAL Differential Comment Sodium Level 141 MEQ/L Potassium Level 4.6 MEQ/L Chloride Level 100 MEQ/L Carbon Dioxide Level 35.6 MEQ/L Anion Gap 5 MEQ/L Blood Urea Nitrogen 33 MG/DL Creatinine 1.10 MG/DL Estimat Glomerular Filtration 67 ML/MIN Rate Random Glucose 174 MG/DL Calcium Level 10.0 MG/DL Assessment and Plan Problem List: (1) Chronic diastolic CHF (congestive heart failure) (2) HTN (hypertension) (3) A-fib Assessment and Plan Cardiac work up shows CHF and cardiomyopathy of uncertain etiology, Lexiscan SPECT pending A-fib - rate control strategy. controlled on diltiazem cardiomyopathy/CHF - continue Lasix IV daily Problem Qualifiers (1) A-fib: Qualified Code: I48.2 - Chronic atrial fibrillation Nilesh Main Jan 20, 2017 07:51
[2017-01-20] MEDS: BUDESONIDE-FORMOTEROL 160/4.5 MCG INHALER INH SCH (09:29)
[2017-01-20] MEDS: PANTOPRAZOLE SOD 40 MG DELAYED RELEASE TAB PO SCH (09:30)
[2017-01-20] MEDS: ASPIRIN EC 81 MG TABEC PO SCH (09:30)
[2017-01-20] MEDS: POTASSIUM CHLORIDE 10 MEQ CONTROLLED RELEASE TAB PO SCH (09:31)
[2017-01-20] MEDS: FUROSEMIDE 40 MG/4 ML VIAL IV PUSH SCH (09:31)
[2017-01-20] MEDS ORDERED: REGADENOSON INJ 0.4 MG/5 ML SYR IV ONE (11:38)
[2017-01-20] MEDS ORDERED: VANCOMYCIN INJ 2,000 MG in SODIUM CHLORID 0.9% 500 ML INJ 500 ML IV SCH (12:00)
[2017-01-20] MEDS: ENOXAPARIN SODIUM 40 MG/0.4 ML SYRINGE SQ SCH (16:03)
--- NOTE | 2017-01-20 16:24 | HHI.PR ---
Subjective Remarks 66 YOWM with COPD exac, Hypercapnoic Resp insuff Refuses to Use CPAP On NC Denies CP Anxious to go home Does't like being here ' If I get worse, I will go to [facility]" Objective Vital Signs Vital Signs Date Time Temp Pulse Resp B/P Pulse Ox O2 Delivery O2 Flow Rate FiO2 01/20/17 15:00 98.2 108 22 166/98 92 01/20/17 15:00 105 01/20/17 14:00 108 01/20/17 13:00 126 01/20/17 11:16 90 12 144/72 93 01/20/17 11:00 96 01/20/17 10:00 96 01/20/17 09:00 94 18 159/94 93 01/20/17 08:00 97.8 94 15 163/84 91 01/20/17 08:00 90 Nasal Cannula 2.50 01/20/17 08:00 88 01/20/17 07:10 92 Nasal Cannula 2.50 01/20/17 06:00 84 01/20/17 05:00 87 01/20/17 05:00 13 01/20/17 04:00 86 01/20/17 04:00 97.5 92 18 156/89 94 01/20/17 03:00 83 01/20/17 02:00 85 01/20/17 01:00 93 01/20/17 00:00 93 01/19/17 23:00 97.8 93 14 162/80 95 01/19/17 23:00 87 01/19/17 22:00 86 01/19/17 21:00 86 01/19/17 20:05 94 Nasal Cannula 3.00 01/19/17 20:00 99.1 92 27 165/75 92 01/19/17 20:00 86 01/19/17 19:00 92 01/19/17 19:00 92 Nasal Cannula 4.00 01/19/17 18:00 117 01/19/17 17:00 104 01/19/17 17:00 104 20 93 I/O 01/19/17 01/19/17 01/19/17 01/20/17 01/20/17 01/20/17 07:00 15:00 23:00 07:00 15:00 23:00 Intake Total 580 ml 1550 ml 130 ml Output Total 450 ml 1256 ml 500 ml Balance 130 ml 294 ml -370 ml Intake Oral 480 ml 1440 ml 30 ml IV Total 100 ml 110 ml 100 ml Output Urine Total 450 ml 1256 ml 500 ml # Bowel Movements 0 0 Result Diagram: 01/20/1741401/20/17414 Objective Remarks GENERAL: WBWN WM, mild sob SKIN: Warm and dry. HEAD: Normocephalic. EYES: No scleral icterus. No injection or drainage. NECK: Supple, trachea midline. No JVD or lymphadenopathy. CARDIOVASCULAR: Regular rate and rhythm without murmurs, gallops, or rubs. RESPIRATORY: Breath sounds equal bilaterally. No accessory muscle use. GASTROINTESTINAL: Abdomen soft, non-tender, nondistended. MUSCULOSKELETAL: No cyanosis, or edema. BACK: Nontender without obvious deformity. No CVA tenderness. A/P Assessment and Plan Hypercapnoic Resp insuff COPD exac AF CHF HTN PLAN: Dc Solumedrol pred 10 mg bid Aerosol nebs Cont Abx SQ Lovenox Isosorbide Cardiac clement underway. Mariano Cheema MD Jan 20, 2017 16:24
--- NOTE | 2017-01-20 17:03 | RADRPT ---
EXAM DATE/TIME: 01/20/2017 11:49 [place] COMPARISON: No previous studies available for comparison. INDICATIONS : Dyspnea. Coronary artery disease. DOSE: 31.2 mCi Tc99m Myoview at stress. 10.3 mCi Tc99m Myoview at rest. 0.4 mg Lexiscan STRESS SYMPTOMS: Dyspnea. EJECTION FRACTION: 58% MEDICAL HISTORY : Myocardial infarction. Congestive heart failure. Chronic obstructive pulmonary disease. Hypercholeste rolemia. Hypertension. Smoker. SURGICAL HISTORY : CABG laminectomy. Cardiac catherization. ENCOUNTER: Initial ACUITY: 2 days PAIN SCALE: 0/10 LOCATION: chest TECHNIQUE: The patient underwent pharmacologic stress with infusion of prescribed dose. Continuous ECG tracing was monitored during stress. Gated SPECT imaging was performed after stress and conventional SPECT i maging was performed at rest. The examination was performed on a SPECT/CT scanner, both attenuation and non-corrected datasets were reviewed. FINDINGS: DISTRIBUTION: The maximum perfused segment at stress is in the anterolateral wall. PERFUSION STUDY: The pattern of perfusion at stress is within normal limits. GATED STUDY: There is intact wall motion and thickening without hypokinetic or dyskinetic segments. CONCLUSION: No significant fixed or reversible perfusion abnormalities. Satisfactory LV function. RISK CATEGORY: Low (<1% Annual Mortality Rate) Henrry Torres MD on January 20, 2017 at 16:58 Board Certified Radiologist. This report was verified electronically.
[2017-01-20] MEDS ORDERED: DILT60TA33 PO (17:07)
--- NOTE | 2017-01-20 17:08 | HHI.DCPOC ---
Discharge Care Plan Diagnosis: (1) Chronic diastolic CHF (congestive heart failure) (2) A-fib (3) COPD (chronic obstructive pulmonary disease) Goals to Promote Your Health * To prevent worsening of your condition and complications * To maintain your health at the optimal level Directions to Meet Your Goals Take your medications as prescribed Follow your dietary instruction Follow activity as directed Keep your appointments as scheduled Take your immunizations and boosters as scheduled If your symptoms worsen call your PCP, if no PCP go to Urgent Care Center or Emergency Room Smoking is Dangerous to Your Health. Avoid second hand smoke Call the 24-hour hour crisis hotline for domestic abuse at Sarbjit Mendes DO Jan 20, 2017 17:08
--- NOTE | 2017-01-20 17:09 | PD.AMA ---
Against Medical Advice Note Diagnosis: (1) COPD (chronic obstructive pulmonary disease) (2) Acute respiratory failure with hypoxemia (3) CHF (congestive heart failure) (4) Chronic diastolic CHF (congestive heart failure) (5) A-fib Discharge Disposition: Against Medical Advice Pt Condition on Discharge: Stable Recommended Treatment Course Continue to receive diuresis, antibiotics and further cardiac workup. AMA Statement Patient Jl Torre has decided to leave the hospital against medical advice. This patient has the capacity to refuse care and understands the risks of leaving, including permanent disability and/or , and has had an opportunity to ask questions about his condition. The patient has been informed that he may return for care at any time, and follow up has been arranged/advised. Sarbjit Mendes DO Jan 20, 2017 17:09
--- NOTE | 2017-01-20 17:23 | HHI.DS ---
Discharge Summary Admission Date Jan 18, 2017 at 13:51 Discharge Date: Jan 20, 2017 Admitting Diagnosis CHF Exacerbation; Poss PNA (1) CHF (congestive heart failure) ICD Code: I50.9 Diagnosis: Principal (2) COPD (chronic obstructive pulmonary disease) ICD Code: J44.9 Diagnosis: Principal (3) Hypercapnic respiratory failure ICD Code: J96.92 Diagnosis: Principal (4) A-fib ICD Code: I48.91 Procedures None Brief History - From Admission patient is a 66 y/o male with history of CAD, CHF,hypertension and COPD- on home oxygen, chronic smoker, who presented to ER with worsening shortness of breath. he says that his sob started yesterday and gradually got worse. he denies any fever, chills, or productive cough. but he mentions that his legs are more swollen despite taking his lasix. he was placed on BiPaP at the time of arrival to ER. at the time of my evaluation, he was still on BiPaP with some sob. he denies any chest pain. he says that he stopped smoking but he started again. he was discharged from the rehab about three weeks ago. CBC/BMP: 01/20/17 0415 01/20/17 0415 Significant Findings Laboratory Tests Test 01/18/17 01/18/17 01/18/17 01/19/17 12:20 13:10 15:52 03:59 White Blood Count 21.4 TH/MM3 (4.0-11.0) Red Blood Count 4.01 MIL/MM3 4.03 MIL/MM3 (4.50-5.90) (4.50-5.90) Hemoglobin 11.6 GM/DL 11.6 GM/DL (13.0-17.0) (13.0-17.0) Hematocrit 35.6 % 36.3 % (39.0-51.0) (39.0-51.0) Neutrophils (%) (Auto) 72.8 % 87.4 % (16.0-70.0) (16.0-70.0) Monocytes (%) (Auto) 9.6 % (0.0-8.0) Basophils (%) (Auto) 4.8 % (0.0-2.0) Neutrophils # (Auto) 15.6 TH/MM3 (1.8-7.7) Monocytes # (Auto) 2.1 TH/MM3 (0-0.9) Basophils # (Auto) 1.0 TH/MM3 (0-0.2) Blood Urea Nitrogen 41 MG/DL (7-18) 34 MG/DL (7-18) Creatinine 1.70 MG/DL (0.60-1.30) Estimat Glomerular Filtration 41 ML/MIN (>89) 67 ML/MIN (>89) Rate Total Creatine Kinase 34 U/L (39-308) Troponin I 0.07 NG/ML (0.02-0.05) B-Type Natriuretic Peptide 253 PG/ML (0-100) Blood Gas HCO3 33 mmol/L 37 mmol/L (22-26) (22-26) Blood Gas Base Excess 7.2 mmol/L 10.5 mmol/L (-2-2) (-2-2) Arterial Blood pH 7.32 7.30 (7.380-7.420) (7.380-7.420) Arterial Blood Partial 67 mmHG (38-42) 77 mmHg (38-42) Pressure CO2 Arterial Blood 4.7 % (0-4) Carboxyhemoglobin Blood Gas Hemoglobin 11.6 G/DL 11.7 G/DL (12.0-16.0) (12.0-16.0) Lymphocytes (%) (Auto) 8.4 % (9.0-44.0) Lymphocytes # (Auto) 0.7 TH/MM3 (1.0-4.8) Carbon Dioxide Level 37.4 MEQ/L (21.0-32.0) Random Glucose 156 MG/DL (74-106) Test 01/19/17 01/20/17 14:12 04:15 Blood Gas HCO3 38 mmol/L (22-26) Blood Gas Base Excess 13.2 mmol/L (-2-2) Arterial Blood pH 7.48 (7.380-7.420) Arterial Blood Partial 51 mmHg (38-42) Pressure CO2 Blood Gas Hemoglobin 11.0 G/DL (12.0-16.0) White Blood Count 14.1 TH/MM3 (4.0-11.0) Red Blood Count 4.26 MIL/MM3 (4.50-5.90) Hemoglobin 12.1 GM/DL (13.0-17.0) Hematocrit 37.9 % (39.0-51.0) Neutrophils (%) (Auto) 91.9 % (16.0-70.0) Lymphocytes (%) (Auto) 5.3 % (9.0-44.0) Neutrophils # (Auto) 13.0 TH/MM3 (1.8-7.7) Lymphocytes # (Auto) 0.7 TH/MM3 (1.0-4.8) Carbon Dioxide Level 35.6 MEQ/L (21.0-32.0) Blood Urea Nitrogen 33 MG/DL (7-18) Estimat Glomerular Filtration 67 ML/MIN (>89) Rate Random Glucose 174 MG/DL (74-106) Imaging Last Impressions Myocardial Perfusion Scan Nuc Med 01/20/17 0000 Signed Impressions: Service Date/Time: Friday, January 20, 2017 11:49 - CONCLUSION: No significant fixed or reversible perfusion abnormalities. Satisfactory LV function. RISK CATEGORY: Low (<1%% Annual Mortality Rate) Henrry Torres MD Chest X-Ray 01/18/17 1204 Signed Impressions: Service Date/Time: Wednesday, January 18, 2017 12:33 - CONCLUSION: Moderate congestive failure. Elvin Ba MD FACR PE at Discharge GENERAL: This is a well-nourished, well-developed patient, in no apparent distress. CARDIOVASCULAR: Regular rate and regular rhythm without murmurs, gallops, or rubs. RESPIRATORY: diminished air entry in bases GASTROINTESTINAL: Abdomen soft, non-tender, nondistended. Normal, active bowel sounds MUSCULOSKELETAL: Extremities without clubbing, cyanosis, or edema. NEURO: Alert & Oriented x4 to person, place, time, situation. Moves all ext x4 PSYCH: Agitated Pt update on day of discharge The pt wants to leave the hospital. He understands the risk of leaving the hospital too soon before his work-up has been completed. Hospital Course Acute on chronic hypercapnic respiratory failure Due to COPD exacerbation and acute on chronic diastolic CHF. He was kept on oxygen to keep O2 sat >90%. He was continued with scheduled and PRN neb treatments. He received steroids and diuresis. Echo with reduced ejection fraction. Cardiology and pulmonology were consulted. Sepsis Due to possible pneumonia. He received broad spectrum IV antibiotics. Treatment as above. Atrial fibrillation with rapid ventricular response He was resumed on metoprolol and Cardizem. Anticoagulation was recommended by cardiology. His heart rate was suboptimally controlled at the time of AMA discharge. CAD With mild elevation of troponin. He was continued on aspirin, metoprolol, Imdur and statin. Stress test negative. AMA The pt demanded to leave the hospital against medical advice on 01/20. He did have capacity to make that decision. Pt Condition on Discharge: Stable Discharge Disposition: Discharge Home Discharge Time: > 30 minutes Discharge Instructions DIET: Follow Instructions for: Heart Healthy Diet Follow up Referrals: Cardiology PCP Follow-up Pulmonology New Medications: Diltiazem (Cardizem) 60 Mg Tab 60 MG PO Q6HR A fib #120 TAB Continued Medications: Albuterol Neb (Albuterol Neb) 2.5 Mg/3 Ml Neb 2.5 MG NEB Q2HR NEB PRN sob #[address] (Aspirin 81) 81 Mg Tabdr 81 MG PO DAILY Ref 0 TAB Atorvastatin (Atorvastatin) 40 Mg Tab 40 MG PO HS Cholesterol Management #30 Ref 0 TAB Budesonide-Formoterol Inh (Symbicort Inh) 160-4.5 Mcg/Act Aero 2 PUFF INH Q12HR #1 Ref 0 INHALER Cyclobenzaprine (Flexeril) 5 Mg Tab 5 MG PO TID PRN MUSCLE SPASM #90 Ref 0 TAB Ferrous Sulfate (Ferrous Sulfate) 325 Mg (65 Mg Iron) Tablet 325 MG PO TIDPC Nutritional Supplement #90 Ref 0 TAB Furosemide (Lasix) 20 Mg Tab 20 MG PO BID #60 Ref 0 TAB Gabapentin (Gabapentin) 300 Mg Cap 300 MG PO HS #30 Ref 0 CAP Guaifenesin (Guaifenesin ER) 600 Mg Tab.er.12h 1 TAB PO BID Hydrocodone-Acetaminophen ([place]odges) 5-325 mg Tab 1 TAB PO Q6HR PRN PAIN Ref 0 TAB Insulin Lispro (Human) Inj (Humalog Cartridge Inj) 300 Unit/3 Ml Soln 2-10 UNITS SQ TIDAC PRN Blood Sugar Management Ref 0 BOX Ipratropium-Albuterol Neb (Duoneb) 0.5-2.5 Mg/3 Ml Neb 1 NEBULE INH TID Breathing Treatment #30 Ref 0 NEBULE Isosorbide Mononitrate (Isosorbide Mononitrate) 20 Mg Tab 60 MG PO DAILY Take 2 doses 7 hours apart. Prevent Chest Pain #60 Ref 0 TAB Lidocaine Patch 12 HR (Lidocaine Patch 12 HR) 5 % Patch 1 PATCH TOPICAL DAILY Remove patch after 12 hours #1 Ref 0 BOX Metoprolol Tartrate (Metoprolol Tartrate) 25 Mg Tab 12.5 MG PO BID #60 Ref 0 TAB Multiple Vitamin (Daily [place]) 1 Tab Tab 1 TAB PO DAILY Potassium Chloride ER (Klor-Con 10) 10 Meq Tab 10 MEQ PO BID Electrolyte Replacement #60 Ref 0 TAB Prednisone (Prednisone) 10 Mg Tab 10 MG PO DAILY Ref 0 TAB Temazepam (Temazepam) 15 Mg Cap 15 MG PO HS INSOMNIA #30 Ref 0 CAP Discontinued Medications: Diltiazem (Cardizem) 30 Mg Tab 30 MG PO QID Regulate Heart Beat #120 TAB Sarbjit Mendes DO Jan 20, 2017 17:23
[2017-01-20] MEDS ORDERED: predniSONE 10 MG TAB PO SCH (21:00)
[2017-01-22] MEDS ORDERED: PHARMACY ORDERED LAB ONE (17:45)
== END 2017-01-20 17:33 | disposition home or self-care (01) | DRG 871 ==
LOC: PHED 12:01 → PHEDA 13:51 → PHICU 14:35
PROVIDERS: ADMIT Hospitalist; ATTEND Hospitalist
DX: A41.9 Sepsis, unspecified organism (principal); I50.33 Acute on chronic diastolic (congestive) heart failure; J96.21 Acute and chronic respiratory failure with hypoxia; N17.9 Acute kidney failure, unspecified; I48.2 Chronic atrial fibrillation; I11.0 Hypertensive heart disease with heart failure; Z99.81 Dependence on supplemental oxygen; J18.9 Pneumonia, unspecified organism; J96.22 Acute and chronic respiratory failure with hypercapnia; J44.1 Chronic obstructive pulmonary disease with (acute) exacerbation; E78.5 Hyperlipidemia, unspecified; I25.10 Atherosclerotic heart disease of native coronary artery without angina pectoris; I25.2 Old myocardial infarction; G47.00 Insomnia, unspecified; K21.9 Gastro-esophageal reflux disease without esophagitis; G89.29 Other chronic pain; M54.9 Dorsalgia, unspecified; F17.210 Nicotine dependence, cigarettes, uncomplicated; Z66 Do not resuscitate; Z87.442 Personal history of urinary calculi; Z95.1 Presence of aortocoronary bypass graft; Z53.20 Procedure and treatment not carried out because of patient's decision for unspecified reasons
CPT/HCPCS: 36600; 71010; 78452; 80048; 82550; 82805; 82948; 83880; 84484; 85025; 87040; 93005; 93017; 93306; 94002; 94640; 94664; 96365; 96375; A9502; J0456; J0692; J0696; J1650; J1815; J1940; J2270; J2785; J2920; J2930; J3370; J7040; J7050; J7613